=== PATIENT | male | born 1945 | race Caucasian/White ===

== ENCOUNTER 2021-10-01 08:13 | Outpatient (CLI) | payer MEDICARE, MEDICAID, SELFPAY | END 2021-10-01 08:14 | disposition home or self-care (01) | LOC: ANHBWCAUD 08:14 | PROVIDERS: PCP Family Medicine; Visit Provider Family Medicine | DX: H90.3 Sensorineural hearing loss, bilateral (principal) | CPT/HCPCS: 92557; 92567 ==

== ENCOUNTER 2024-09-18 08:14 | Outpatient (CLI) | payer MEDICARE, MEDICAID, SELFPAY ==
--- OUTSIDE RECORDS SUMMARY | 2024-09-18 08:30 | XMS_ITS | Encounter Summary ---
Author Organization [facility] Address [address] [place] [address] Phone Care Team Providers Care Auto Brake Mechanic Name Role Phone Kenyon Cardoso DO Unavailable [phone] Belem Nova MD Unavailable Provider, Unknown Primary Care Provider Unavaila Kahlil Bell MD Primary Care Provider Kacy Blackman MD Primary Care Provider Unavailable Encounter Details Date Type Department Care Team (Late st Contact Info) Description 08/25/2021 [facility] 1 [place] [address] Kahlil Casas MD [address] [place] [address] [address] [place] [address] Encounter for screening for COVID-19 Social History Tobacco Use Types Packs/Day Years Used Date Smoking Tobacco: Former Cigarettes 1 12 2 002 - 2014 Smokeless Tobacco: Never Comments:2014 Alcohol Use Standard Drinks/Week Comments No 0 (1 standard drink = 0.6 oz pur e alcohol) Sex and Gender Information Value Date Recorded Sex Assigned at Not on file Legal Sex Male 7:47 PM CDT Gender Identity Not on file Sexual Orientation Not on file Occupation Industry Job Start Date Job End Date disabilty Not on file Not on file Not on file challenge unlimited. Not on file Not on file Not on file documented as of this encounter Plan of Treatment Not on file documented as of this encounter Procedures Procedure Name Priority Date/Time Associated Diagnosis Comments SARS-COV-2 BY MOLECULAR Routine 08/25/2021 8:05 AM DIRECTOR OF MANAGED CARE Encounter for screening for COVID-19 documented in this encounter Results * SARS-COV-2 BY MOLECULAR (08/25/2021 8:05 AM DIRECTOR OF MANAGED CARE) SARSCOV2 NOT DETECTED (Referen ce Range for this test is Not Detected ) [facility] THERMOFISHER FAST DX 08/26/2021 7:09 AM DIRECTOR OF MANAGED CARE [facility] Comment:This test was perfor med by a RT-PCR method. Other Non-Phlebotomy Collection / Unknown 08/25/2021 8:05 AM DIRECTOR OF MANAGED CARE 08/25/2021 10:58 AM DIRECTOR OF MANAGED CARE Narrative [facility] - 08/26/2021 7:09 AM DIRECTOR OF MANAGED CARE Authorized Fact Sheets about this test for providers and patients are available at: https://www.fda.gov/medical-devices/miynmgjjw-xjadmrhfnh-dyuuvsc-devices/emergen -us e-authorizations Result [facility] Kahlil Casas MD MICROBIOLOGY - GENERAL ORDERAB LES Final Result [facility] [address] [place] [address], documented in this encounter Visit Diagnoses Diagnosis Encounter for screening for COVID-19 documented in this encounter Additional Health Concerns Infection Onset Date Last Indicated Resolved Time COVID - 19 03/31/2021 05/18/2022 05/28/2022 12:1 6 AM DIRECTOR OF MANAGED CARE COVID - 19 07/06/2022 08/31/2022 09/01/2022 11:3 5 AM DIRECTOR OF MANAGED CARE COVID - 19 Confirmed 08/31/2022 08/31/2022 023 12:18 AM CDT documented as of this encounter Care Teams Auto Brake Mechanic Relationship Specialty Start Date End Date Provider, Unknown UNKNOWN PCP - General 03/31/21 05/17/22 Kahlil Casas MD [address] [facility] [address] [place] [address] PCP - General Family Medicine 05/18/22 10/25/22 Kacy Blackman MD [address] [facility] [address] [place] [address] PCP - General Family Medicine 10/26/22 Kenyon Cardoso DO Gastroenterology 11/24/15 [place] [address] [place] [address] Endocrinology 11/30/20 documented as of this encounter
--- OUTSIDE RECORDS SUMMARY | 2024-09-18 08:30 | XMS_ITS | Encounter Summary ---
[facility] Address [address] [place] [address] Phone Care Team Providers Care Manager Life Name Role Phone Kacy Blackman MD Primary Care Provider + [phone] Abbi Monique NP Unavailable [phone] Quita Zapien NP Primary Care Provider + [phone] Desmond Grubbs MD Primary Care Provider + Encounter Details Date Type Department Care Team (Late st Contact Info) Description 05/18/2022 Orders Only [facility] [address] [place] [address] Scanning, Provider Social History Tobacco Use Types Packs/Day Years Used Date Smoking Tobacco: Never Smokeless Tobacco: Never Alcohol Use Standard Drinks/Week Comments No 0 (1 standard drink = 0.6 oz pur e alcohol) PHQ-2 Answer Date Recorded PHQ-2 Total Score (If total score is 3 or more points, staff should administer the PHQ-9) 0 04/19/2022 Sex and Gender Information Value Date Recorded Sex Assigned at Not on file Legal Sex Male 2:47 PM CRIMINOLOGY PROFESSOR Gender Identity Not on file Sexual Orientation Not on file documented as of this encounter Plan of Treatment Not on file documented as of this encounter Procedures Procedure Name Priority Date/Time Associated Diagnosis Comments CARDIOLOGY DOCUMENT SCAN 05/18/2022 documented in this encounter Results * CARDIOLOGY DOCUMENT SCAN (05/18/2022) Anatomical Region Laterality Modality Other us Provider Scanning CV CARDIAC SERVICES PROCEDURES Final Result documented in this encounter Visit Diagnoses Not on filedocumented in this encounter Care Teams Manager Life Relationship Specialty Start Date End Date Kacy Blackman MD PCP - General Family Practice 04/19/22 12/28/23 Quita Zapien NP [address] [facility] [address] [place] [address] PCP - General Fondant Puff Maker 12/29/23 08/18/24 Desmond Grubbs MD [address] [facility] [address] [place] [address] PCP - General Family Medicine 08/19/24 [place] [address] [place] [address] Nurse Practitioner Endocrinology Diabetes & Metabolism 12/15/23 documented as of this encounter
--- OUTSIDE RECORDS SUMMARY | 2024-09-18 08:30 | XMS_ITS | Encounter Summary ---
Author Organization [facility] Address [address] [place] [address] Phone Care Team Providers Care Horticultural Farmer Name Role Phone Kacy Blackman MD Primary Care Provider + [phone] Abbi Monique NP Unavailable [phone] Quita Zapien NP Primary Care Provider + [phone] Desmond Grubbs MD Primary Care Provider + Encounter Details Date Type Department Care Team (Late st Contact Info) Description 06/23/2022 Orders Only [facility] [address] [place] [address] Scanning, Provider Social History Tobacco [...] on file Legal Sex Male 2:47 PM RICE DRIER Gender Identity Not on file Sexual Orientation Not on file documented as of this encounter Plan of Treatment Not on file documented as of this encounter Procedures Procedure Name Priority Date/Time Associated Diagnosis Comments SCAN - LABS 06/23/2022 documented in this encounter Results * SCAN - LABS (06/23/2022) us Provider Scanning Final Result documented in this encounter Visit Diagnoses Not on filedocumented in this encounter Care Teams Horticultural Farmer Relationship Specialty Start Date End Date Kacy Blackman MD PCP - General Family Practice 04/19/22 12/28/23 Quita Zapien NP [address] [facility] [address] [place] [address] PCP - General Superintendent Building 12/29/23 08/18/24 Desmond Grubbs MD [address] [facility] [address] [place] [address] PCP - General Family Medicine 08/19/24 [place] [address] [place] [address] Nurse Practitioner Endocrinology Diabetes & Metabolism 12/15/23 documented as of this encounter
--- OUTSIDE RECORDS SUMMARY | 2024-09-18 08:30 | XMS_ITS | Encounter Summary ---
Author Organization [facility] Address [address] [place] [address] Phone Care Team Providers Care Program And Research Coordinator Name Role Phone Kenyon Cardoso DO Unavailable [phone] Belem Nova MD Unavailable Provider, Unknown Primary Care Provider Unavaila Kahlil Bell MD Primary Care Provider Kacy Blackman MD Primary Care Provider Unavailable Encounter Details Date Type Department Care Team (Late st Contact Info) Description 07/28/2021 [facility] 1 [place] [address] Kahlil Casas MD [address] [place] [address] [address] [place] [address] Encounter for screening for COVID-19 [...] Associated Diagnosis Comments SARS-COV-2 BY MOLECULAR Routine 07/28/2021 6:57 AM STAB SETTER AND DRILLER Encounter for screening for COVID-19 documented in this encounter Results * SARS-COV-2 BY MOLECULAR (07/28/2021 6:57 AM STAB SETTER AND DRILLER) SARSCOV2 NOT DETECTED (Referen ce Range for this test is Not Detected ) [facility] THERMOFISHER FAST DX 07/30/2021 9:45 AM STAB SETTER AND DRILLER [facility] Comment:This test was perfor med by a RT-PCR method. Other Non-Phlebotomy Collection / Unknown 07/28/2021 6:57 AM STAB SETTER AND DRILLER 07/28/2021 1:41 PM STAB SETTER AND DRILLER Narrative [facility] - 07/30/2021 9:45 AM STAB SETTER AND DRILLER Authorized Fact Sheets about this test for providers and patients are available at: https://www.fda.gov/medical-devices/icqlsetmg-ubkuosfkfo-ulkiran-devices/emergen -us e-authorizations Kahlil Casas MD MICROBIOLOGY - GENERAL ORDERAB LES Final Result [facility] [address] [place] [address], documented in this encounter Visit Diagnoses Diagnosis Encounter for screening for COVID-19 documented in this encounter Additional Health Concerns Infection Onset Date Last Indicated Resolved Time COVID - 19 03/31/2021 05/18/2022 05/28/2022 12:1 6 AM STAB SETTER AND DRILLER COVID - 19 07/06/2022 08/31/2022 09/01/2022 11:3 5 AM STAB SETTER AND DRILLER COVID - 19 Confirmed 08/31/2022 08/31/202209/20/ 023 12:18 AM CDT documented as of this encounter Care Teams Program And Research Coordinator Relationship Specialty Start Date End Date Provider, Unknown UNKNOWN PCP - General 03/31/21 05/17/22 Kahlil Casas MD [address] [facility] [address] [place] [address] PCP - General Family Medicine 05/18/22 10/25/22 Kacy Blackman MD [address] [facility] [address] [place] [address] PCP - General Family Medicine 10/26/22 Kenyon Cardoso DO Gastroenterology 11/24/15 [place] [address] [place] [address] Endocrinology 11/30/20 documented as of this encounter
--- OUTSIDE RECORDS SUMMARY | 2024-09-18 08:30 | XMS_ITS | Encounter Summary ---
Author Organization [facility] Address [address] [place] [address] Phone Care Team Providers Care It Network Architect Name Role Phone Kenyon Cardoso DO Unavailable [phone] Belem Nova MD Unavailable Provider, Unknown Primary Care Provider Unavaila Kahlil Bell MD Primary Care Provider Kacy Blackman MD Primary Care Provider Unavailable Encounter Details Date Type Department Care Team (Late st Contact Info) Description 08/04/2021 [facility] 1 [place] [address] Kahlil Casas MD [address] [place] [address] [address] [place] [address] Encounter for screening for COVID-19 [...] Associated Diagnosis Comments SARS-COV-2 BY MOLECULAR Routine 08/04/2021 8:06 AM HOSPICE CARE TRANSITIONS COORDINATOR Encounter for screening for COVID-19 documented in this encounter Results * SARS-COV-2 BY MOLECULAR (08/04/2021 8:06 AM HOSPICE CARE TRANSITIONS COORDINATOR) SARSCOV2 NOT DETECTED (Referen ce Range for this test is Not Detected ) [facility] THERMOFISHER FAST DX 08/05/2021 9:00 AM HOSPICE CARE TRANSITIONS COORDINATOR [facility] Comment:This test was perfor med by a RT-PCR method. Other Non-Phlebotomy Collection / Unknown 08/04/2021 8:06 AM HOSPICE CARE TRANSITIONS COORDINATOR 08/04/2021 11:52 AM HOSPICE CARE TRANSITIONS COORDINATOR Narrative [facility] - 08/05/2021 9:00 AM HOSPICE CARE TRANSITIONS COORDINATOR Authorized Fact Sheets about this test for providers and patients are available at: https://www.fda.gov/medical-devices/btwictmqg-tryotrtxgf-jukhtwy-devices/emergen -us e-authorizations Result [facility] Kahlil Casas MD MICROBIOLOGY - GENERAL ORDERAB LES Final Result [facility] [address] [place] [address], documented in this encounter Visit Diagnoses Diagnosis Encounter for screening for COVID-19 documented in this encounter Additional Health Concerns Infection Onset Date Last Indicated Resolved Time COVID - 19 03/31/2021 05/18/2022 05/28/2022 12:1 6 AM HOSPICE CARE TRANSITIONS COORDINATOR COVID - 19 07/06/2022 08/31/2022 09/01/2022 11:3 5 AM HOSPICE CARE TRANSITIONS COORDINATOR COVID - 19 Confirmed 08/31/2022 08/31/202209/20/ 023 12:18 AM CDT documented as of this encounter Care Teams It Network Architect Relationship Specialty Start Date End Date Provider, Unknown UNKNOWN PCP - General 03/31/21 05/17/22 Kahlil Casas MD [address] [facility] [address] [place] [address] PCP - General Family Medicine 05/18/22 10/25/22 Kacy Blackman MD [address] [facility] [address] [place] [address] PCP - General Family Medicine 10/26/22 Kenyon Cardoso DO Gastroenterology 11/24/15 [place] [address] [place] [address] Endocrinology 11/30/20 documented as of this encounter
--- OUTSIDE RECORDS SUMMARY | 2024-09-18 08:31 | XMS_ITS | Encounter Summary ---
Author [facility] Address [address] [place] [address] Phone Care Team Providers Care Cooperative Extension Agent Name Role Phone Kacy Blackman MD Primary Care Provider + [phone] Abbi Monique NP Unavailable [phone] Quita Zapien NP Primary Care Provider + [phone] Desmond Grubbs MD Primary Care Provider + Encounter Details Date Type Department Care Team (Late st Contact Info) Description 09/07/2022 Orders Only [facility] [address] [place] [address] Scanning, Provider Social History Tobacco [...] on file Legal Sex Male 2:47 PM DETONATOR ASSEMBLER Gender Identity Not on file Sexual Orientation Not on file documented as of this encounter Plan of Treatment Not on file documented as of this encounter Procedures Procedure Name Priority Date/Time Associated Diagnosis Comments SCAN - LABS 09/07/2022 documented in this encounter Results * SCAN - LABS (09/07/2022) us Provider Scanning Edited Result - Final documented in this encounter Visit Diagnoses Not on filedocumented in this encounter Care Teams Cooperative Extension Agent Relationship Specialty Start Date End Date Kacy Blackman MD PCP - General Family Practice 04/19/22 12/28/23 Quita Zapien NP [address] [facility] [address] [place] [address] PCP - General Night Manager 12/29/23 08/18/24 Desmond Grubbs MD [address] [facility] [address] [place] [address] PCP - General Family Medicine 08/19/24 [place] [address] [place] [address] Nurse Practitioner Endocrinology Diabetes & Metabolism 12/15/23 documented as of this encounter
--- OUTSIDE RECORDS SUMMARY | 2024-09-18 08:31 | XMS_ITS | Encounter Summary ---
Author Organization [facility] Address [address] [place] [address] Phone Care Team Providers Care Orthotist Or Prosthetist Name Role Phone Kenyon Cardoso DO Unavailable [phone] Belem Nova MD Unavailable Provider, Unknown Primary Care Provider Unavaila Kahlil Bell MD Primary Care Provider Kacy Blackman MD Primary Care Provider Unavailable Encounter Details Date Type Department Care Team (Late st Contact Info) Description 05/05/2021 [facility] 1 [place] [address] Kahlil Casas MD [address] [place] [address] [address] [place] [address] Encounter for screening for COVID-19 [...] Associated Diagnosis Comments SARS-COV-2 BY MOLECULAR Routine 05/05/2021 8:31 AM CDT Encounter for screening for COVID-19 documented in this encounter Results * SARS-COV-2 BY MOLECULAR (05/05/2021 8:31 AM CDT) SARSCOV2 NOT DETECTED (Referen ce Range for this test is Not Detected ) [facility] THERMOFISHER FAST DX 05/05/2021 11:06 PM CDT [facility] Comment:This test was perfor med by a RT-PCR method. Other Non-Phlebotomy Collection / Unknown 05/05/2021 8:31 AM CDT 05/05/2021 11:10 AM CDT Narrative [facility] - 05/05/2021 11:06 PM CDT Authorized Fact Sheets about this test for providers and patients are available at: https://www.fda.gov/medical-devices/qydfdmdus-dqvhhdtqnj-emdcdoj-devices/emergen cy-us e-authorizations us Kahlil Casas MD MICROBIOLOGY - GENERAL ORDERAB LES Final Result [facility] [address] [place] [address], documented in this encounter Visit Diagnoses Diagnosis Encounter for screening for COVID-19 documented in this encounter Additional Health Concerns Infection Onset Date Last Indicated Resolved Time COVID - 19 03/31/2021 05/18/2022 05/28/2022 12:1 6 AM AQUATICS MANAGER COVID - 19 07/06/2022 08/31/2022 09/01/2022 11:3 5 AM AQUATICS MANAGER COVID - 19 Confirmed 08/31/2022 08/31/202209/20/ 023 12:18 AM CDT documented as of this encounter Care Teams Orthotist Or Prosthetist Relationship Specialty Start Date End Date Provider, Unknown UNKNOWN PCP - General 03/31/21 05/17/22 Kahlil Casas MD [address] [place] [address] [address] [place] [address] PCP - General Family Medicine 05/18/22 10/25/22 Kacy Blackman MD [address] [facility] [address] [place] [address] PCP - General Family Medicine 10/26/22 Kenyon Cardoso DO Gastroenterology 11/24/15 [place] [address] [place] [address] Endocrinology 11/30/20 documented as of this encounter
--- OUTSIDE RECORDS SUMMARY | 2024-09-18 08:31 | XMS_ITS | Encounter Summary ---
Author Organization [facility] Address [address] [place] [address] Phone Care Team Providers Care Computer Help Desk Specialist Name Role Phone Kenyon Cardoso DO Unavailable [phone] Belem Nova MD Unavailable Provider, Unknown Primary Care Provider Unavaila Kahlil Bell MD Primary Care Provider Kacy Blackman MD Primary Care Provider Unavailable Encounter Details Date Type Department Care Team (Late st Contact Info) Description 09/01/2021 [facility] 1 [place] [address] Kahlil Casas MD [address] [place] [address] [address] [place] [address] Encounter for screening for COVID-19 [...] Associated Diagnosis Comments SARS-COV-2 BY MOLECULAR Routine 09/01/2021 8:19 AM MANUFACTURING PLANNER Encounter for screening for COVID-19 documented in this encounter Results * SARS-COV-2 BY MOLECULAR (09/01/2021 8:19 AM MANUFACTURING PLANNER) SARSCOV2 NOT DETECTED (Referen ce Range for this test is Not Detected ) [facility] THERMOFISHER FAST DX 09/01/2021 11:41 PM MANUFACTURING PLANNER [facility] Comment:This test was perfor med by a RT-PCR method. Other Non-Phlebotomy Collection / Unknown 09/01/2021 8:19 AM MANUFACTURING PLANNER 09/01/2021 11:51 AM MANUFACTURING PLANNER Narrative [facility] - 09/01/2021 11:41 PM MANUFACTURING PLANNER Authorized Fact Sheets about this test for providers and patients are available at: https://www.fda.gov/medical-devices/paywpmdcb-pgkbzhvpgj-kneoagt-devices/emergen -us e-authorizations Result [facility] Kahlil Casas MD MICROBIOLOGY - GENERAL ORDERAB LES Final Result [facility] [address] [place] [address], documented in this encounter Visit Diagnoses Diagnosis Encounter for screening for COVID-19 documented in this encounter Additional Health Concerns Infection Onset Date Last Indicated Resolved Time COVID - 19 03/31/2021 05/18/2022 05/28/2022 12:1 6 AM MANUFACTURING PLANNER COVID - 19 07/06/2022 08/31/2022 09/01/2022 11:3 5 AM MANUFACTURING PLANNER COVID - 19 Confirmed 08/31/2022 08/31/202209/20/ 023 12:18 AM CDT documented as of this encounter Care Teams Computer Help Desk Specialist Relationship Specialty Start Date End Date Provider, Unknown UNKNOWN PCP - General 03/31/21 05/17/22 Kahlil Casas MD [address] [facility] [address] [place] [address] PCP - General Family Medicine 05/18/22 10/25/22 Kacy Blackman MD [address] [facility] [place] [address] PCP - General Family Medicine 10/26/22 Kenyon Cardoso DO Gastroenterology 11/24/15 [place] [address] [place] [address] Endocrinology 11/30/20 documented as of this encounter
--- OUTSIDE RECORDS SUMMARY | 2024-09-18 08:31 | XMS_ITS | Encounter Summary ---
Author Organization [facility] Address [address] [place] [address] Phone Care Team Providers Care National Sales Associate Name Role Phone Keynon Cardoso DO Unavailable [phone] Belem Nova MD Unavailable Provider, Unknown Primary Care Provider Unavaila Kahlil Bell MD Primary Care Provider Kacy Blackman MD Primary Care Provider Unavailable Encounter Details Date Type Department Care Team (Late st Contact Info) Description 09/22/2021 [facility] 1 [place] [address] Kahlil Casas MD [address] [place] [address] [address] [place] [address] Encounter for screening for COVID-19 [...] Associated Diagnosis Comments SARS-COV-2 BY MOLECULAR Routine 09/22/2021 8:21 AM CDT Encounter for screening for COVID-19 documented in this encounter Results * SARS-COV-2 BY MOLECULAR (09/22/2021 8:21 AM CDT) SARSCOV2 NOT DETECTED (Referen ce Range for this test is Not Detected ) [facility] THERMOF[facility] FAST DX 09/23/2021 10:15 AM CDT [facility] Comment:This test was perfor med by a RT-PCR method. Other Non-Phlebotomy Collection / Unknown 09/22/2021 8:21 AM CDT 09/22/2021 1:02 PM CDT Narrative [facility] - 09/23/2021 10:15 AM CDT Authorized Fact Sheets about this test for providers and patients are available at: https://www.fda.gov/medical-devices/eedklxeaf-gaxiasjhmq-hzeezse-devices/emergen cy-us e-authorizations us Kahlil Casas MD MICROBIOLOGY - GENERAL ORDERAB LES Final Result [facility] [address] [place] [address], documented in this encounter Visit Diagnoses Diagnosis Encounter for screening for COVID-19 documented in this encounter Additional Health Concerns Infection Onset Date Last Indicated Resolved Time COVID - 19 03/31/2021 05/18/2022 05/28/2022 12:1 6 AM BROTHEL KEEPER COVID - 19 07/06/2022 08/31/2022 09/01/2022 11:3 5 AM BROTHEL KEEPER COVID - 19 Confirmed 08/31/2022 08/31/2022 023 12:18 AM CDT documented as of this encounter Care Teams National Sales Associate Relationship Specialty Start Date End Date Provider, Unknown UNKNOWN PCP - General 03/31/21 05/17/22 Kahlil Casas MD [address] [place] [address] [address] [place] [address] PCP - General Family Medicine 05/18/22 10/25/22 Kacy Blackman MD [address] [facility] [address] [place] [address] PCP - General Family Medicine 10/26/22 Kenyon Cardoso DO Gastroenterology 11/24/15 [place] [address] [place] [address] Endocrinology 11/30/20 documented as of this encounter
--- OUTSIDE RECORDS SUMMARY | 2024-09-18 08:31 | XMS_ITS | Encounter Summary ---
Author Organization [facility] Address [address] [place] [address] Phone Care Team Providers Care Planning Management It Specialist Name Role Phone Kenyon Cardoso DO Unavailable [phone] Belem Nova MD Unavailable Kahlil Casas MD Primary Care Provider [phone] Kacy Blackman MD Primary Care Provider Unavailable Encounter Details Date Type Department Care Team (Late st Contact Info) Description 08/10/2022 Lab Requisition [facility] Laboratory Services 1 [place] [address] Kahlil Casas MD [address] [place] [address] [address] [place] [address] Encounter for screening for COVID-19 [...] Associated Diagnosis Comments SARS-COV-2 BY MOLECULAR Routine 08/10/2022 8:21 AM AIRPORT SKILLED MAINTENANCE SUPERVISOR Encounter for screening for COVID-19 documented in this encounter Results * SARS-COV-2 BY MOLECULAR (08/10/2022 8:21 AM AIRPORT SKILLED MAINTENANCE SUPERVISOR) SARSCOV2 NOT DETECTED (Referen ce Range for this test is Not Detected ) [facility] THERMOFISHER FAST DX 08/10/2022 9:47 PM AIRPORT SKILLED MAINTENANCE SUPERVISOR [facility] Comment:This test was perfor med by a RT-PCR method. Other Non-Phlebotomy Collection / Unknown 08/10/2022 8:21 AM AIRPORT SKILLED MAINTENANCE SUPERVISOR 08/10/2022 9:50 AM AIRPORT SKILLED MAINTENANCE SUPERVISOR Narrative [facility] - 08/10/2022 9:47 PM AIRPORT SKILLED MAINTENANCE SUPERVISOR Authorized Fact Sheets about this test for providers and patients are available at: https://www.fda.gov/medical-devices/tdvzgvpie-khfnujdinx-ismfvrf-devices/emergen -us e-authorizations us Kahlil Casas MD MICROBIOLOGY - GENERAL ORDERAB LES Final Result [facility] [address] [place] [address], documented in this encounter Visit Diagnoses Diagnosis Encounter for screening for COVID-19 documented in this encounter Additional Health Concerns Infection Onset Date Last Indicated Resolved Time COVID - 19 07/06/2022 08/31/2022 09/01/2022 11:3 5 AM AIRPORT SKILLED MAINTENANCE SUPERVISOR COVID - 19 Confirmed 08/31/2022 08/31/202209/20/ 023 12:18 AM CDT documented as of this encounter Care Teams Planning Management It Specialist Relationship Specialty Start Date End Date Kahlil Casas MD [address] [place] [address] [place] [address] PCP - General Family Medicine 05/18/22 10/25/22 Kacy Blackman MD [address] [place] [address] [place] [address] PCP - General Family Medicine 10/26/22 Kenyon Cardoso DO Gastroenterology 11/24/15 [place] [address] [place] [address] Endocrinology 11/30/20 documented as of this encounter
--- OUTSIDE RECORDS SUMMARY | 2024-09-18 08:31 | XMS_ITS | Encounter Summary ---
Author Organization [facility] Address [address] [place] [address] Phone Care Team Providers Care Internet Sourcer Name Role Phone Kenyon Cardoso DO Unavailable [phone] Belem Nova MD Unavailable Provider, Unknown Primary Care Provider Unavaila Kahlil Bell MD Primary Care Provider [phone] Kacy Blackman MD Primary Care Provider Unavailable Encounter Details Date Type Department Care Team (Late st Contact Info) Description 10/13/2021 Lab Requisition [facility] Laboratory Services 1 [place] [address] Kahlil Casas MD [address] [place] [address] [address] [place] [address] Encounter for screening for other viral diseases Social History Tobacco Use Types Packs/Day Years [...] Associated Diagnosis Comments SARS-COV-2 BY MOLECULAR Routine 10/13/2021 9:03 AM CDT documented in this encounter Results * SARS-COV-2 BY MOLECULAR (10/13/2021 9:03 AM CDT) SARSCOV2 NOT DETECTED (Referen ce Range for this test is Not Detected ) [facility] THERMOFISHER FAST DX 10/13/2021 11:28 PM CDT [facility] Comment:This test was perfor med by a RT-PCR method. Other No Phlebotomy Charged / Unknown 10/13/2021 9:03 AM CDT 10/13/2021 12:21 PM CDT Narrative [facility] - 10/13/2021 11:28 PM CDT Authorized Fact Sheets about this test for providers and patients are available at: https://www.fda.gov/medical-devices/gzcykwnuq-mozveggymq-mnjykbc-devices/emergen -us e-authorizations us Kahlil Casas MD MICROBIOLOGY - GENERAL ORDERAB LES Final Result [facility] [address] [place] [address], documented in this encounter Visit Diagnoses Diagnosis Encounter for screening for other viral diseases documented in this encounter Additional Health Concerns Infection Onset Date Last Indicated Resolved Time COVID - 19 03/31/2021 05/18/2022 05/28/2022 12:1 6 AM DIRECTOR OF REGIONAL SALES COVID - 19 07/06/2022 08/31/2022 09/01/2022 11:3 5 AM DIRECTOR OF REGIONAL SALES COVID - 19 Confirmed 08/31/2022 08/31/2022 023 12:18 AM CDT documented as of this encounter Care Teams Internet Sourcer Relationship Specialty Start Date End Date Provider, Unknown UNKNOWN PCP - General 03/31/21 05/17/22 Kahlil Casas MD [address] [facility] [address] [place] [address] PCP - General Family Medicine 05/18/22 10/25/22 Kacy Blackman MD [address] [facility] [place] [address] PCP - General Family Medicine 10/26/22 Kenyon Cardoso DO Gastroenterology 11/24/15 [place] [address] [place] [address] Endocrinology 11/30/20 documented as of this encounter
--- OUTSIDE RECORDS SUMMARY | 2024-09-18 08:31 | XMS_ITS | Encounter Summary ---
Author Organization [facility] Address [address] [place] [address] Phone Care Team Providers Care Automation Qa Tester Name Role Phone Kenyon Cardoso DO Unavailable [phone] Belme Nova MD Unavailable Provider, Unknown Primary Care Provider Unavaila Kahlil Bell MD Primary Care Provider [phone] Kacy Blackman MD Primary Care Provider Unavailable Encounter Details Date Type Department Care Team (Late st Contact Info) Description 09/29/2021 [facility] 1 [place] [address] Kahlil Casas MD [address] [place] [address] [address] [place] [address] Encounter for screening for COVID-19 [...] Associated Diagnosis Comments SARS-COV-2 BY MOLECULAR Routine 09/29/2021 7:59 AM CDT Encounter for screening for COVID-19 documented in this encounter Results * SARS-COV-2 BY MOLECULAR (09/29/2021 7:59 AM CDT) SARSCOV2 NOT DETECTED (Referen ce Range for this test is Not Detected ) [facility] THERMOFISHER FAST DX 09/30/2021 12:07 AM CDT [facility] Comment:This test was perfor med by a RT-PCR method. Other Non-Phlebotomy Collection / Unknown 09/29/2021 7:59 AM CDT 09/29/2021 12:04 PM CDT Narrative [facility] - 09/30/2021 12:07 AM CDT Authorized Fact Sheets about this test for providers and patients are available at: https://www.fda.gov/medical-devices/dtjoevfyn-fsmrljbrto-gctnpge-devices/emergen cy-us e-authorizations us Kahlil Casas MD MICROBIOLOGY - GENERAL ORDERAB LES Final Result [facility] [address] [place] [address], documented in this encounter Visit Diagnoses Diagnosis Encounter for screening for COVID-19 documented in this encounter Additional Health Concerns Infection Onset Date Last Indicated Resolved Time COVID - 19 03/31/2021 05/18/2022 05/28/2022 12:1 6 AM CREDIT CLERK COVID - 19 07/06/2022 08/31/2022 09/01/2022 11:3 5 AM CREDIT CLERK COVID - 19 Confirmed 08/31/2022 08/31/202209/20/ 023 12:18 AM CDT documented as of this encounter Care Teams Automation Qa Tester Relationship Specialty Start Date End Date Provider, Unknown UNKNOWN PCP - General 03/31/21 05/17/22 Kahlil Casas MD [address] [place] [address] [address] [place] [address] PCP - General Family Medicine 05/18/22 10/25/22 Kacy Blackman MD [address] [facility] [address] [place] [address] PCP - General Family Medicine 10/26/22 Kenyon Cardoso DO Gastroenterology 11/24/15 [place] [address] [place] [address] Endocrinology 11/30/20 documented as of this encounter
--- OUTSIDE RECORDS SUMMARY | 2024-09-18 08:31 | XMS_ITS | Encounter Summary ---
Author Organization [facility] Address [address] [place] [address] Phone Care Team Providers Care Condominium Property Manager Name Role Phone Kenyon Cardoso DO Unavailable [phone] Belem Nova MD Unavailable Provider, Unknown Primary Care Provider Unavaila Kahlil Bell MD Primary Care Provider [phone] Kacy Blackman MD Primary Care Provider Unavailable Encounter Details Date Type Department Care Team (Late st Contact Info) Description 05/26/2021 Lab Requisition [facility] Laboratory Services 1 [place] [address] Kahlil Casas MD [address] [place] [address] [address] [place] [address] Social History Tobacco Use Types Packs/Day Years [...] Associated Diagnosis Comments SARS-COV-2 BY MOLECULAR Routine 05/26/2021 8:45 AM LAND ACQUISITION ANALYST documented in this encounter Results * SARS-COV-2 BY MOLECULAR (05/26/2021 8:45 AM LAND ACQUISITION ANALYST) SARSCOV2 NOT DETECTED (Referen ce Range for this test is Not Detected ) [facility] THERMOFISHER FAST DX 05/27/2021 9:14 AM LAND ACQUISITION ANALYST [facility] Comment:This test was perfor med by a RT-PCR method. Other Non-Phlebotomy Collection / Unknown 05/26/2021 8:45 AM LAND ACQUISITION ANALYST 05/26/2021 11:16 AM LAND ACQUISITION ANALYST Narrative [facility] - 05/27/2021 9:14 AM LAND ACQUISITION ANALYST Authorized Fact Sheets about this test for providers and patients are available at: https://www.fda.gov/medical-devices/pfjpmzbvz-fflvtopiqm-gyvbjeh-devices/emergen cy-us e-authorizations us Kahlil Casas MD MICROBIOLOGY - GENERAL ORDERAB LES Final Result [facility] [address] [place] [address], documented in this encounter Visit Diagnoses Not on filedocumented in this encounter Additional Health Concerns Infection Onset Date Last Indicated Resolved Time COVID - 19 03/31/2021 05/18/2022 05/28/2022 12:1 6 AM LAND ACQUISITION ANALYST COVID - 19 07/06/2022 08/31/2022 09/01/2022 11:3 5 AM LAND ACQUISITION ANALYST COVID - 19 Confirmed 08/31/2022 08/31/202209/20/ 023 12:18 AM CDT documented as of this encounter Care Teams Condominium Property Manager Relationship Specialty Start Date End Date Provider, Unknown UNKNOWN PCP - General 03/31/21 05/17/22 Kahlil Casas MD [address] [place] [address] [address] [place] [address] PCP - General Family Medicine 05/18/22 10/25/22 Kacy Blackman MD [address] [facility] [address] [place] [address] PCP - General Family Medicine 10/26/22 Kenyon Cardoso DO Gastroenterology 11/24/15 [place] [address] [place] [address] Endocrinology 11/30/20 documented as of this encounter
--- OUTSIDE RECORDS SUMMARY | 2024-09-18 08:31 | XMS_ITS | Encounter Summary ---
Author Organization [facility] Address [address] [place] [address] Phone Care Team Providers Care Machine Binding Folder Name Role Phone Kenyon Cardoso DO Unavailable [phone] Belem Nova MD Unavailable Provider, Unknown Primary Care Provider Unavaila Kahlil Bell MD Primary Care Provider Kacy Blackman MD Primary Care Provider Unavailable Encounter Details Date Type Department Care Team (Late st Contact Info) Description 09/15/2021 [facility] 1 [place] [address] Kahlil Casas MD [address] [place] [address] [address] [place] [address] Encounter for screening for COVID-19 [...] Associated Diagnosis Comments SARS-COV-2 BY MOLECULAR Routine 09/15/2021 8:02 AM CHECK WRITING MACHINE OPERATOR Encounter for screening for COVID-19 documented in this encounter Results * SARS-COV-2 BY MOLECULAR (09/15/2021 8:02 AM CHECK WRITING MACHINE OPERATOR) SARSCOV2 NOT DETECTED (Referen ce Range for this test is Not Detected ) [facility] THERMOFISHER FAST DX 09/16/2021 10:22 AM CHECK WRITING MACHINE OPERATOR [facility] Comment:This test was perfor med by a RT-PCR method. Other Non-Phlebotomy Collection / Unknown 09/15/2021 8:02 AM CHECK WRITING MACHINE OPERATOR 09/15/2021 10:40 AM CHECK WRITING MACHINE OPERATOR Narrative [facility] - 09/16/2021 10:22 AM CHECK WRITING MACHINE OPERATOR Authorized Fact Sheets about this test for providers and patients are available at: https://www.fda.gov/medical-devices/ycbzzajxc-gayemaalyw-kmriddd-devices/emergen -us e-authorizations Result [facility] Kahlil Casas MD MICROBIOLOGY - GENERAL ORDERAB LES Final Result [facility] [address] [place] [address], documented in this encounter Visit Diagnoses Diagnosis Encounter for screening for COVID-19 documented in this encounter Additional Health Concerns Infection Onset Date Last Indicated Resolved Time COVID - 19 03/31/2021 05/18/2022 05/28/2022 12:1 6 AM CHECK WRITING MACHINE OPERATOR COVID - 19 07/06/2022 08/31/2022 09/01/2022 11:3 5 AM CHECK WRITING MACHINE OPERATOR COVID - 19 Confirmed 08/31/2022 08/31/2022 023 12:18 AM CDT documented as of this encounter Care Teams Machine Binding Folder Relationship Specialty Start Date End Date Provider, Unknown UNKNOWN PCP - General 03/31/21 05/17/22 Kahlil Casas MD [address] [facility] [address] [place] [address] PCP - General Family Medicine 05/18/22 10/25/22 Kacy Blackman MD [address] [facility] [place] [address] PCP - General Family Medicine 10/26/22 Kenyon Cardoso DO Gastroenterology 11/24/15 [place] [address] [place] [address] Endocrinology 11/30/20 documented as of this encounter
--- OUTSIDE RECORDS SUMMARY | 2024-09-18 08:31 | XMS_ITS | Encounter Summary ---
Author Organization [facility] Address [address] [place] [address] Phone Care Team Providers Care Organ Assembler Name Role Phone Kenyon Cardoso DO Unavailable [phone] Belem Nova MD Unavailable Provider, Unknown Primary Care Provider Unavaila Kahlil Bell MD Primary Care Provider Kacy Blackman MD Primary Care Provider Unavailable Encounter Details Date Type Department Care Team (Late st Contact Info) Description 10/06/2021 [facility] 1 [place] [address] Kahlil Casas MD [address] [place] [address] [address] [place] [address] Encounter for screening for [...] Associated Diagnosis Comments SARS-COV-2 BY MOLECULAR Routine 10/06/2021 8:34 AM CDT Encounter for screening for COVID-19 documented in this encounter Results * SARS-COV-2 BY MOLECULAR (10/06/2021 8:34 AM CDT) SARSCOV2 NOT DETECTED (Referen ce Range for this test is Not Detected ) [facility] THERMOFISHER FAST DX 10/07/2021 12:26 AM CDT [facility] Comment:This test was perfor med by a RT-PCR method. Other No Phlebotomy Charged / Unknown 10/06/2021 8:34 AM CDT 10/06/2021 11:50 AM CDT Narrative [facility] - 10/07/2021 12:26 AM CDT Authorized Fact Sheets about this test for providers and patients are available at: https://www.fda.gov/medical-devices/euvplizgx-aegphokbke-kjdkewy-devices/emergen cy-us e-authorizations us Kahlil Casas MD MICROBIOLOGY - GENERAL ORDERAB LES Final Result [facility] [address] [place] [address], documented in this encounter Visit Diagnoses Diagnosis Encounter for screening for COVID-19 documented in this encounter Additional Health Concerns Infection Onset Date Last Indicated Resolved Time COVID - 19 03/31/2021 05/18/2022 05/28/2022 12:1 6 AM HIDE AND SKIN FLESHING MACHINE OPERATOR COVID - 19 07/06/2022 08/31/2022 09/01/2022 11:3 5 AM HIDE AND SKIN FLESHING MACHINE OPERATOR COVID - 19 Confirmed 08/31/2022 08/31/2022 023 12:18 AM CDT documented as of this encounter Care Teams Organ Assembler Relationship Specialty Start Date End Date Provider, Unknown UNKNOWN PCP - General 03/31/21 05/17/22 Kahlil Casas MD [address] [facility] [address] [place] [address] PCP - General Family Medicine 05/18/22 10/25/22 Kacy Balckman MD [address] [facility] [place] [address] PCP - General Family Medicine 10/26/22 Kenyon Cardoso DO Gastroenterology 11/24/15 [place] [address] [place] [address] Endocrinology 11/30/20 documented as of this encounter
--- OUTSIDE RECORDS SUMMARY | 2024-09-18 08:31 | XMS_ITS | Encounter Summary ---
Author Organization [facility] Address [address] [place] [address] Phone Care Team Providers Care Button And Buckle Maker Name Role Phone Kenyon Cardoso DO Unavailable [phone] Belem Nova MD Unavailable Provider, Unknown Primary Care Provider Unavaila Kahlil Bell MD Primary Care Provider Kacy Blackman MD Primary Care Provider Unavailable Encounter Details Date Type Department Care Team (Late st Contact Info) Description 06/23/2021 [facility] 1 [place] [address] Kahlil Casas MD [address] [place] [address] [address] [place] [address] Encounter for screening for COVID-19 [...] Associated Diagnosis Comments SARS-COV-2 BY MOLECULAR Routine 06/23/2021 8:55 AM BOTTLING EQUIPMENT SALES REPRESENTATIVE Encounter for screening for COVID-19 documented in this encounter Results * SARS-COV-2 BY MOLECULAR (06/23/2021 8:55 AM BOTTLING EQUIPMENT SALES REPRESENTATIVE) SARSCOV2 NOT DETECTED (Referen ce Range for this test is Not Detected ) [facility] THERMOFISHER FAST DX 06/24/2021 6:00 PM BOTTLING EQUIPMENT SALES REPRESENTATIVE [facility] Comment:This test was perfor med by a RT-PCR method. Other No Phlebotomy Charged / Unknown 06/23/2021 8:55 AM BOTTLING EQUIPMENT SALES REPRESENTATIVE 06/23/2021 11:11 AM BOTTLING EQUIPMENT SALES REPRESENTATIVE Narrative [facility] - 06/24/2021 6:00 PM BOTTLING EQUIPMENT SALES REPRESENTATIVE Authorized Fact Sheets about this test for providers and patients are available at: https://www.fda.gov/medical-devices/mmljgkimi-ocsgfytkpw-bdmwnik-devices/emergen -us e-authorizations us Kahlil Casas MD MICROBIOLOGY - GENERAL ORDERAB LES Final Result [facility] [address] [place] [address], documented in this encounter Visit Diagnoses Diagnosis Encounter for screening for COVID-19 documented in this encounter Additional Health Concerns Infection Onset Date Last Indicated Resolved Time COVID - 19 03/31/2021 05/18/2022 05/28/2022 12:1 6 AM BOTTLING EQUIPMENT SALES REPRESENTATIVE COVID - 19 07/06/2022 08/31/2022 09/01/2022 11:3 5 AM BOTTLING EQUIPMENT SALES REPRESENTATIVE COVID - 19 Confirmed 08/31/2022 08/31/202209/20/ 023 12:18 AM CDT documented as of this encounter Care Teams Button And Buckle Maker Relationship Specialty Start Date End Date Provider, Unknown UNKNOWN PCP - General 03/31/21 05/17/22 Kahlil Casas MD [address] [facility] [address] [place] [address] PCP - General Family Medicine 05/18/22 10/25/22 Kacy Blackman MD [address] [facility] [place] [address] PCP - General Family Medicine 10/26/22 Kenyon Cardoso DO Gastroenterology 11/24/15 [place] [address] [place] [address] Endocrinology 11/30/20 documented as of this encounter
--- OUTSIDE RECORDS SUMMARY | 2024-09-18 08:31 | XMS_ITS | Encounter Summary ---
Author Organization [facility] Address [address] [place] [address] Phone Care Team Providers Care [employer] Name Role Phone Kenyon Cardoso DO Unavailable [phone] Belem Nova MD Unavailable Provider, Unknown Primary Care Provider Unavaila Kahlil Bell MD Primary Care Provider Kacy Blackman MD Primary Care Provider Unavailable Encounter Details Date Type Department Care Team (Late st Contact Info) Description 04/28/2021 [facility] 1 [place] [address] Kahlil Casas MD [address] [place] [address] [address] [place] [address] Encounter for screening for COVID-19 [...] Associated Diagnosis Comments SARS-COV-2 BY MOLECULAR Routine 04/28/2021 8:54 AM CDT Encounter for screening for COVID-19 documented in this encounter Results * SARS-COV-2 BY MOLECULAR (04/28/2021 8:54 AM CDT) SARSCOV2 NOT DETECTED (Referen ce Range for this test is Not Detected ) [facility] THERMOFISHER FAST DX 04/28/2021 5:44 PM CDT [facility] Comment:This test was perfor med by a RT-PCR method. Other Non-Phlebotomy Collection / Unknown 04/28/2021 8:54 AM CDT 04/28/2021 11:02 AM CDT Narrative [facility] - 04/28/2021 5:44 PM CDT Authorized Fact Sheets about this test for providers and patients are available at: https://www.fda.gov/medical-devices/eytwxkmol-zufguaabrv-puewuhl-devices/emergen cy-us e-authorizations us Kahlil Casas MD MICROBIOLOGY - GENERAL ORDERAB LES Final Result [facility] [address] [place] [address], documented in this encounter Visit Diagnoses Diagnosis Encounter for screening for COVID-19 documented in this encounter Additional Health Concerns Infection Onset Date Last Indicated Resolved Time COVID - 19 03/31/2021 05/18/2022 05/28/2022 12:1 6 AM SECURITY NURSE COVID - 19 07/06/2022 08/31/2022 09/01/2022 11:3 5 AM SECURITY NURSE COVID - 19 Confirmed 08/31/2022 08/31/2022 023 12:18 AM CDT documented as of this encounter Care Teams [employer] Relationship Specialty Start Date End Date Provider, Unknown UNKNOWN PCP - General 03/31/21 05/17/22 Kahlil Casas MD [address] [place] [address] [address] [place] [address] PCP - General Family Medicine 05/18/22 10/25/22 Kacy Blackman MD [address] [facility] [address] [place] [address] PCP - General Family Medicine 10/26/22 Kenyon Cardoso DO Gastroenterology 11/24/15 [place] [address] [place] [address] Endocrinology 11/30/20 documented as of this encounter
--- OUTSIDE RECORDS SUMMARY | 2024-09-18 08:31 | XMS_ITS | Encounter Summary ---
Author Organization [facility] Address [address] [place] [address] Phone Care Team Providers Care B2B Managed Service Sales Exec Name Role Phone Kenyon Cardoso DO Unavailable [phone] Belem Nova MD Unavailable Kahlil Casas MD Primary Care Provider [phone] Kacy Blackman MD Primary Care Provider Unavailable Encounter Details Date Type Department Care Team (Late st Contact Info) Description 08/17/2022 Lab Requisition [facility] Laboratory Services [address] [place] [address] Kahlil Casas MD [address] [place] [address] [address] [place] [address] Encounter for screening for COVID-19 [...] Associated Diagnosis Comments SARS-COV-2 BY MOLECULAR Routine 08/17/2022 8:29 AM CELLULOID TRIMMER Encounter for screening for COVID-19 documented in this encounter Results * SARS-COV-2 BY MOLECULAR (08/17/2022 8:29 AM CELLULOID TRIMMER) SARSCOV2 NOT DETECTED (Referen ce Range for this test is Not Detected ) [facility] THERMOFISHER FAST DX 08/17/2022 11:05 PM CELLULOID TRIMMER [facility] Comment:This test was perfor med by a RT-PCR method. Other Non-Phlebotomy Collection / Unknown 08/17/2022 8:29 AM CELLULOID TRIMMER 08/17/2022 10:19 AM CELLULOID TRIMMER Narrative [facility] - 08/17/2022 11:05 PM CELLULOID TRIMMER Authorized Fact Sheets about this test for providers and patients are available at: https://www.fda.gov/medical-devices/hjdkjxrwm-npkynllyvq-judvogq-devices/emergen -us e-authorizations us Kahlil Casas MD MICROBIOLOGY - GENERAL ORDERAB LES Final Result [facility] [address] [place] [address], documented in this encounter Visit Diagnoses Diagnosis Encounter for screening for COVID-19 documented in this encounter Additional Health Concerns Infection Onset Date Last Indicated Resolved Time COVID - 19 07/06/2022 08/31/2022 09/01/2022 11:3 5 AM CELLULOID TRIMMER COVID - 19 Confirmed 08/31/2022 08/31/202209/20/ 023 12:18 AM CDT documented as of this encounter Care Teams B2B Managed Service Sales Exec Relationship Specialty Start Date End Date Kahlil Casas MD [address] [place] [address] [place] [address] PCP - General Family Medicine 05/18/22 10/25/22 Kacy Blackman MD [address] [place] [address] [place] [address] PCP - General Family Medicine 10/26/22 Kenyon Cardoso DO Gastroenterology 11/24/15 [place] [address] [place] [address] Endocrinology 11/30/20 documented as of this encounter
--- OUTSIDE RECORDS SUMMARY | 2024-09-18 08:31 | XMS_ITS | Encounter Summary ---
Author Organization [facility] Address [address] [place] [address] Phone Care Team Providers Care Ship Scaler Name Role Phone Kenyon Cardoso DO Unavailable [phone] Belem Nova MD Unavailable Provider, Unknown Primary Care Provider Unavaila Kahlil Bell MD Primary Care Provider Kacy Blackman MD Primary Care Provider Unavailable Encounter Details Date Type Department Care Team (Late st Contact Info) Description 07/14/2021 [facility] [address] [place] [address] Kahlil Casas MD [address] [place] [address] [address] [place] [address] Social History Tobacco Use Types [...] Associated Diagnosis Comments SARS-COV-2 BY MOLECULAR Routine 07/14/2021 8:50 AM BEAUTY CULTURIST documented in this encounter Results * SARS-COV-2 BY MOLECULAR (07/14/2021 8:50 AM BEAUTY CULTURIST) SARSCOV2 NOT DETECTED (Referen ce Range for this test is Not Detected ) [facility] THERMOFISHER FAST DX 07/17/2021 12:35 AM BEAUTY CULTURIST [facility] Comment:This test was perfor med by a RT-PCR method. Other Non-Phlebotomy Collection / Unknown 07/14/2021 8:50 AM BEAUTY CULTURIST 07/14/2021 12:06 PM BEAUTY CULTURIST Narrative [facility] - 07/17/2021 12:35 AM BEAUTY CULTURIST Authorized Fact Sheets about this test for providers and patients are available at: https://www.fda.gov/medical-devices/dlypjzgkm-xbrshrghoj-bfoxyly-devices/emergen -us e-authorizations us Kahlil Casas MD MICROBIOLOGY - GENERAL ORDERAB LES Final Result [facility] [address] [place] [address], documented in this encounter Visit Diagnoses Not on filedocumented in this encounter Additional Health Concerns Infection Onset Date Last Indicated Resolved Time COVID - 19 03/31/2021 05/18/2022 05/28/2022 12:1 6 AM BEAUTY CULTURIST COVID - 19 07/06/2022 08/31/2022 09/01/2022 11:3 5 AM BEAUTY CULTURIST COVID - 19 Confirmed 08/31/2022 08/31/202209/20/ 023 12:18 AM CDT documented as of this encounter Care Teams Ship Scaler Relationship Specialty Start Date End Date Provider, Unknown UNKNOWN PCP - General 03/31/21 05/17/22 Kahlil Casas MD [address] [place] [address] [address] [place] [address] PCP - General Family Medicine 05/18/22 10/25/22 Kacy Blackman MD [address] [facility] [address] [place] [address] PCP - General Family Medicine 10/26/22 Kenyon Cardoso DO Gastroenterology 11/24/15 [place] [address] [place] [address] Endocrinology 11/30/20 documented as of this encounter
--- OUTSIDE RECORDS SUMMARY | 2024-09-18 08:31 | XMS_ITS | Encounter Summary ---
Author Organization [facility] Address [address] [place] [address] Phone Care Team Providers Care Care Giver Name Role Phone Kenyon Cardoso DO Unavailable [phone] Belem Nova MD Unavailable Kahlil Casas MD Primary Care Provider [phone] Kacy Blackman MD Primary Care Provider Unavailable Encounter Details Date Type Department Care Team (Late st Contact Info) Description 08/24/2022 Lab Requisition [facility] Laboratory Services [address] [place] [address] Kahlil Casas MD [address] [place] [address] [address] [place] [address] Encounter for screening for COVID-19 [...] Associated Diagnosis Comments SARS-COV-2 BY MOLECULAR Routine 08/24/2022 12:46 PM REGULATORY AFFAIRS ANALYST Encounter for screening for COVID-19 documented in this encounter Results * SARS-COV-2 BY MOLECULAR (08/24/2022 12:46 PM REGULATORY AFFAIRS ANALYST) SARSCOV2 NOT DETECTED (Referen ce Range for this test is Not Detected ) [facility] THERMOFISHER FAST DX 08/25/2022 12:58 PM REGULATORY AFFAIRS ANALYST [facility] Comment:This test was perfor med by a RT-PCR method. Other Non-Phlebotomy Collection / Unknown 08/24/2022 12:46 PM REGULATORY AFFAIRS ANALYST 08/24/2022 1:47 PM REGULATORY AFFAIRS ANALYST Narrative [facility] - 08/25/2022 12:58 PM REGULATORY AFFAIRS ANALYST Authorized Fact Sheets about this test for providers and patients are available at: https://www.fda.gov/medical-devices/wepexuigz-eppumhodoc-taiomvr-devices/emergen -us e-authorizations us Kahlil Casas MD MICROBIOLOGY - GENERAL ORDERAB LES Final Result [facility] [address] [place] [address], documented in this encounter Visit Diagnoses Diagnosis Encounter for screening for COVID-19 documented in this encounter Additional Health Concerns Infection Onset Date Last Indicated Resolved Time COVID - 19 07/06/2022 08/31/2022 09/01/2022 11:3 5 AM REGULATORY AFFAIRS ANALYST COVID - 19 Confirmed 08/31/2022 08/31/202209/20/ 023 12:18 AM CDT documented as of this encounter Care Teams Care Giver Relationship Specialty Start Date End Date Kahlil Casas MD [address] [place] [address] [place] [address] PCP - General Family Medicine 05/18/22 10/25/22 Kacy Blackman MD [address] [place] [address] [place] [address] PCP - General Family Medicine 10/26/22 Kenyon Cardoso DO Gastroenterology 11/24/15 [place] [address] [place] [address] Endocrinology 11/30/20 documented as of this encounter
--- OUTSIDE RECORDS SUMMARY | 2024-09-18 08:31 | XMS_ITS | Clinical Summary ---
Author Organization [facility] Address [address] [place] [address] Care Team Providers Care Freight Trucker Name Role Phone Kenyon Cardoso DO Unavailable [phone] Belem Nova MD Unavailable Kacy Blackman MD Primary Care Provider Unavailable Medications amLODIPine (NORVASC) 10 MG Tablet Take 10 mg by mouth every morning. Active aspirin 81 MG Chewable Tablet Take 81 mg by mouth every morning. Active Lovastatin 10 MG Tablet Take 10 mg by mouth every evening. Active metoprolol Succinate (TOPROL-XL) 100 MG TABLET SR 24 HR Take 100 mg by mouth nightly. Check pulse before giving and if less than 50, do not give. Active sAXagliptin HCl (ONGLYZA) 5 MG Tablet Take 5 mg by mouth every morning. Active losartan potassium-hydro chlorothiazide (HYZAAR) 100-25 MG Tablet Take 1 Tab by mouth every morning. Active Probiotic Product (PROBIOTIC-10 PO) Take 1 Cap by mouth every morning. Active polycarbophil calcium (FIBERCON) 625 MG Tablet Take 1,250 mg by mouth every morning. Active glimepiride (AMARYL) 1 MG Tablet Take 2 mg by mouth every morning. 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 90 Cap 3 0 Active Additional Information Patient taking differently:20 mg OralEVERY MORNING, Reported on 03/25/2020 Dextromethorpha n-guaiFENesin (ROBAFEN DM COUGH PO) Take 10 mL by mouth every 4 hours as needed. Active diphenhydrAMINE (BENADRYL) 25 MG Capsule Take 25 mg by mouth every 6 hours as needed. Active acetaminophen (TYLENOL) 325 MG Tablet Take 650 mg by mouth every 4 hours as needed. Active Magnesium Hydroxide (MILK OF MAGNESIA PO) Take 30 mL by mouth as needed. Active clotrimazole (LOTRIMIN) 1 % Cream Apply nightly. Apply to both feet Active Bacitracin-Poly myxin B (NEOSPORIN EX) by Apply externally route every 8 hours as needed. Active guaiFENesin (ROBITUSSIN) 100 MG/5ML Liquid Indications: 2 TSP PRN Active Active Problems Problem Noted Date Diagnosed Date Vitamin deficiency, unspecified 05/15/2019 Other specified diseases of the digestive system 05/15/2019 Mild mental handicap 11/14/2018 Essential (primary) hypertension 11/14/2018 Unspecified disorder of circulatory system 11/14 Type 2 diabetes mellitus 11/14/2018 Hyperlipidemia, unspecified 11/14/2018 Wilder's esophagus GERD (gastroesophageal reflux disease) Neoplasm of cecum Encounters Date Type Department Care Team Description 09/[facility] [address] [place] [address] Desmond Grubbs MD Type 1 diabetes mellitus with ketoacidosis without coma (HCC); Calculus of lower urinary tract, unspecified; Mild intellectual disabilities; Hyperlipidemia, unspecified; Encounter for screening for malignant neoplasm of prostate; Essential (primary) hypertension 08/28/2024 [facility] [address] [place] [address] Desmond Grubbs MD Type 1 diabetes mellitus without complications (HCC); Hyperlipidemia, unspecified; Mild intellectual disabilities; Gastro-esophageal reflux disease without esophagitis from Last 3 Months Immunizations Immunization Administration Dates Next Due Covid-19, Mrna, Lnp-s, Pf, 3 0 Mcg/0.3 Ml Dose ([employer]) 05/14/2021 Influenza Vaccine greater than 3 yrs 04/22/2017, 04/20/2016,05/26/2011 Influenza Vaccine, Quadrivalent, PF 05/11/2020 Influenza, Seasonal, Injectable, Undefined 05/26 Pneumococcal Vaccine Adult - 23 Valent 1 TB Skin Test 10/17/2011 TDAP Vaccine 05/26/2011 Family History Medical History Relation Name Comments Diabetes Father Heart Disease Father Diabetes Mother Heart Disease Mother Relation Name Status Comments Father Mother Social History Tobacco Use Types Packs/Day Years Used Date Smoking Tobacco: Former Cigarettes 1 12 2 - 2013 Smokeless Tobacco: Never Tobacco Cessation:Counseling Given: No Comments:2013 Alcohol Use Standard Drinks/Week Comments No 0 [...] file Not on file Not on file Last Filed Vital Signs Vital Sign Reading Time Taken Comments Blood Pressure 126/81 05/18/2022 12:05 PM REGISTERED NURSE FIRST ASSISTANT Pulse 62 05/18/2022 12:05 PM REGISTERED NURSE FIRST ASSISTANT Temperature 36 C (96.8 F) 05/18/2022 11:35 AM REGISTERED NURSE FIRST ASSISTANT Respiratory Rate 23 05/18/2022 12:05 PM REGISTERED NURSE FIRST ASSISTANT Oxygen Saturation 98% 05/18/2022 12:05 PM REGISTERED NURSE FIRST ASSISTANT Inhaled Oxygen Concentration - - Weight 83 kg (183 lb) 03/25/2020 1:00 PM CDT Height 170.2 cm (5' 7 ) 03/25/2020 1:00 PM CDT Body Mass Index 28.66 03/25/2020 1:00 PM CDT Plan of Treatment Health Maintenance Due Date Last Done Comments Diabetes: Foot Exam 1944 Hepatitis C Virus (HCV) Screening 1944 Cologuard 1994 Immunochemical Fecal Occult Blood 1994 Zoster Immunization (1 of 2) 1994 Pneumococcal Immunization (50+ years) (2 of 2 - PCV) 03/03/2012 03/03/2011 Respiratory Syncytial Virus (RSV) Immunization (Adult) (1 - 1-dose 75+ series) 11/28/2019 Diabetes: Eye Exam 10/19/2022 10/19/2021, 0 02/07/2019, 02/15/2018 Influenza Immunization (#1) 2024 11/0 08/2019, 04/22/2017, 04/20/2016, Additional history exists SARS-COV-2 Immunization ( season) 2024 04/07/2022, 05/14/2021, 09/10/2020, Additional history exists Diabetes: Hemoglobin A1c 03/14/2025 025, 06/19/2024, 04/12/2022, Additional history exists Colonoscopy 05/18/2025 05/18/2022, 12/09, 11/08/2013 Colorectal Cancer Screening 05/18/2025 Diabetes: Nephropathy Screening 09/11/2025 09/11/2024, 06/19/2024, 12/15/2021 Colonoscopy High Risk 05/18/2032 05/18/2022 , 01/02/2019, 11/08/2013 Pneumococcal Immunization Combined Discontinued 03/03/2011 DTaP/Tdap/Td Immunization Discontinued 05/26/2011 Hepatitis B Immunization Aged Out No longer eligible based on patient's age to complete this topic Meningococcal Immunization (ACWY) Aged Out No longer eligible based on patient's age to complete this topic Rotavirus Immunization Aged Out No lo nger eligible based on patient's age to complete this topic Medical Devices Implanted Type Area Machine Farmworker Device Identifier Shelf Expiration Date Model / Serial / Lot Clip 360 Resolution 235cm - [id number] Implanted:Qty: 1 on 05/18/2022 by Shona Smallwood MD at [facility] IMPLANT [employer] 11/11/2023 [id number] / [id number] / [id number] Clip Hemostatic Resolution 360 Ultra 17mm Opening 235cm Rotatable Control Knob Cath - [id number] Implanted:Qty: 1 on 05/18/2022 by Shona Smallwood MD at [facility] IMPLANT [employer] 11/26/2023 [id number] / [id number] / [id number] Procedures Procedure Name Priority Date/Time Associated Diagnosis Comments CBC WITH AUTO DIFFERENTIAL Routine 09/11/2024 6:48 AM REGISTERED NURSE FIRST ASSISTANT Type 1 diabetes mellitus with ketoacidosis without coma (HCC) Calculus of lower urinary tract, unspecified Mild intellectual disabilities Hyperlipidemia, unspecified Encounter for screening for malignant neoplasm of prostate Essential (primary) hypertension COMPLETE BLOOD COUNT (CBC) WITH DIFF Routine 09/11/2024 6:48 AM REGISTERED NURSE FIRST ASSISTANT Type 1 diabetes mellitus with ketoacidosis without coma (HCC) Calculus of lower urinary tract, unspecified Mild intellectual disabilities Hyperlipidemia, unspecified Encounter for screening for malignant neoplasm of prostate Essential (primary) hypertension THYROID STIMULATING HORMONE (TSH) Routine 09/11/2024 6:48 AM REGISTERED NURSE FIRST ASSISTANT Type 1 diabetes mellitus with ketoacidosis without coma (HCC) Calculus of lower urinary tract, unspecified Mild intellectual disabilities Hyperlipidemia, unspecified Encounter for screening for malignant neoplasm of prostate Essential (primary) hypertension PSA SCREEN Routine 09/11/2024 6:48 AM REGISTERED NURSE FIRST ASSISTANT Type 1 diabetes mellitus with ketoacidosis without coma (HCC) Calculus of lower urinary tract, unspecified Mild intellectual disabilities Hyperlipidemia, unspecified Encounter for screening for malignant neoplasm of prostate Essential (primary) hypertension HEMOGLOBIN A1C W/ ESTIMATED GLUCOSE Routine 09/11/2024 6:48 AM REGISTERED NURSE FIRST ASSISTANT Type 1 diabetes mellitus with ketoacidosis without coma (HCC) Calculus of lower urinary tract, unspecified Mild intellectual disabilities Hyperlipidemia, unspecified Encounter for screening for malignant neoplasm of prostate Essential (primary) hypertension CMP (COMPREHENSIVE METABOLIC PANEL) Routine 09/11/2024 6:48 AM REGISTERED NURSE FIRST ASSISTANT Type 1 diabetes mellitus with ketoacidosis without coma (HCC) Calculus of lower urinary tract, unspecified Mild intellectual disabilities Hyperlipidemia, unspecified Encounter for screening for malignant neoplasm of prostate Essential (primary) hypertension HEPATIC FUNCTION PANEL Routine 08/28/2024 7:31 AM REGISTERED NURSE FIRST ASSISTANT Type 1 diabetes mellitus without complications (HCC) Hyperlipidemia, unspecified Mild intellectual disabilities Gastro-esophageal reflux disease without esophagitis HM DILATED EYE EXAM 10/19/2021 1 2:00 AM CDT COLONOSCOPY Routine 11/08/2013 from Last 3 Months or Most Recently Relevant to Health Maintenance Results * (ABNORMAL) HEMOGLOBIN A1C W/ ESTIMATED GLUCOSE (09/11/2024 6:48 AM REGISTERED NURSE FIRST ASSISTANT) [facility] HGB-A1C 6.3(H) 4.0 - 6.0 % 09/11/2024 8:19 AM REGISTERED NURSE FIRST ASSISTANT [facility] Est Average Glucose 134.1 mg/dL 09/11/2024 8:19 AM REGISTERED NURSE FIRST ASSISTANT [facility] Blood Venipuncture / Unknown 09/11/2024 6:48 AM REGISTERED NURSE FIRST ASSISTANT 09/11/2024 7:39 AM REGISTERED NURSE FIRST ASSISTANT Narrative [facility] - 09/11/2024 8:19 AM REGISTERED NURSE FIRST ASSISTANT HEMOGLOBIN A1C: DIABETIC PATIENTS: WELL-CONTROLLED: 6.2 - 7.0 INTERMEDIATE WELL-CONTROLLED: 7.0 - 9.0 POORLY-CONTROLLED: >9.0 Specimens containing greater than 5% of Hemoglobin F may result in lower than expected % HbA1C results. us Desmond Grubbs MD CHEMISTRY ORDERABLES Final Res ult [facility] [address] [place] [address] * CBC WITH AUTO DIFFERENTIAL (09/11/2024 6:48 AM REGISTERED NURSE FIRST ASSISTANT) [facility] WBC 5.99 4.00 - 12.00 10(3)/mcL 09/11/2024 8:02 AM REGISTERED NURSE FIRST ASSISTANT [facility] RBC 4.48 4.40 - 5.80 10(6)/mcL 09/11/2024 8:02 AM [facility] HEMOGLOBIN (HGB) 13.9 13.0 - 16.5 g/dL 09/11/2024 8:02 AM REGISTERED NURSE FIRST ASSISTANT [facility] HEMATOCRIT (HCT) 41.3 38.0 - 50.0 % 09/11/2024 8:02 AM [facility] MCV 92.2 82.0 - 96.0 fL 09/11/2024 8:02 AM [facility] MCH 31.0 26.0 - 32.0 pg 09/11/2024 8:02 AM [facility] MCHC 33.7 31.0 - 36.0 g/dL 09/11/2024 8:02 AM [facility] PLATELET COUNT 279 140 - 440 10(3)/mcL 09/11/2024 8:02 AM [facility] RDW 14.1 11.8 - 15.5 % 09/11/2024 8:02 AM [facility] MPV 10.4 8.0 - 12.6 fL 09/11/2024 8:02 AM [facility] NEUTROPHILS 62.5 40.0 - 68.0 % 09/11/2024 8:02 AM [facility] LYMPHOCYTES 23.0 19.0 - 49.0 % 09/11/2024 8:02 AM [facility] MONOCYTES 10.0 3.0 - 13.0 % 09/11/2024 8:02 AM [facility] EOSINOPHILS 3.8 0.0 - 8.0 % 09/11/2024 8:02 AM [facility] BASOPHILS 0.7 0.0 - 1.0 % 09/11/2024 8:02 AM [facility] ABSOLUTE NEUTROPHILS 3.74 1.40 - 5.30 10(3)/mcL 09/11/2024 8:02 AM [facility] ABSOLUTE LYMPHOCYTES 1.38 0.90 - 3.30 10(3)/mcL 09/11/2024 8:02 AM [facility] ABSOLUTE MONOCYTES 0.60 0.10 - 0.90 10(3)/mcL 09/11/2024 8:02 AM [facility] ABSOLUTE EOSINOPHIL 0.23 0.00 - 0.50 10(3)/mcL 09/11/2024 8:02 AM [facility] ABSOLUTE BASOPHILS 0.04 0.00 - 0.10 10(3)/mcL 09/11/2024 8:02 AM REGISTERED NURSE FIRST ASSISTANT [facility] NRBC PER 100 WBC 0 09/12/19 8:02 AM REGISTERED NURSE FIRST ASSISTANT [facility] Blood Venipuncture / Unknown 09/11/2024 6:48 AM REGISTERED NURSE FIRST ASSISTANT 09/11/2024 7:39 AM REGISTERED NURSE FIRST ASSISTANT us Desmond Grubbs MD HEMATOLOGY ORDERABLES Final Re sult Performing Organization Address City/[facility] Co de Phone Number [facility] [address] [place] [address] * THYROID STIMULATING HORMONE (TSH) (09/11/2024 6:48 AM REGISTERED NURSE FIRST ASSISTANT) TSH 3.669 0.300 - 5.000 mIU/L 09/11/2024 8:43 AM REGISTERED NURSE FIRST ASSISTANT [facility] Blood Venipuncture / Unknown 09/11/2024 6:48 AM REGISTERED NURSE FIRST ASSISTANT 09/11/2024 7:39 AM REGISTERED NURSE FIRST ASSISTANT us Desmond Grubbs MD CHEMISTRY ORDERABLES Final Res ult Performing Organization Address [facility] de Phone Number [facility] [address] [place] [address] * PSA SCREEN (09/11/2024 6:48 AM REGISTERED NURSE FIRST ASSISTANT) PSA SCREEN, TOTAL 1.77 <4.00 ng/mL 09/11/2024 8:33 AM REGISTERED NURSE FIRST ASSISTANT [facility] Blood Venipuncture / Unknown 09/11/2024 6:48 AM REGISTERED NURSE FIRST ASSISTANT 09/11/2024 7:39 AM REGISTERED NURSE FIRST ASSISTANT Narrative [facility] - 09/11/2024 8:33 AM REGISTERED NURSE FIRST ASSISTANT The ALINITY Total PSA assay is a Chemiluminescent Microparticle Immunoassay (CMIA) for the quantitative determination of total PSA (both free PSA and PSA complexed to [id number]) in human serum. Total PSA values obtained with different assay methods, including Lau PSA assays, cannot be used interchangeably. us Desmond Grubbs MD CHEMISTRY ORDERABLES Final Res ult [facility] [address] [place] [address] * (ABNORMAL) CMP (COMPREHENSIVE METABOLIC PANEL) (09/11/2024 6:48 AM REGISTERED NURSE FIRST ASSISTANT) SODIUM 138 136 - 145 mmol/L 09/11/2024 8:18 AM [facility] POTASSIUM 4.0 3.5 - 5.1 mmol/L 09/11/2024 8:18 AM [facility] CHLORIDE 105 98 - 107 mmol/L 09/11/2024 8:18 AM [facility] CO2, VENOUS 25 22 - 30 mmol/L 09/11/2024 8:18 AM [facility] ANION GAP 12.0 <18.0 mmol/L 09/11/2024 8:18 AM [facility] GLUCOSE 150(H) 70 - 99 mg/dL 09/11/2024 8:18 AM [facility] BUN 23 8 - 26 mg/dL 09/11/2024 8:18 AM [facility] CREATININE, BLOOD 1.30 0.70 - 1.30 mg/dL 09/11/2024 8:18 AM [facility] BUN/CREATININE RATIO 18 12 - 20 ratio 09/11/2024 8:18 AM [facility] TOTAL PROTEIN 7.7 6.0 - 8.0 g/dL 09/11/2024 8:18 AM [facility] ALBUMIN 4.0 3.5 - 5.0 g/dL 09/11/2024 8:18 AM [facility] A/G RATIO 1.1 1.0 - 2.2 09/11/2024 8:18 AM [facility] CALCIUM 9.4 8.7 - 10.5 mg/dL 09/11/2024 8:18 AM REGISTERED NURSE FIRST ASSISTANT [facility] T BILI 0.7 0.2 - 1.2 mg/dL 09/11/2024 8:18 AM REGISTERED NURSE FIRST ASSISTANT [facility] SGOT (AST) 23 <43 U/L 09/11/2024 8:18 AM REGISTERED NURSE FIRST ASSISTANT [facility] SGPT (ALT) 15 <56 U/L 09/11/2024 8:18 AM REGISTERED NURSE FIRST ASSISTANT [facility] ALKALINE PHOSPHATASE 51 40 - 150 U/L 09/11/2024 8:18 AM REGISTERED NURSE FIRST ASSISTANT [facility] GFR, ESTIMATED 56(L) >=60 09/11/2024 8:18 AM REGISTERED NURSE FIRST ASSISTANT [facility] Comment: Creatinine Clearance is the preferred criteria for selecting drug dose adjustments in renally impaired patients. The GFR is provided as additional pertinent clinical information. GFR is reported in mL/min/1.73 sq m. Calculation based on the Chronic Kidney Disease Epidemiology Collaboration (CKD- EPI) equation refit without adjustment for race. GFR, EST. >60 >=60 025 8:18 AM REGISTERED NURSE FIRST ASSISTANT [facility] GFR, EST. NONAFRICAN 53(L) >=60 09/11/2024 8:18 AM [facility] Blood Venipuncture / Unknown 09/11/2024 6:48 AM REGISTERED NURSE FIRST ASSISTANT 09/11/2024 7:39 AM REGISTERED NURSE FIRST ASSISTANT us Desmond Grubbs MD CHEMISTRY ORDERABLES Final Res ult [facility] [address] [place] [address] * HEPATIC FUNCTION PANEL (08/28/2024 7:31 AM REGISTERED NURSE FIRST ASSISTANT) T BILI 0.7 0.2 - 1.2 mg/dL 08/28/2024 8:45 AM REGISTERED NURSE FIRST ASSISTANT [facility] BILIRUBIN,DIRECT 0.2 0.0 - 0.5 mg/dL 08/28/2024 8:45 AM REGISTERED NURSE FIRST ASSISTANT [facility] ALKALINE PHOSPHATASE 62 40 - 150 U/L 08/28/2024 8:45 AM REGISTERED NURSE FIRST ASSISTANT [facility] SGOT (AST) 24 6 - 42 U/L 08/28/2024 8:45 AM REGISTERED NURSE FIRST ASSISTANT [facility] SGPT (ALT) 18 6 - 55 U/L 08/28/2024 8:45 AM REGISTERED NURSE FIRST ASSISTANT [facility] TOTAL PROTEIN 7.8 6.0 - 8.0 g/dL 08/28/2024 8:45 AM REGISTERED NURSE FIRST ASSISTANT [facility] ALBUMIN 4.0 3.5 - 5.0 g/dL 08/28/2024 8:45 AM REGISTERED NURSE FIRST ASSISTANT [facility] Blood Venipuncture / Unknown 08/28/2024 7:31 AM REGISTERED NURSE FIRST ASSISTANT 08/28/2024 8:07 AM REGISTERED NURSE FIRST ASSISTANT us Desmond Grubbs MD CHEMISTRY ORDERABLES Final Res ult Performing Organization Address [facility] de Phone Number [facility] [address] [place] [address] * DILATED EYE EXAM (10/19/2021 12:00 AM CDT) 10/19/2021 us Not On File Provider PROCEDURE/MINOR SURGICAL OR DERABLES Final Result Performing Organization Address City/[facility]/ZIP Co de Phone Number SCAN * COLONOSCOPY (11/08/2013) us Faith Lai MD PROCEDURE/MINOR SURGICAL ORD ERABLES Final Result from Last 3 Months or Most Recently Relevant to Health Maintenance Insurance MEDICAID [place] MEDICARE C [facility] [id number] Care Teams Freight Trucker Relationship Specialty [place] [address] [place] [address] PCP - General Family Medicine 10/26/22 Kenyon Cardoso DO Gastroenterology 11/24/15 [place] [address] [place] [address] Endocrinology 11/30/20
--- OUTSIDE RECORDS SUMMARY | 2024-09-18 08:31 | XMS_ITS | Encounter Summary ---
Author Organization [facility] Address [address] [place] [address] Phone Care Team Providers Care Process Development Chemist Name Role Phone Kenyon Cardoso DO Unavailable [phone] Belem Nova MD Unavailable Provider, Unknown Primary Care Provider Unavaila Kahlil Bell MD Primary Care Provider [phone] Kacy Blackman MD Primary Care Provider Unavailable Encounter Details Date Type Department Care Team (Late st Contact Info) Description 06/30/2021 [facility] [address] [place] [address] Kahlil Casas MD [address] [place] [address] [address] [place] [address] Encounter for screening for COVID-19 [...] Associated Diagnosis Comments SARS-COV-2 BY MOLECULAR Routine 06/30/2021 8:29 AM OCCUPATIONAL THERAPIST AIDE Encounter for screening for COVID-19 documented in this encounter Results * SARS-COV-2 BY MOLECULAR (06/30/2021 8:29 AM OCCUPATIONAL THERAPIST AIDE) SARSCOV2 NOT DETECTED (Referen ce Range for this test is Not Detected ) [facility] THERMOFISHER FAST DX 07/03/2021 8:57 AM OCCUPATIONAL THERAPIST AIDE [facility] Comment:This test was perfor med by a RT-PCR method. Other Non-Phlebotomy Collection / Unknown 06/30/2021 8:29 AM OCCUPATIONAL THERAPIST AIDE 06/30/2021 10:42 AM OCCUPATIONAL THERAPIST AIDE Narrative [facility] - 07/03/2021 8:57 AM OCCUPATIONAL THERAPIST AIDE Authorized Fact Sheets about this test for providers and patients are available at: https://www.fda.gov/medical-devices/zvgsacbsv-ksqzfzmamo-aryytqv-devices/emergen -us e-authorizations Result [facility] Kahlil Casas MD MICROBIOLOGY - GENERAL ORDERAB LES Final Result [facility] [address] [place] [address], documented in this encounter Visit Diagnoses Diagnosis Encounter for screening for COVID-19 documented in this encounter Additional Health Concerns Infection Onset Date Last Indicated Resolved Time COVID - 19 03/31/2021 05/18/2022 05/28/2022 12:1 6 AM OCCUPATIONAL THERAPIST AIDE COVID - 19 07/06/2022 08/31/2022 09/01/2022 11:3 5 AM OCCUPATIONAL THERAPIST AIDE COVID - 19 Confirmed 08/31/2022 08/31/202209/20/ 023 12:18 AM CDT documented as of this encounter Care Teams Process Development Chemist Relationship Specialty Start Date End Date Provider, Unknown UNKNOWN PCP - General 03/31/21 05/17/22 Kahlil Casas MD [address] [place] [address] PCP - General Family Medicine 05/18/22 10/25/22 Kacy Blackman MD [address] [place] [address] PCP - General Family Medicine 10/26/22 Kenyon Cardoso DO Gastroenterology 11/24/15 [place] [address] [place] [address] Endocrinology 11/30/20 documented as of this encounter
--- OUTSIDE RECORDS SUMMARY | 2024-09-18 08:31 | XMS_ITS | Encounter Summary ---
Author Organization [facility] Address [address] [place] [address] Phone Care Team Providers Care Network Systems Operator Name Role Phone Kenyon Cardoso DO Unavailable [phone] Belem Nova MD Unavailable Provider, Unknown Primary Care Provider Unavaila Kahlil Bell MD Primary Care Provider [phone] Kacy Blackman MD Primary Care Provider Unavailable Encounter Details Date Type Department Care Team (Late st Contact Info) Description 10/20/2021 [facility] [address] [place] [address] Kahlil Casas MD [address] [place] [address] [address] [place] [address] Encounter for screening for COVID-19 [...] Associated Diagnosis Comments SARS-COV-2 BY MOLECULAR Routine 10/20/2021 9:08 AM CDT Encounter for screening for COVID-19 documented in this encounter Results * SARS-COV-2 BY MOLECULAR (10/20/2021 9:08 AM CDT) SARSCOV2 NOT DETECTED (Referen ce Range for this test is Not Detected ) [facility] THERMOFISHER FAST DX 10/21/2021 6:24 AM CDT [facility] Comment:This test was perfor med by a RT-PCR method. Other No Phlebotomy Charged / Unknown 10/20/2021 9:08 AM CDT 10/20/2021 12:52 PM CDT Narrative [facility] - 10/21/2021 6:24 AM CDT Authorized Fact Sheets about this test for providers and patients are available at: https://www.fda.gov/medical-devices/zdvandjdk-phmsfetsxo-bzwhwyv-devices/emergen cy-us e-authorizations us Kahlil Casas MD MICROBIOLOGY - GENERAL ORDERAB LES Final Result [facility] [address] [place] [address], documented in this encounter Visit Diagnoses Diagnosis Encounter for screening for COVID-19 documented in this encounter Additional Health Concerns Infection Onset Date Last Indicated Resolved Time COVID - 19 03/31/2021 05/18/2022 05/28/2022 12:1 6 AM BIRD RAISER COVID - 19 07/06/2022 08/31/2022 09/01/2022 11:3 5 AM BIRD RAISER COVID - 19 Confirmed 08/31/2022 08/31/2022 023 12:18 AM CDT documented as of this encounter Care Teams Network Systems Operator Relationship Specialty Start Date End Date Provider, Unknown UNKNOWN PCP - General 03/31/21 05/17/22 Kahlil Casas MD [address] [place] [address] [address] [place] [address] PCP - General Family Medicine 05/18/22 10/25/22 Kacy Blackman MD [address] [place] [address] PCP - General Family Medicine 10/26/22 Kenyon Cardoso DO Gastroenterology 11/24/15 [place] [address] [place] [address] Endocrinology 11/30/20 documented as of this encounter
--- OUTSIDE RECORDS SUMMARY | 2024-09-18 08:31 | XMS_ITS | Encounter Summary ---
Author Organization [facility] Address [address] [place] [address] Phone Care Team Providers Care Cutter Operator Tile Name Role Phone Kenyon Cardoso DO Unavailable [phone] Belem Nova MD Unavailable Provider, Unknown Primary Care Provider Unavaila Kahlil Bell MD Primary Care Provider Kacy Blackman MD Primary Care Provider Unavailable Encounter Details Date Type Department Care Team (Late st Contact Info) Description 05/19/2021 [facility] 1 [place] [address] Kahlil Casas MD [address] [place] [address] [address] [place] [address] Encounter for screening for COVID-19 [...] Associated Diagnosis Comments SARS-COV-2 BY MOLECULAR Routine 05/19/2021 8:37 AM FLOUR TESTER Encounter for screening for COVID-19 documented in this encounter Results * SARS-COV-2 BY MOLECULAR (05/19/2021 8:37 AM FLOUR TESTER) SARSCOV2 NOT DETECTED (Referen ce Range for this test is Not Detected ) [facility] THERMOFISHER FAST DX 05/20/2021 1:33 PM FLOUR TESTER [facility] Comment:This test was perfor med by a RT-PCR method. Other No Phlebotomy Charged / Unknown 05/19/2021 8:37 AM FLOUR TESTER 05/19/2021 10:36 AM FLOUR TESTER Narrative [facility] - 05/20/2021 1:33 PM FLOUR TESTER Authorized Fact Sheets about this test for providers and patients are available at: https://www.fda.gov/medical-devices/rxvthqskh-sxfhthfyww-wliwtte-devices/emergen -us e-authorizations Kahlil Casas MD MICROBIOLOGY - GENERAL ORDERAB LES Final Result [facility] [address] [place] [address], documented in this encounter Visit Diagnoses Diagnosis Encounter for screening for COVID-19 documented in this encounter Additional Health Concerns Infection Onset Date Last Indicated Resolved Time COVID - 19 03/31/2021 05/18/2022 05/28/2022 12:1 6 AM FLOUR TESTER COVID - 19 07/06/2022 08/31/2022 09/01/2022 11:3 5 AM FLOUR TESTER COVID - 19 Confirmed 08/31/2022 08/31/202209/20/ 023 12:18 AM CDT documented as of this encounter Care Teams Cutter Operator Tile Relationship Specialty Start Date End Date Provider, Unknown UNKNOWN PCP - General 03/31/21 05/17/22 Kahlil Casas MD [address] [facility] [address] [place] [address] PCP - General Family Medicine 05/18/22 10/25/22 Kacy Blackman MD [address] [facility] [address] [place] [address] PCP - General Family Medicine 10/26/22 Kenyon Cardoso DO Gastroenterology 11/24/15 [place] [address] [place] [address] Endocrinology 11/30/20 documented as of this encounter
--- OUTSIDE RECORDS SUMMARY | 2024-09-18 08:31 | XMS_ITS | Encounter Summary ---
[facility] Address [address] [place] [address] Phone Care Team Providers Care Hollow Handle Knife Assembler Name Role Phone Kacy Blackman MD Primary Care Provider + [phone] Abbi Monique NP Unavailable [phone] Quita Zapien NP Primary Care Provider + [phone] Desmond Grubbs MD Primary Care Provider + Encounter Details Date Type Department Care Team (Late st Contact Info) Description 09/28/2022 Orders Only [facility] [address] [place] [address] Scanning, Provider Social History Tobacco [...] on file Legal Sex Male 2:47 PM WOOD BOX MAKER Gender Identity Not on file Sexual Orientation Not on file documented as of this encounter Plan of Treatment Not on file documented as of this encounter Procedures Procedure Name Priority Date/Time Associated Diagnosis Comments SCAN - LABS 09/28/2022 documented in this encounter Results * SCAN - LABS (09/28/2022) us Provider Scanning Edited Result - Final documented in this encounter Visit Diagnoses Not on filedocumented in this encounter Care Teams Hollow Handle Knife Assembler Relationship Specialty Start Date End Date Kacy Blackman MD PCP - General Family Practice 04/19/22 12/28/23 Quita Zapien NP [address] [facility] [address] [place] [address] PCP - General Egg Factory Worker 12/29/23 08/18/24 Desmond Grubbs MD [address] [facility] [address] [place] [address] PCP - General Family Medicine 08/19/24 [place] [address] [place] [address] Nurse Practitioner Endocrinology Diabetes & Metabolism 12/15/23 documented as of this encounter
--- OUTSIDE RECORDS SUMMARY | 2024-09-18 08:31 | XMS_ITS | Encounter Summary ---
Author Organization [facility] Address [address] [place] [address] Phone Care Team Providers Care Defence Force Member Other Ranks Name Role Phone Kenyon Cardoso DO Unavailable [phone] Belem Nova MD Unavailable Provider, Unknown Primary Care Provider Unavaila Kahlil Bell MD Primary Care Provider [phone] Kacy Blackman MD Primary Care Provider Unavailable Encounter Details Date Type Department Care Team (Late st Contact Info) Description 03/31/[address] [facility] 1 [place] [address] Kahlil Casas MD [address] [place] [address] [address] [place] [address] Social History Tobacco Use Types [...] Associated Diagnosis Comments SARS-COV-2 BY MOLECULAR Routine 03/31/2021 7:06 AM CDT documented in this encounter Results * SARS-COV-2 BY MOLECULAR (03/31/2021 7:06 AM CDT) SARSCOV2 NOT DETECTED (Referen ce Range for this test is Not Detected ) [facility] THERMOFISHER FAST DX 04/01/2021 8:26 AM CDT [facility] Comment:This test was perfor med by a RT-PCR method. Other No Phlebotomy Charged / Unknown 03/31/2021 7:06 AM CDT 03/31/2021 11:27 AM CDT Narrative [facility] - 04/01/2021 8:26 AM CDT Authorized Fact Sheets about this test for providers and patients are available at: https://www.fda.gov/medical-devices/yqzvnakai-zbtdqvkpmh-ridjyvh-devices/emergen cy-us e-authorizations us Kahlil Casas MD MICROBIOLOGY - GENERAL ORDERAB LES Final Result [facility] [address] [facility] [place] [address], documented in this encounter Visit Diagnoses Not on filedocumented in this encounter Additional Health Concerns Infection Onset Date Last Indicated Resolved Time COVID - 19 03/31/2021 05/18/2022 05/28/2022 12:1 6 AM REPAIRER WELDING SYSTEMS AND EQUIPMENT COVID - 19 07/06/2022 08/31/2022 09/01/2022 11:3 5 AM REPAIRER WELDING SYSTEMS AND EQUIPMENT COVID - 19 Confirmed 08/31/2022 08/31/2022// 023 12:18 AM CDT documented as of this encounter Care Teams Defence Force Member Other Ranks Relationship Specialty Start Date End Date Provider, Unknown UNKNOWN PCP - General 03/31/21 05/17/22 Kahlil Casas MD [address] [facility] [address] [place] [address] PCP - General Family Medicine 05/18/22 10/25/22 Kacy Blackman MD [address] [facility] [address] [place] [address] PCP - General Family Medicine 10/26/22 Kenyon Cardoso DO Gastroenterology 11/24/15 [place] [address] [place] [address] Endocrinology 11/30/20 documented as of this encounter
--- OUTSIDE RECORDS SUMMARY | 2024-09-18 08:31 | XMS_ITS | Encounter Summary ---
Author Organization [facility] Address [address] [place] [address] Phone Care Team Providers Care Auto Glass Technician Name Role Phone Kenyon Cardoso DO Unavailable [phone] Belem Nova MD Unavailable Provider, Unknown Primary Care Provider Unavaila Kahlil Bell MD Primary Care Provider Kacy Blackman MD Primary Care Provider Unavailable Encounter Details Date Type Department Care Team (Late st Contact Info) Description 07/07/2021 [facility] 1 [place] [address] Kahlil Casas MD [address] [place] [address] [address] [place] [address] Encounter for screening for COVID-19 [...] Associated Diagnosis Comments SARS-COV-2 BY MOLECULAR Routine 07/07/2021 8:35 AM TILE AND MOTTLE SUPERVISOR Encounter for screening for COVID-19 documented in this encounter Results * SARS-COV-2 BY MOLECULAR (07/07/2021 8:35 AM TILE AND MOTTLE SUPERVISOR) SARSCOV2 NOT DETECTED (Referen ce Range for this test is Not Detected ) [facility] THERMOFISHER FAST DX 07/10/2021 9:50 AM TILE AND MOTTLE SUPERVISOR [facility] Comment:This test was perfor med by a RT-PCR method. Other No Phlebotomy Charged / Unknown 07/07/2021 8:35 AM TILE AND MOTTLE SUPERVISOR 07/07/2021 12:32 PM TILE AND MOTTLE SUPERVISOR Narrative [facility] - 07/10/2021 9:50 AM TILE AND MOTTLE SUPERVISOR Authorized Fact Sheets about this test for providers and patients are available at: https://www.fda.gov/medical-devices/xmfljwwfs-gwjyjkciut-wzpkrah-devices/emergen -us e-authorizations Kahlil Casas MD MICROBIOLOGY - GENERAL ORDERAB LES Final Result [facility] [address] [place] [address], documented in this encounter Visit Diagnoses Diagnosis Encounter for screening for COVID-19 documented in this encounter Additional Health Concerns Infection Onset Date Last Indicated Resolved Time COVID - 19 03/31/2021 05/18/2022 05/28/2022 12:1 6 AM TILE AND MOTTLE SUPERVISOR COVID - 19 07/06/2022 08/31/2022 09/01/2022 11:3 5 AM TILE AND MOTTLE SUPERVISOR COVID - 19 Confirmed 08/31/2022 08/31/202209/20/ 023 12:18 AM CDT documented as of this encounter Care Teams Auto Glass Technician Relationship Specialty Start Date End Date Provider, Unknown UNKNOWN PCP - General 03/31/21 05/17/22 Kahlil Casas MD [address] [facility] [address] [place] [address] PCP - General Family Medicine 05/18/22 10/25/22 Kacy Blackman MD [address] [facility] [place] [address] PCP - General Family Medicine 10/26/22 Kenyon Cardoso DO Gastroenterology 11/24/15 [place] [address] [place] [address] Endocrinology 11/30/20 documented as of this encounter
--- OUTSIDE RECORDS SUMMARY | 2024-09-18 08:31 | XMS_ITS | Encounter Summary ---
Author Organization [facility] Address [address] [place] [address] Phone Care Team Providers Care Platform Material Handling Supervisor Name Role Phone Kenyon Cardoso DO Unavailable [phone] Belem Nova MD Unavailable Kahlil Casas MD Primary Care Provider Kacy Blackman MD Primary Care Provider Unavailable Encounter Details Date Type Department Care Team (Late st Contact Info) Description 08/31/2022 Lab Requisition [facility] Laboratory Services 1 [place] [address] Kahlil Casas MD [address] [place] [address] [address] [place] [address] Encounter for screening for COVID-19 [...] Associated Diagnosis Comments SARS-COV-2 BY MOLECULAR Routine 08/31/2022 8:29 AM BELT MACHINE OPERATOR Encounter for screening for COVID-19 documented in this encounter Results * (ABNORMAL) SARS-COV-2 BY MOLECULAR (08/31/2022 8:29 AM BELT MACHINE OPERATOR) SARSCOV2 DETECTED( A) (Referenc e Range for this test is Not Detected) [facility] THERMOFISHER FAST DX 09/01/2022 11:35 AM BELT MACHINE OPERATOR [facility] Comment:This test was perfor med by a RT-PCR method. Other Non-Phlebotomy Collection / Unknown 08/31/2022 8:29 AM BELT MACHINE OPERATOR 08/31/2022 10:33 AM BELT MACHINE OPERATOR Narrative [facility] - 09/01/2022 11:35 AM BELT MACHINE OPERATOR Authorized Fact Sheets about this test for providers and patients are available at: https://www.fda.gov/medical-devices/znzfiygvi-olhqxqikfr-pagsxzx-devices/emergen -us e-authorizations us Kahlil Casas MD MICROBIOLOGY - GENERAL ORDERAB LES Final Result [facility] [address] [place] [address], documented in this encounter Visit Diagnoses Diagnosis Encounter for screening for COVID-19 documented in this encounter Additional Health Concerns Infection Onset Date Last Indicated Resolved Time COVID - 19 07/06/2022 08/31/2022 09/01/2022 11:3 5 AM BELT MACHINE OPERATOR COVID - 19 Confirmed 08/31/2022 08/31/202209/20/ 023 12:18 AM CDT documented as of this encounter Care Teams Platform Material Handling Supervisor Relationship Specialty Start Date End Date Kahlil Casas MD [address] [facility] [place] [address] PCP - General Family Medicine 05/18/22 10/25/22 Kacy Blackman MD [address] [facility] [place] [address] PCP - General Family Medicine 10/26/22 Kenyon Cardoso DO Gastroenterology 11/24/15 [place] [address] [place] [address] Endocrinology 11/30/20 documented as of this encounter
--- OUTSIDE RECORDS SUMMARY | 2024-09-18 08:31 | XMS_ITS | Encounter Summary ---
Author Organization [facility] Address [address] [place] [address] Phone Care Team Providers Care Program Aide Group Work Name Role Phone Kenyon Cardoso DO Unavailable [phone] Belem Nova MD Unavailable Provider, Unknown Primary Care Provider Unavaila Kahlil Bell MD Primary Care Provider [phone] Kacy Blackman MD Primary Care Provider Unavailable Encounter Details Date Type Department Care Team (Late st Contact Info) Description 08/18/2021 [facility] 1 [place] [address] Kahlil Casas MD [address] [place] [address] [address] [place] [address] Encounter for screening for COVID-19 [...] Associated Diagnosis Comments SARS-COV-2 BY MOLECULAR Routine 08/18/2021 7:55 AM TAXONOMIST Encounter for screening for COVID-19 documented in this encounter Results * SARS-COV-2 BY MOLECULAR (08/18/2021 7:55 AM TAXONOMIST) SARSCOV2 NOT DETECTED (Referen ce Range for this test is Not Detected ) [facility] THERMOFISHER FAST DX 08/18/2021 11:49 PM TAXONOMIST [facility] Comment:This test was perfor med by a RT-PCR method. Other Non-Phlebotomy Collection / Unknown 08/18/2021 7:55 AM TAXONOMIST 08/18/2021 12:19 PM TAXONOMIST Narrative [facility] - 08/18/2021 11:49 PM TAXONOMIST Authorized Fact Sheets about this test for providers and patients are available at: https://www.fda.gov/medical-devices/gadjuxyut-uquqblfjcc-vehicdf-devices/emergen -us e-authorizations Kahlil Casas MD MICROBIOLOGY - GENERAL ORDERAB LES Final Result [facility] [address] [place] [address], documented in this encounter Visit Diagnoses Diagnosis Encounter for screening for COVID-19 documented in this encounter Additional Health Concerns Infection Onset Date Last Indicated Resolved Time COVID - 19 03/31/2021 05/18/2022 05/28/2022 12:1 6 AM TAXONOMIST COVID - 19 07/06/2022 08/31/2022 09/01/2022 11:3 5 AM TAXONOMIST COVID - 19 Confirmed 08/31/2022 08/31/202209/20/ 023 12:18 AM CDT documented as of this encounter Care Teams Program Aide Group Work Relationship Specialty Start Date End Date Provider, Unknown UNKNOWN PCP - General 03/31/21 05/17/22 Kahlil Casas MD [address] [facility] [address] [place] [address] PCP - General Family Medicine 05/18/22 10/25/22 Kacy Blackman MD [address] [facility] [place] [address] PCP - General Family Medicine 10/26/22 Kenyon Cardoso DO Gastroenterology 11/24/15 [place] [address] [place] [address] Endocrinology 11/30/20 documented as of this encounter
--- OUTSIDE RECORDS SUMMARY | 2024-09-18 08:31 | XMS_ITS | Encounter Summary ---
Author Organization [facility] Address [address] [place] [address] Phone Care Team Providers Care News Specialist Name Role Phone Kenyon Cardoso DO Unavailable [phone] Belem Nova MD Unavailable Provider, Unknown Primary Care Provider Unavaila Kahlil Bell MD Primary Care Provider [phone] Kacy Blackman MD Primary Care Provider Unavailable Encounter Details Date Type Department Care Team (Late st Contact Info) Description 09/08/2021 [facility] 1 [place] [address] Kahlil Casas MD [address] [place] [address] [address] [place] [address] Encounter for screening for COVID-19 [...] Associated Diagnosis Comments SARS-COV-2 BY MOLECULAR Routine 09/08/2021 8:10 AM DIRECTOR CONSUMER Encounter for screening for COVID-19 documented in this encounter Results * SARS-COV-2 BY MOLECULAR (09/08/2021 8:10 AM DIRECTOR CONSUMER) SARSCOV2 NOT DETECTED (Referen ce Range for this test is Not Detected ) [facility] THERMOFISHER FAST DX 09/09/2021 12:19 AM DIRECTOR CONSUMER [facility] Comment:This test was perfor med by a RT-PCR method. Other Non-Phlebotomy Collection / Unknown 09/08/2021 8:10 AM DIRECTOR CONSUMER 09/08/2021 11:24 AM DIRECTOR CONSUMER Narrative [facility] - 09/09/2021 12:19 AM DIRECTOR CONSUMER Authorized Fact Sheets about this test for providers and patients are available at: https://www.fda.gov/medical-devices/etnvdltfz-ogzsqqsftf-pzlbjia-devices/emergen -us e-authorizations Result [facility] Kahlil Casas MD MICROBIOLOGY - GENERAL ORDERAB LES Final Result [facility] [address] [place] [address], documented in this encounter Visit Diagnoses Diagnosis Encounter for screening for COVID-19 documented in this encounter Additional Health Concerns Infection Onset Date Last Indicated Resolved Time COVID - 19 03/31/2021 05/18/2022 05/28/2022 12:1 6 AM DIRECTOR CONSUMER COVID - 19 07/06/2022 08/31/2022 09/01/2022 11:3 5 AM DIRECTOR CONSUMER COVID - 19 Confirmed 08/31/2022 08/31/202209/20/ 023 12:18 AM CDT documented as of this encounter Care Teams News Specialist Relationship Specialty Start Date End Date Provider, Unknown UNKNOWN PCP - General 03/31/21 05/17/22 Kahlil Casas MD [address] [facility] [address] [place] [address] PCP - General Family Medicine 05/18/22 10/25/22 Kacy Blackman MD [address] [facility] [place] [address] PCP - General Family Medicine 10/26/22 Kenyon Cardoso DO Gastroenterology 11/24/15 [place] [address] [place] [address] Endocrinology 11/30/20 documented as of this encounter
--- OUTSIDE RECORDS SUMMARY | 2024-09-18 08:31 | XMS_ITS | Encounter Summary ---
Author Organization [facility] Address [address] [place] [address] Phone Care Team Providers Care Automotive Parts Coordinator Name Role Phone Kenyon Cardoso DO Unavailable [phone] Belem Nova MD Unavailable Provider, Unknown Primary Care Provider Unavaila Kahlil Bell MD Primary Care Provider [phone] Kacy Blackman MD Primary Care Provider Unavailable Encounter Details Date Type Department Care Team (Late st Contact Info) Description 05/12/2021 [facility] 1 [place] [address] Kahlil Casas MD [address] [place] [address] [address] [place] [address] Encounter for screening for COVID-19 [...] Associated Diagnosis Comments SARS-COV-2 BY MOLECULAR Routine 05/12/2021 8:23 AM CDT Encounter for screening for COVID-19 documented in this encounter Results * SARS-COV-2 BY MOLECULAR (05/12/2021 8:23 AM CDT) SARSCOV2 NOT DETECTED (Referen ce Range for this test is Not Detected ) [facility] THERMOFISHER FAST DX 05/12/2021 11:51 PM CDT [facility] Comment:This test was perfor med by a RT-PCR method. Other No Phlebotomy Charged / Unknown 05/12/2021 8:23 AM CDT 05/12/2021 10:56 AM CDT Narrative [facility] - 05/12/2021 11:51 PM CDT Authorized Fact Sheets about this test for providers and patients are available at: https://www.fda.gov/medical-devices/fmysktpqo-ymfcjbalkn-anacinj-devices/emergen cy-us e-authorizations us Kahlil Casas MD MICROBIOLOGY - GENERAL ORDERAB LES Final Result [facility] [address] [place] [address], documented in this encounter Visit Diagnoses Diagnosis Encounter for screening for COVID-19 documented in this encounter Additional Health Concerns Infection Onset Date Last Indicated Resolved Time COVID - 19 03/31/2021 05/18/2022 05/28/2022 12:1 6 AM YEAST CAKE CUTTER COVID - 19 07/06/2022 08/31/2022 09/01/2022 11:3 5 AM YEAST CAKE CUTTER COVID - 19 Confirmed 08/31/2022 08/31/2022 023 12:18 AM CDT documented as of this encounter Care Teams Automotive Parts Coordinator Relationship Specialty Start Date End Date Provider, Unknown UNKNOWN PCP - General 03/31/21 05/17/22 Kahlil Csaas MD [address] [facility] [address] [place] [address] PCP - General Family Medicine 05/18/22 10/25/22 Kacy Blackman MD [address] [facility] [place] [address] PCP - General Family Medicine 10/26/22 Kenyon Cardoso DO Gastroenterology 11/24/15 [place] [address] [place] [address] Endocrinology 11/30/20 documented as of this encounter
--- OUTSIDE RECORDS SUMMARY | 2024-09-18 08:31 | XMS_ITS | Encounter Summary ---
Author Organization [facility] Address [address] [place] [address] Phone Care Team Providers Care Iron Handler Name Role Phone Kacy Blackman MD Primary Care Provider [phone] Abbi Monique NP Unavailable [phone] Quita Zapien NP Primary Care Provider [phone] Desmond Grubbs MD Primary Care Provider + Encounter Details Date Type Department Care Team (Late st Contact Info) Description 09/14/2022 Orders Only [facility] [address] [place] [address] Scanning, Provider Social History Tobacco [...] on file Legal Sex Male 2:47 PM TRIM MACHINE OPERATOR Gender Identity Not on file Sexual Orientation Not on file documented as of this encounter Plan of Treatment Not on file documented as of this encounter Procedures Procedure Name Priority Date/Time Associated Diagnosis Comments SCAN - LABS 09/14/2022 documented in this encounter Results * SCAN - LABS (09/14/2022) us Provider Scanning Edited Result - Final documented in this encounter Visit Diagnoses Not on filedocumented in this encounter Care Teams Iron Handler Relationship Specialty Start Date End Date Kacy Blackman MD PCP - General Family Practice 04/19/22 12/28/23 Quita Zapien NP [address] [facility] [address] [place] [address] PCP - General Distance Learning Coordinator 12/29/23 08/18/24 Desmond Grubbs MD [address] [facility] [address] [place] [address] PCP - General Family Medicine 08/19/24 [place] [address] [place] [address] Nurse Practitioner Endocrinology Diabetes & Metabolism 12/15/23 documented as of this encounter
--- OUTSIDE RECORDS SUMMARY | 2024-09-18 08:31 | XMS_ITS | Encounter Summary ---
Author Organization [facility] Address [address] [place] [address] Phone Care Team Providers Care Door Repairman Name Role Phone Kenyon Cardoso DO Unavailable [phone] Belem Nova MD Unavailable Provider, Unknown Primary Care Provider Unavaila Kahlil Bell MD Primary Care Provider [phone] Kacy Blackman MD Primary Care Provider Unavailable Encounter Details Date Type Department Care Team (Late st Contact Info) Description 07/21/2021 [facility] 1 [place] [address] Kahlil Casas MD [address] [place] [address] [address] [place] [address] Encounter for screening for COVID-19 [...] Associated Diagnosis Comments SARS-COV-2 BY MOLECULAR Routine 07/21/2021 8:45 AM DELIVERY DRIVER Encounter for screening for COVID-19 documented in this encounter Results * SARS-COV-2 BY MOLECULAR (07/21/2021 8:45 AM DELIVERY DRIVER) SARSCOV2 NOT DETECTED (Referen ce Range for this test is Not Detected ) [facility] THERMOF[facility] FAST DX 07/23/2021 6:12 AM DELIVERY DRIVER [facility] Comment:This test was perfor med by a RT-PCR method. Other Non-Phlebotomy Collection / Unknown 07/21/2021 8:45 AM DELIVERY DRIVER 07/21/2021 11:37 AM DELIVERY DRIVER Narrative [facility] - 07/23/2021 6:12 AM DELIVERY DRIVER Authorized Fact Sheets about this test for providers and patients are available at: https://www.fda.gov/medical-devices/fphbsviae-vjgizpdymc-khhwznk-devices/emergen -us e-authorizations Result [facility] Kahlil Casas MD MICROBIOLOGY - GENERAL ORDERAB LES Final Result [facility] [address] [place] [address], documented in this encounter Visit Diagnoses Diagnosis Encounter for screening for COVID-19 documented in this encounter Additional Health Concerns Infection Onset Date Last Indicated Resolved Time COVID - 19 03/31/2021 05/18/2022 05/28/2022 12:1 6 AM DELIVERY DRIVER COVID - 19 07/06/2022 08/31/2022 09/01/2022 11:3 5 AM DELIVERY DRIVER COVID - 19 Confirmed 08/31/2022 08/31/2022 023 12:18 AM CDT documented as of this encounter Care Teams Door Repairman Relationship Specialty Start Date End Date Provider, Unknown UNKNOWN PCP - General 03/31/21 05/17/22 Kahlil Casas MD [address] [facility] [address] [place] [address] PCP - General Family Medicine 05/18/22 10/25/22 Kacy Blackman MD [address] [facility] [place] [address] PCP - General Family Medicine 10/26/22 Kenyon Cardoso DO Gastroenterology 11/24/15 [place] [address] [place] [address] Endocrinology 11/30/20 documented as of this encounter
--- OUTSIDE RECORDS SUMMARY | 2024-09-18 08:31 | XMS_ITS | Encounter Summary ---
Author Organization [facility] Address [address] [place] [address] Phone Care Team Providers Care Enterprise Application Developer Name Role Phone Kenyon Cardoso DO Unavailable [phone] Belem Nova MD Unavailable Kahlil Casas MD Primary Care Provider Kacy Blackman MD Primary Care Provider Unavailable Encounter Details Date Type Department Care Team (Late st Contact Info) Description 08/04/2022 Lab Requisition [facility] Laboratory Services 1 [place] [address] Kahlil Casas MD [address] [place] [address] [address] [place] [address] Encounter for screening for COVID-19 [...] Associated Diagnosis Comments SARS-COV-2 BY MOLECULAR Routine 08/04/2022 8:37 AM REFINERY OPERATOR ALKYLATION Encounter for screening for COVID-19 documented in this encounter Results * SARS-COV-2 BY MOLECULAR (08/04/2022 8:37 AM REFINERY OPERATOR ALKYLATION) SARSCOV2 NOT DETECTED (Referen ce Range for this test is Not Detected ) [facility] FAST DX 08/04/2022 5:12 PM REFINERY OPERATOR ALKYLATION [facility] Comment:This test was perfor med by a RT-PCR method. Other Non-Phlebotomy Collection / Unknown 08/04/2022 8:37 AM REFINERY OPERATOR ALKYLATION 08/04/2022 10:07 AM REFINERY OPERATOR ALKYLATION Narrative [facility] - 08/04/2022 5:12 PM REFINERY OPERATOR ALKYLATION Authorized Fact Sheets about this test for providers and patients are available at: https://www.fda.gov/medical-devices/zvvpgsiqb-pdemiomqfu-yjzslzx-devices/emergen -us e-authorizations us Kahlil Casas MD MICROBIOLOGY - GENERAL ORDERAB LES Final Result [facility] [address] [place] [address], documented in this encounter Visit Diagnoses Diagnosis Encounter for screening for COVID-19 documented in this encounter Additional Health Concerns Infection Onset Date Last Indicated Resolved Time COVID - 19 07/06/2022 08/31/2022 09/01/2022 11:3 5 AM REFINERY OPERATOR ALKYLATION COVID - 19 Confirmed 08/31/2022 08/31/202209/20/ 023 12:18 AM CDT documented as of this encounter Care Teams Enterprise Application Developer Relationship Specialty Start Date End Date Kahlil Casas MD [address] [place] [address] [place] [address] PCP - General Family Medicine 05/18/22 10/25/22 Kacy Blackman MD [address] [place] [address] [place] [address] PCP - General Family Medicine 10/26/22 Kenyon Cardoso DO Gastroenterology 11/24/15 [place] [address] [place] [address] Endocrinology 11/30/20 documented as of this encounter
--- OUTSIDE RECORDS SUMMARY | 2024-09-18 08:31 | XMS_ITS | Encounter Summary ---
Author Organization [facility] Address [address] [place] [address] Phone Care Team Providers Care Nursery Laborer Name Role Phone Kenyon Cardoso DO Unavailable [phone] Belem Nova MD Unavailable Provider, Unknown Primary Care Provider Unavaila Kahlil Bell MD Primary Care Provider [phone] Kacy Blackman MD Primary Care Provider Unavailable Encounter Details Date Type Department Care Team (Late st Contact Info) Description 06/09/2021 [facility] 1 [place] [address] Kahlil Casas MD [address] [place] [address] [address] [place] [address] Encounter for screening for COVID-19 [...] Associated Diagnosis Comments SARS-COV-2 BY MOLECULAR Routine 06/09/2021 8:20 AM REGULATORY AFFAIRS INTERN documented in this encounter Results * SARS-COV-2 BY MOLECULAR (06/09/2021 8:20 AM REGULATORY AFFAIRS INTERN) SARSCOV2 NOT DETECTED (Referen ce Range for this test is Not Detected ) [facility] THERMOFISHER FAST DX 06/09/2021 11:54 PM REGULATORY AFFAIRS INTERN [facility] Comment:This test was perfor med by a RT-PCR method. Other No Phlebotomy Charged / Unknown 06/09/2021 8:20 AM REGULATORY AFFAIRS INTERN 06/09/2021 10:45 AM REGULATORY AFFAIRS INTERN Narrative [facility] - 06/09/2021 11:54 PM REGULATORY AFFAIRS INTERN Authorized Fact Sheets about this test for providers and patients are available at: https://www.fda.gov/medical-devices/ukbaqrfqy-irfdemelky-gownhsr-devices/emergen -us e-authorizations us Kahlil Casas MD MICROBIOLOGY - GENERAL ORDERAB LES Final Result [facility] [address] [facility] [place] [address], documented in this encounter Visit Diagnoses Diagnosis Encounter for screening for COVID-19 documented in this encounter Additional Health Concerns Infection Onset Date Last Indicated Resolved Time COVID - 19 03/31/2021 05/18/2022 05/28/2022 12:1 6 AM REGULATORY AFFAIRS INTERN COVID - 19 07/06/2022 08/31/2022 09/01/2022 11:3 5 AM REGULATORY AFFAIRS INTERN COVID - 19 Confirmed 08/31/2022 08/31/202209/20/ 023 12:18 AM CDT documented as of this encounter Care Teams Nursery Laborer Relationship Specialty Start Date End Date Provider, Unknown UNKNOWN PCP - General 03/31/21 05/17/22 Kahlil Casas MD [address] [place] [address] [address] [place] [address] PCP - General Family Medicine 05/18/22 10/25/22 Kacy Blackman MD [address] [facility] [place] [address] PCP - General Family Medicine 10/26/22 Kenyon Cardoso DO Gastroenterology 11/24/15 [place] [address] [place] [address] Endocrinology 11/30/20 documented as of this encounter
--- OUTSIDE RECORDS SUMMARY | 2024-09-18 08:31 | XMS_ITS | Encounter Summary ---
Author Organization [facility] Address [address] [place] [address] Phone Care Team Providers Care Almond Grinder Name Role Phone Kenyon Cardoso DO Unavailable [phone] Belem Nova MD Unavailable Provider, Unknown Primary Care Provider Unavaila Kahlil Bell MD Primary Care Provider Kacy Blackman MD Primary Care Provider Unavailable Encounter Details Date Type Department Care Team (Late st Contact Info) Description 10/27/2021 [facility] 1 [place] [address] Kahlil Casas MD [address] [place] [address] [address] [place] [address] Encounter for screening for COVID-19 [...] Associated Diagnosis Comments SARS-COV-2 BY MOLECULAR Routine 10/27/2021 9:34 AM CDT Encounter for screening for COVID-19 documented in this encounter Results * SARS-COV-2 BY MOLECULAR (10/27/2021 9:34 AM CDT) SARSCOV2 NOT DETECTED (Referen ce Range for this test is Not Detected ) [facility] THERMOFISHER FAST DX 10/27/2021 11:12 PM CDT [facility] Comment:This test was perfor med by a RT-PCR method. Other Non-Phlebotomy Collection / Unknown 10/27/2021 9:34 AM CDT 10/27/2021 1:41 PM CDT Narrative [facility] - 10/27/2021 11:12 PM CDT Authorized Fact Sheets about this test for providers and patients are available at: https://www.fda.gov/medical-devices/sqspclxrd-fgguwygxam-yhpxaep-devices/emergen cy-us e-authorizations us Kahlil Casas MD MICROBIOLOGY - GENERAL ORDERAB LES Final Result [facility] [address] [place] [address], documented in this encounter Visit Diagnoses Diagnosis Encounter for screening for COVID-19 documented in this encounter Additional Health Concerns Infection Onset Date Last Indicated Resolved Time COVID - 19 03/31/2021 05/18/2022 05/28/2022 12:1 6 AM DEFECT REPAIRER GLASSWARE COVID - 19 07/06/2022 08/31/2022 09/01/2022 11:3 5 AM DEFECT REPAIRER GLASSWARE COVID - 19 Confirmed 08/31/2022 08/31/2022 023 12:18 AM CDT documented as of this encounter Care Teams Almond Grinder Relationship Specialty Start Date End Date Provider, Unknown UNKNOWN PCP - General 03/31/21 05/17/22 Kahlil Casas MD [address] [place] [address] [address] [place] [address] PCP - General Family Medicine 05/18/22 10/25/22 Kacy Blackman MD [address] [facility] [address] [place] [address] PCP - General Family Medicine 10/26/22 Kenyon Cardoso DO Gastroenterology 11/24/15 [place] [address] [place] [address] Endocrinology 11/30/20 documented as of this encounter
--- OUTSIDE RECORDS SUMMARY | 2024-09-18 08:31 | XMS_ITS | Encounter Summary ---
Author Organization [facility] Address [address] [place] [address] Phone Care Team Providers Care Technology Education Teacher Name Role Phone Kenyon Cardoso DO Unavailable [phone] Belem Nova MD Unavailable Provider, Unknown Primary Care Provider Unavaila Kahlil Bell MD Primary Care Provider Kacy Blackman MD Primary Care Provider Unavailable Encounter Details Date Type Department Care Team (Late st Contact Info) Description 06/16/2021 [facility] 1 [place] [address] Kahlil Casas MD [address] [place] [address] [address] [place] [address] Encounter for screening for COVID-19 [...] Associated Diagnosis Comments SARS-COV-2 BY MOLECULAR Routine 06/16/2021 8:46 AM MATERIALS INTERN Encounter for screening for COVID-19 documented in this encounter Results * SARS-COV-2 BY MOLECULAR (06/16/2021 8:46 AM MATERIALS INTERN) SARSCOV2 NOT DETECTED (Referen ce Range for this test is Not Detected ) [facility] THERMOFISHER FAST DX 06/17/2021 5:59 PM MATERIALS INTERN [facility] Comment:This test was perfor med by a RT-PCR method. Other No Phlebotomy Charged / Unknown 06/16/2021 8:46 AM MATERIALS INTERN 06/16/2021 11:28 AM MATERIALS INTERN Narrative [facility] - 06/17/2021 5:59 PM MATERIALS INTERN Authorized Fact Sheets about this test for providers and patients are available at: https://www.fda.gov/medical-devices/nynutpebc-dulrtgwmgq-jpgwooa-devices/emergen -us e-authorizations us Kahlil Casas MD MICROBIOLOGY - GENERAL ORDERAB LES Final Result [facility] [address] [place] [address], documented in this encounter Visit Diagnoses Diagnosis Encounter for screening for COVID-19 documented in this encounter Additional Health Concerns Infection Onset Date Last Indicated Resolved Time COVID - 19 03/31/2021 05/18/2022 05/28/2022 12:1 6 AM MATERIALS INTERN COVID - 19 07/06/2022 08/31/2022 09/01/2022 11:3 5 AM MATERIALS INTERN COVID - 19 Confirmed 08/31/2022 08/31/202209/20/ 023 12:18 AM CDT documented as of this encounter Care Teams Technology Education Teacher Relationship Specialty Start Date End Date Provider, Unknown UNKNOWN PCP - General 03/31/21 05/17/22 Kahlil Casas MD [address] [facility] [address] [place] [address] PCP - General Family Medicine 05/18/22 10/25/22 Kacy Blackman MD [address] [facility] [place] [address] PCP - General Family Medicine 10/26/22 Kenyon Cardoso DO Gastroenterology 11/24/15 [place] [address] [place] [address] Endocrinology 11/30/20 documented as of this encounter
--- OUTSIDE RECORDS SUMMARY | 2024-09-18 08:31 | XMS_ITS | Encounter Summary ---
Author Organization [facility] Address [address] [place] [address] Phone Care Team Providers Care Learning Facilitator Name Role Phone Kenyon Cardoso DO Unavailable [phone] Belem Nova MD Unavailable Provider, Unknown Primary Care Provider Unavaila Kahlil Bell MD Primary Care Provider Kacy Blackman MD Primary Care Provider Unavailable Encounter Details Date Type Department Care Team (Late st Contact Info) Description 09/29/2021 [facility] 1 [place] [address] Kahlil Casas MD [address] [place] [address] [address] [place] [address] Encounter for screening for COVID-19 [...] on file documented as of this encounter Visit Diagnoses Diagnosis Encounter for screening for COVID-19 documented in this encounter Additional Health Concerns Infection Onset Date Last Indicated Resolved Time COVID - 19 03/31/2021 05/18/2022 05/28/2022 12:1 6 AM RETAIL ASSOCIATE MANAGER BILINGUAL COVID - 19 07/06/2022 08/31/2022 09/01/2022 11:3 5 AM RETAIL ASSOCIATE MANAGER BILINGUAL COVID - 19 Confirmed 08/31/2022 08/31/2022 023 12:18 AM CDT documented as of this encounter Care Teams Learning Facilitator Relationship Specialty Start Date End Date Provider, Unknown UNKNOWN PCP - General 03/31/21 05/17/22 Kahlil Casas MD [address] [place] [address] [place] [address] PCP - General Family Medicine 05/18/22 10/25/22 Kacy Blackman MD [address] [place] [address] [place] [address] PCP - General Family Medicine 10/26/22 Kenyon Cardoso DO Gastroenterology 11/24/15 [place] [address] [place] [address] Endocrinology 11/30/20 documented as of this encounter
--- OUTSIDE RECORDS SUMMARY | 2024-09-18 08:31 | XMS_ITS | Encounter Summary ---
Author Organization [facility] Address [address] [place] [address] Phone Care Team Providers Care Auto Clocks Repairer Name Role Phone Kenyon Cardoso DO Unavailable [phone] Belem Nova MD Unavailable Kacy Blackman MD Primary Care Provider Unavailable Encounter Details Date Type Department Care Team (Late st Contact Info) Description 06/19/2024 Lab Requisition [facility] Laboratory Services [address] [place] [address] Hussein Avitia MD [address] [place] [address] Essential (primary) hypertension; Mild intellectual disabilities; Calculus of lower urinary tract, unspecified; Hyperlipidemia, unspecified; Type 1 diabetes mellitus with ketoacidosis without coma (HCC); Hormone replacement therapy; Encounter for general adult medical examination without abnormal findings Social History Tobacco Use Types Packs/Day Years Used Date Smoking Tobacco: Former Cigarettes 1 12 2 002 - 2013 Smokeless Tobacco: Never Comments:2013 Alcohol Use Standard Drinks/Week Comments No [...] Procedure Name Priority Date/Time Associated Diagnosis Comments HEMOGLOBIN A1C W/ ESTIMATED GLUCOSE Routine 06/19/2024 6:07 AM PHARMACEUTICAL OPERATOR Essential (primary) hypertension Mild intellectual disabilities Calculus of lower urinary tract, unspecified Hyperlipidemia, unspecified Type 1 diabetes mellitus with ketoacidosis without coma (HCC) Hormone replacement therapy Encounter for general adult medical examination without abnormal findings CBC WITH AUTO DIFFERENTIAL Routine 06/19/2024 6:07 AM PHARMACEUTICAL OPERATOR Essential (primary) hypertension Mild intellectual disabilities Calculus of lower urinary tract, unspecified Hyperlipidemia, unspecified Type 1 diabetes mellitus with ketoacidosis without coma (HCC) Hormone replacement therapy Encounter for general adult medical examination without abnormal findings THYROID STIMULATING HORMONE (TSH) Routine 06/19/2024 6:07 AM PHARMACEUTICAL OPERATOR Essential (primary) hypertension Mild intellectual disabilities Calculus of lower urinary tract, unspecified Hyperlipidemia, unspecified Type 1 diabetes mellitus with ketoacidosis without coma (HCC) Hormone replacement therapy Encounter for general adult medical examination without abnormal findings CMP (COMPREHENSIVE METABOLIC PANEL) Routine 06/19/2024 6:07 AM PHARMACEUTICAL OPERATOR Essential (primary) hypertension Mild intellectual disabilities Calculus of lower urinary tract, unspecified Hyperlipidemia, unspecified Type 1 diabetes mellitus with ketoacidosis without coma (HCC) COMPLETE BLOOD COUNT (CBC) WITH DIFF Routine 06/19/2024 6:07 AM PHARMACEUTICAL OPERATOR Essential (primary) hypertension Mild intellectual disabilities Calculus of lower urinary tract, unspecified Hyperlipidemia, unspecified Type 1 diabetes mellitus with ketoacidosis without coma (HCC) Hormone replacement therapy Encounter for general adult medical examination without abnormal findings documented in this encounter Results * CBC WITH AUTO DIFFERENTIAL (06/19/2024 6:07 AM PHARMACEUTICAL OPERATOR) WBC 6.53 4.00 - 12.00 10(3)/[facility] 06/19/2024 8:10 AM PHARMACEUTICAL OPERATOR [facility] RBC 4.55 4.40 - 5.80 10(6)/mcL 06/19/2024 8:10 AM PHARMACEUTICAL OPERATOR [facility] HEMOGLOBIN (HGB) 14.1 13.0 - 16.5 g/dL 06/19/2024 8:10 AM [facility] HEMATOCRIT (HCT) 42.0 38.0 - 50.0 % 06/19/2024 8:10 AM [facility] MCV 92.3 82.0 - 96.0 fL 06/19/2024 8:10 AM [facility] MCH 31.0 26.0 - 32.0 pg 06/19/2024 8:10 AM [facility] MCHC 33.6 31.0 - 36.0 g/dL 06/19/2024 8:10 AM [facility] PLATELET COUNT 255 140 - 440 10(3)/mcL 06/19/2024 8:10 AM [facility] RDW 13.6 11.8 - 15.5 % 06/19/2024 8:10 AM [facility] MPV 11.4 8.0 - 12.6 fL 06/19/2024 8:10 AM [facility] NEUTROPHILS 63.1 40.0 - 68.0 % 06/19/2024 8:10 AM [facility] LYMPHOCYTES 22.8 19.0 - 49.0 % 06/19/2024 8:10 AM [facility] MONOCYTES 9.3 3.0 - 13.0 % 06/19/2024 8:10 AM [facility] EOSINOPHILS 4.0 0.0 - 8.0 % 06/19/2024 8:10 AM [facility] BASOPHILS 0.8 0.0 - 1.0 % 06/19/2024 8:10 AM [facility] ABSOLUTE NEUTROPHILS 4.12 1.40 - 5.30 10(3)/mcL 06/19/2024 8:10 AM [facility] ABSOLUTE LYMPHOCYTES 1.49 0.90 - 3.30 10(3)/mcL 06/19/2024 8:10 AM [facility] ABSOLUTE MONOCYTES 0.61 0.10 - 0.90 10(3)/mcL 06/19/2024 8:10 AM PHARMACEUTICAL OPERATOR [facility] ABSOLUTE EOSINOPHIL 0.26 0.00 - 0.50 10(3)/mcL 06/19/2024 8:10 AM PHARMACEUTICAL OPERATOR [facility] ABSOLUTE BASOPHILS 0.05 0.00 - 0.10 10(3)/mcL 06/19/2024 8:10 AM PHARMACEUTICAL OPERATOR [facility] NRBC PER 100 WBC 0 06/19/20 8:10 AM PHARMACEUTICAL OPERATOR [facility] Blood Venipuncture / Unknown 06/19/2024 6:07 AM PHARMACEUTICAL OPERATOR 06/19/2024 8:00 AM PHARMACEUTICAL OPERATOR Hussein Avitia MD HEMATOLOGY ORDERABLES Final Res ult Performing Organization Address City/[facility]/ZIP Co de Phone Number [facility] [place] [address] * THYROID STIMULATING HORMONE (TSH) (06/19/2024 6:07 AM PHARMACEUTICAL OPERATOR) Pathologist [facility] TSH 4.094 0.300 - 5.000 mIU/L 06/19/2024 8:59 AM PHARMACEUTICAL OPERATOR [facility] Blood Venipuncture / Unknown 06/19/2024 6:07 AM PHARMACEUTICAL OPERATOR 06/19/2024 8:00 AM PHARMACEUTICAL OPERATOR Hussein Avitia MD CHEMISTRY ORDERABLES Final Resu lt Performing Organization Address City/[facility]/ZIP Co de Phone Number [facility] [place] [address] * (ABNORMAL) HEMOGLOBIN A1C W/ ESTIMATED GLUCOSE (06/19/2024 6:07 AM PHARMACEUTICAL OPERATOR) HGB-A1C 6.9(H) 4.0 - 6.0 % 06/19/2024 9:42 AM PHARMACEUTICAL OPERATOR [facility] Est Average Glucose 151.3 mg/dL 06/19/2024 9:42 AM [facility] Blood Venipuncture / Unknown 06/19/2024 6:07 AM PHARMACEUTICAL OPERATOR 06/19/2024 8:00 AM PHARMACEUTICAL OPERATOR Narrative [facility] - 06/19/2024 9:42 AM PHARMACEUTICAL OPERATOR HEMOGLOBIN A1C: DIABETIC PATIENTS: WELL-CONTROLLED: 6.2 - 7.0 INTERMEDIATE WELL-CONTROLLED: 7.0 - 9.0 POORLY-CONTROLLED: >9.0 us Hussein Avitia MD CHEMISTRY ORDERABLES Final Resu lt [facility] [place] [address] * (ABNORMAL) CMP (COMPREHENSIVE METABOLIC PANEL) (06/19/2024 6:07 AM [facility]) SODIUM 140 136 - 145 mmol/L 06/19/2024 8:41 AM [facility] POTASSIUM 3.6 3.5 - 5.1 mmol/L 06/19/2024 8:41 AM [facility] CHLORIDE 104 98 - 107 mmol/L 06/19/2024 8:41 AM [facility] CO2, VENOUS 24 22 - 30 mmol/L 06/19/2024 8:41 AM [facility] ANION GAP 15.6 <18.0 mmol/L 06/19/2024 8:41 AM [facility] GLUCOSE 86 70 - 99 mg/dL 06/19/2024 8:41 AM [facility] BUN 26 8 - 26 mg/dL 06/19/2024 8:41 AM [facility] CREATININE, BLOOD 1.45(H) 0.70 - 1.30 mg/dL 06/19/2024 8:41 AM [facility] BUN/CREATININE RATIO 18 12 - 20 ratio 06/19/2024 8:41 AM [facility] TOTAL PROTEIN 7.5 6.3 - 8.2 g/dL 06/19/2024 8:41 AM [facility] ALBUMIN 4.1 3.5 - 5.0 g/dL 06/19/2024 8:41 AM [facility] A/G RATIO 1.2 1.0 - 2.2 06/19/2024 8:41 AM [facility] CALCIUM 9.6 8.7 - 10.5 mg/dL 06/19/2024 8:41 AM PHARMACEUTICAL OPERATOR [facility] T BILI 0.6 0.2 - 1.2 mg/dL 06/19/2024 8:41 AM PHARMACEUTICAL OPERATOR [facility] SGOT (AST) 18 5 - 34 U/L 06/19/2024 8:41 AM PHARMACEUTICAL OPERATOR [facility] SGPT (ALT) 20 0 - 55 U/L 06/19/2024 8:41 AM [facility] ALKALINE PHOSPHATASE 59 40 - 150 U/L 06/19/2024 8:41 AM PHARMACEUTICAL OPERATOR [facility] GFR, ESTIMATED 49(L) >=60 06/19/2024 8:41 AM [facility] Comment: Creatinine Clearance is the preferred criteria for selecting drug dose adjustments in renally impaired patients. The GFR is provided as additional pertinent clinical information. GFR is reported in mL/min/1.73 sq m. Calculation based on the Chronic Kidney Disease Epidemiology Collaboration (CKD- EPI) equation refit without adjustment for race. GFR, EST. 57(L) >=60 024 8:41 AM PHARMACEUTICAL OPERATOR [facility] GFR, EST. NONAFRICAN 47(L) >=60 06/19/2024 8:41 AM [facility] Blood Venipuncture / Unknown 06/19/2024 6:07 AM PHARMACEUTICAL OPERATOR 06/19/2024 8:00 AM PHARMACEUTICAL OPERATOR us Hussein Avitia MD CHEMISTRY ORDERABLES Final Resu lt [facility] [place] [address] documented in this encounter Visit Diagnoses Diagnosis Essential (primary) hypertension Unspecified essential hypertension Mild intellectual disabilities Calculus of lower urinary tract, unspecified Hyperlipidemia, unspecified Type 1 diabetes mellitus with ketoacidosis without coma (HCC) Hormone replacement therapy Encounter for general adult medical examination without abnormal findings Routine general medical examination at a health care facility documented in this encounter Care Teams Auto Clocks Repairer Relationship Specialty [place] [address], [place] [address] PCP - General Family Medicine 10/26/22 Kenyon Cardoso DO Gastroenterology 11/24/15 [place] [address] [place] [address] Endocrinology 11/30/20 documented as of this encounter
--- OUTSIDE RECORDS SUMMARY | 2024-09-18 08:32 | XMS_ITS | Encounter Summary ---
Author Organization [facility] Address [address] [place] [address] Phone Care Team Providers Care Piece Presser Name Role Phone Kenyon Cardoso DO Unavailable [phone] Belem Nova MD Unavailable Provider, Unknown Primary Care Provider Unavaila Kahlil Bell MD Primary Care Provider [phone] Kacy Blackman MD Primary Care Provider Unavailable Encounter Details Date Type Department Care Team (Late st Contact Info) Description 04/13/2022 Lab Requisition [facility] Laboratory Services 1 [place] [address] Kahlil Casas MD [address] [place] [address] [address] [place] [address] Encounter for screening for COVID-19 [...] Associated Diagnosis Comments SARS-COV-2 BY MOLECULAR Routine 04/13/2022 8:22 AM CDT Encounter for screening for COVID-19 documented in this encounter Results * SARS-COV-2 BY MOLECULAR (04/13/2022 8:22 AM CDT) SARSCOV2 NOT DETECTED (Referen ce Range for this test is Not Detected ) [facility] THERMOFISHER FAST DX 04/14/2022 5:43 AM CDT [facility] Comment:This test was perfor med by a RT-PCR method. Other No Phlebotomy Charged / Unknown 04/13/2022 8:22 AM CDT 04/13/2022 10:58 AM CDT Narrative [facility] - 04/14/2022 5:43 AM CDT Authorized Fact Sheets about this test for providers and patients are available at: https://www.fda.gov/medical-devices/tzrvqmpdp-flvkxlkwrn-yshwuhy-devices/emergen cy-us e-authorizations us Kahlil Casas MD MICROBIOLOGY - GENERAL ORDERAB LES Final Result [facility] [address] [place] [address], documented in this encounter Visit Diagnoses Diagnosis Encounter for screening for COVID-19 documented in this encounter Additional Health Concerns Infection Onset Date Last Indicated Resolved Time COVID - 19 03/31/2021 05/18/2022 05/28/2022 12:1 6 AM EXHAUST TENDER COVID - 19 07/06/2022 08/31/2022 09/01/2022 11:3 5 AM EXHAUST TENDER COVID - 19 Confirmed 08/31/2022 08/31/2022 023 12:18 AM CDT documented as of this encounter Care Teams Piece Presser Relationship Specialty Start Date End Date Provider, Unknown UNKNOWN PCP - General 03/31/21 05/17/22 Kahlil Casas MD [address] [place] [address] [address] [place] [address] PCP - General Family Medicine 05/18/22 10/25/22 Kacy Blackman MD [address] [place] [address] PCP - General Family Medicine 10/26/22 Kenyon Cardoso DO Gastroenterology 11/24/15 [place] [address] [place] [address] Endocrinology 11/30/20 documented as of this encounter
--- OUTSIDE RECORDS SUMMARY | 2024-09-18 08:32 | XMS_ITS | Encounter Summary ---
Author Organization [facility] Address [address] [place] [address] Phone Care Team Providers Care Event Specialist Name Role Phone Kenyon Cardoso DO Unavailable [phone] Belem Nova MD Unavailable Provider, Unknown Primary Care Provider Unavaila Kahlil Bell MD Primary Care Provider Kacy Blackman MD Primary Care Provider Unavailable Encounter Details Date Type Department Care Team (Late st Contact Info) Description 02/16/2022 [facility] 1 [place] [address] Kahlil Casas MD [address] [place] [address] [address] [place] [address] Encounter for screening for COVID-19 [...] Associated Diagnosis Comments SARS-COV-2 BY MOLECULAR Routine 02/16/2022 8:02 AM CDT Encounter for screening for COVID-19 documented in this encounter Results * SARS-COV-2 BY MOLECULAR (02/16/2022 8:02 AM CDT) SARSCOV2 NOT DETECTED (Referen ce Range for this test is Not Detected ) [facility] THERMOFISHER FAST DX 02/17/2022 6:46 AM CDT [facility] Comment:This test was perfor med by a RT-PCR method. Other No Phlebotomy Charged / Unknown 02/16/2022 8:02 AM CDT 02/16/2022 10:50 AM CDT Narrative [facility] - 02/17/2022 6:46 AM CDT Authorized Fact Sheets about this test for providers and patients are available at: https://www.fda.gov/medical-devices/jirvbpzcn-netbamiobo-obvwlyr-devices/emergen cy-us e-authorizations us Kahlil Casas MD MICROBIOLOGY - GENERAL ORDERAB LES Final Result [facility] [address] [place] [address], documented in this encounter Visit Diagnoses Diagnosis Encounter for screening for COVID-19 documented in this encounter Additional Health Concerns Infection Onset Date Last Indicated Resolved Time COVID - 19 03/31/2021 05/18/2022 05/28/2022 12:1 6 AM FABRICS AND MATERIAL CUTTER COVID - 19 07/06/2022 08/31/2022 09/01/2022 11:3 5 AM FABRICS AND MATERIAL CUTTER COVID - 19 Confirmed 08/31/2022 08/31/2022 023 12:18 AM CDT documented as of this encounter Care Teams Event Specialist Relationship Specialty Start Date End Date Provider, Unknown UNKNOWN PCP - General 03/31/21 05/17/22 Kahlil Casas MD [address] [place] [address] [address] [place] [address] PCP - General Family Medicine 05/18/22 10/25/22 Kacy Blackman MD [address] [place] [address] PCP - General Family Medicine 10/26/22 Kenyon Cardoso DO Gastroenterology 11/24/15 [place] [address] [place] [address] Endocrinology 11/30/20 documented as of this encounter
--- OUTSIDE RECORDS SUMMARY | 2024-09-18 08:32 | XMS_ITS | Encounter Summary ---
Author Organization [facility] Address [address] [place] [address] Phone Care Team Providers Care Boatbuilder Wood Name Role Phone Kenyon Cardoos DO Unavailable [phone] Belem Nova MD Unavailable Provider, Unknown Primary Care Provider Unavaila Kahlil Bell MD Primary Care Provider Kacy Blackman MD Primary Care Provider Unavailable Encounter Details Date Type Department Care Team (Late st Contact Info) Description 11/10/2021 [facility] 1 [place] [address] Kahlil Casas MD [address] [place] [address] [address] [place] [address] Encounter for screening for COVID-19 [...] Associated Diagnosis Comments SARS-COV-2 BY MOLECULAR Routine 11/10/2021 8:44 AM CDT Encounter for screening for COVID-19 documented in this encounter Results * SARS-COV-2 BY MOLECULAR (11/10/2021 8:44 AM CDT) SARSCOV2 NOT DETECTED (Referen ce Range for this test is Not Detected ) [facility] THERMOFISHER FAST DX 11/10/2021 11:33 PM CDT [facility] Comment:This test was perfor med by a RT-PCR method. Other Non-Phlebotomy Collection / Unknown 11/10/2021 8:44 AM CDT 11/10/2021 11:53 AM CDT [facility]ative [facility] - 11/10/2021 11:33 PM CDT Authorized Fact Sheets about this test for providers and patients are available at: https://www.fda.gov/medical-devices/iianndmlu-owawdwzama-fcttjdw-devices/emergen cy-us e-authorizations us Kahlil Casas MD MICROBIOLOGY - GENERAL ORDERAB LES Final Result [facility] [address] [place] [address], documented in this encounter Visit Diagnoses Diagnosis Encounter for screening for COVID-19 documented in this encounter Additional Health Concerns Infection Onset Date Last Indicated Resolved Time COVID - 19 03/31/2021 05/18/2022 05/28/2022 12:1 6 AM INDUSTRIAL ARTS TEACHER COVID - 19 07/06/2022 08/31/2022 09/01/2022 11:3 5 AM INDUSTRIAL ARTS TEACHER COVID - 19 Confirmed 08/31/2022 08/31/202209/20/ 023 12:18 AM CDT documented as of this encounter Care Teams Boatbuilder Wood Relationship Specialty Start Date End Date Provider, Unknown UNKNOWN PCP - General 03/31/21 05/17/22 Kahlil Casas MD [address] [place] [address] [address] [place] [address] PCP - General Family Medicine 05/18/22 10/25/22 Kacy Blackman MD [address] [facility] [address] [place] [address] PCP - General Family Medicine 10/26/22 Kenyon Cardoso DO Gastroenterology 11/24/15 [place] [address] [place] [address] Endocrinology 11/30/20 documented as of this encounter
--- OUTSIDE RECORDS SUMMARY | 2024-09-18 08:32 | XMS_ITS | Patient Health Summary ---
Author Organization [facility] Address [facility] [place] [address] Care Team Providers Care Managing Supervisor Name Role Phone Unavailable Primary Care Provider Unavailabl e Note from [facility],non-owned Affiliates and Associated Physician Practices is amultiple site organization consisting of ambulatory clinics and hospital sitesin [place], [place], [place] and [place]. This disclosure is being madepursuant to the Care Everywhere program and may not contain all information available regarding this patient. Last updated 18.[facility] Social History Tobacco Use Types Packs/Day Years Used Date Smoking Tobacco: Never Assessed Sex and Gender Information Value Date Recorded Sex Assigned at Not on file Gender Identity Not on file Sexual Orientation Not on file Procedures * SARS-COV-2 (COVID-19) IN HOUSE(Performed 01/17/2020) Results * (ABNORMAL) SARS-COV-2 (COVID-19) IN HOUSE (01/17/2020 12:13 PM CDT) COVID-19 PCR Detected( AA) Not detected, Invalid 01/19/2020 4:16 PM CDT [facility] MICROBIOLOGY Microbiology SPECIMEN FROM NASOPHARYNGEAL STRUCTURE / Unknown Collection / Unknown 01/17/2020 12:13 PM CDT 01/18/2020 2:00 PM CDT Narrative [facility] MICROBIOLOGY - 01/19/2020 4:16 PM CDT This Real Time RT-PCR assay was developed and its performance characteristics determined by [facility]. This test has been authorized by the Food and Drug administration (FDA)under an Emergency Use Authorization (EUA). This test has been validated in accordance with the FDA's guidance document Policy for Diagnostic Testing in Laboratories Certified to perform High Complexity Testing under CLIA prior to Emergency Use Authorization for Coronavirus Disease-2019 during the Public Health Emergency issued on September 07, 2019. FDA independent review of this validation is pending. This test is only authorized for the duration of time the declaration that circumstances exist justifying the authorization of emergency use of in vitro diagnostic tests for detection of SARS-CoV-2 virus and/or diagnosis of COVID-19 infection under section 564(b)(1) of the Act, 21 U.S.C 360bbb-3 (b)(1), unless the authorization is terminated or revoked sooner. Faith Lai MD LAB - MICROBIOLOGY O RDERABLES [facility] MICROBIOLOGY [address] [place] [address], [facility] [phone]
--- OUTSIDE RECORDS SUMMARY | 2024-09-18 08:32 | XMS_ITS | Encounter Summary ---
Author Organization [facility] Address [address] [place] [address] Phone Care Team Providers Care Machinist Wood Name Role Phone Kenyon Cardoso DO Unavailable [phone] Belem Nova MD Unavailable Kahlil Casas MD Primary Care Provider Kacy Blackman MD Primary Care Provider Unavailable Encounter Details Date Type Department Care Team (Late st Contact Info) Description 07/06/2022 Lab Requisition [facility] Laboratory Services [address] [place] [address] Kahlil Casas MD [address] [place] [address] [address] [place] [address] Encounter for screening for COVID-19 [...] Associated Diagnosis Comments SARS-COV-2 BY MOLECULAR Routine 07/06/2022 8:21 AM DIRECTOR TALENT MANAGEMENT Encounter for screening for COVID-19 documented in this encounter Results * SARS-COV-2 BY MOLECULAR (07/06/2022 8:21 AM DIRECTOR TALENT MANAGEMENT) SARSCOV2 NOT DETECTED (Referen ce Range for this test is Not Detected ) [facility] THERMOFISHER FAST DX 07/07/2022 12:33 AM DIRECTOR TALENT MANAGEMENT [facility] Comment:This test was perfor med by a RT-PCR method. Other Non-Phlebotomy Collection / Unknown 07/06/2022 8:21 AM DIRECTOR TALENT MANAGEMENT 07/06/2022 2:27 PM DIRECTOR TALENT MANAGEMENT Narrative [facility] - 07/07/2022 12:33 AM DIRECTOR TALENT MANAGEMENT Authorized Fact Sheets about this test for providers and patients are available at: https://www.fda.gov/medical-devices/wirezuegq-azmjeppxfs-hqdgghf-devices/emergen -us e-authorizations us Kahlil Casas MD MICROBIOLOGY - GENERAL ORDERAB LES Final Result [facility] [address] [place] [address], documented in this encounter Visit Diagnoses Diagnosis Encounter for screening for COVID-19 documented in this encounter Additional Health Concerns Infection Onset Date Last Indicated Resolved Time COVID - 19 07/06/2022 08/31/2022 09/01/2022 11:3 5 AM DIRECTOR TALENT MANAGEMENT COVID - 19 Confirmed 08/31/2022 08/31/202209/20/ 023 12:18 AM CDT documented as of this encounter Care Teams Machinist Wood Relationship Specialty Start Date End Date Kahlil Casas MD [address] [place] [address] [place] [address] PCP - General Family Medicine 05/18/22 10/25/22 Kacy Blackman MD [address] [place] [address] [place] [address] PCP - General Family Medicine 10/26/22 Kenyon Cardoso DO Gastroenterology 11/24/15 [place] [address] [place] [address] Endocrinology 11/30/20 documented as of this encounter
--- OUTSIDE RECORDS SUMMARY | 2024-09-18 08:32 | XMS_ITS | Encounter Summary ---
Author Organization [facility] Address [address] [place] [address] Phone Care Team Providers Care Online Advertising Director Name Role Phone Kenyon Cardoso DO Unavailable [phone] Belem Nova MD Unavailable Provider, Unknown Primary Care Provider Unavaila Kahlil Bell MD Primary Care Provider [phone] Kacy Blackman MD Primary Care Provider Unavailable Encounter Details Date Type Department Care Team (Late st Contact Info) Description 02/02/2022 Lab Requisition [facility] Laboratory Services 1 [place] [address] Kahlil Casas MD [address] [place] [address] [address] [place] [address] Encounter for screening for COVID-19 [...] as of this encounter Plan of Treatment Scheduled Orders Name Type Priority Associated Diagnoses Orde r Schedule SARS-COV-2 BY MOLECULAR Microbiology Routine Encounter for screening for COVID-19 Ordered: 02/02/2022 documented as of this encounter Visit Diagnoses Diagnosis Encounter for screening for COVID-19 documented in this encounter Additional Health Concerns Infection Onset Date Last Indicated Resolved Time COVID - 19 03/31/2021 05/18/2022 05/28/2022 12:1 6 AM SPOOL CARRIER COVID - 19 07/06/2022 08/31/2022 09/01/2022 11:3 5 AM SPOOL CARRIER COVID - 19 Confirmed 08/31/2022 08/31/2022 023 12:18 AM CDT documented as of this encounter Care Teams Online Advertising Director Relationship Specialty Start Date End Date Provider, Unknown UNKNOWN PCP - General 03/31/21 05/17/22 Kahlil Casas MD [address] [facility] [place] [address] PCP - General Family Medicine 05/18/22 10/25/22 Kacy Blackman MD [address] [place] [address] [place] [address] PCP - General Family Medicine 10/26/22 Kenyon Cardoso DO Gastroenterology 11/24/15 [place] [address] [place] [address] Endocrinology 11/30/20 documented as of this encounter
--- OUTSIDE RECORDS SUMMARY | 2024-09-18 08:32 | XMS_ITS | Referral Summary ---
Author Organization [facility] Address [address] [facility] [place] [address] Care Team Providers Care Rice Cleaning Machine Tender Name Role Phone Unavailable Primary Care Provider Unavailabl e Source Comments [facility],non-owned Affiliates and Associated Physician Practices is amultiple site organization consisting of ambulatory clinics and hospital sitesin [place], [place], [place] and [place]. This disclosure is being madepursuant to the Care Everywhere program and may not contain all information available regarding this patient. Last updated 18.[facility] [employer] Social History Tobacco Use Types Packs/Day Years Used Date Smoking Tobacco: Never Assessed Sex and Gender Information Value Date Recorded Sex Assigned at Not on file Gender Identity Not on file Sexual Orientation Not on file Plan of Treatment Not on file
--- OUTSIDE RECORDS SUMMARY | 2024-09-18 08:32 | XMS_ITS | Encounter Summary ---
Author Organization [facility] Address [address] [place] [address] Phone Care Team Providers Care Boat Dock Operator Name Role Phone Kenyon Cardoso DO Unavailable [phone] Belem Nova MD Unavailable Provider, Unknown Primary Care Provider Unavaila Kahlil Bell MD Primary Care Provider Kacy Blackman MD Primary Care Provider Unavailable Encounter Details Date Type Department Care Team (Late st Contact Info) Description 04/14/2021 [facility] 1 [place] [address] Kahlil Casas MD [address] [place] [address] [address] [place] [address] Encounter for screening for COVID-19 [...] Associated Diagnosis Comments SARS-COV-2 BY MOLECULAR Routine 04/14/2021 7:29 AM CDT Encounter for screening for COVID-19 documented in this encounter Results * SARS-COV-2 BY MOLECULAR (04/14/2021 7:29 AM CDT) SARSCOV2 NOT DETECTED (Referen ce Range for this test is Not Detected ) [facility] THERMOFISHER FAST DX 04/15/2021 6:22 AM CDT [facility] Comment:This test was perfor med by a RT-PCR method. Other No Phlebotomy Charged / Unknown 04/14/2021 7:29 AM CDT 04/14/2021 10:39 AM CDT Narrative [facility] - 04/15/2021 6:22 AM CDT Authorized Fact Sheets about this test for providers and patients are available at: https://www.fda.gov/medical-devices/vslpqjqug-qzzzwgifis-tzhihdk-devices/emergen cy-us e-authorizations us Kahlil Casas MD MICROBIOLOGY - GENERAL ORDERAB LES Final Result [facility] [address] [place] [address], documented in this encounter Visit Diagnoses Diagnosis Encounter for screening for COVID-19 documented in this encounter Additional Health Concerns Infection Onset Date Last Indicated Resolved Time COVID - 19 03/31/2021 05/18/2022 05/28/2022 12:1 6 AM TRAVEL RN COVID - 19 07/06/2022 08/31/2022 09/01/2022 11:3 5 AM TRAVEL RN COVID - 19 Confirmed 08/31/2022 08/31/2022 023 12:18 AM CDT documented as of this encounter Care Teams Boat Dock Operator Relationship Specialty Start Date End Date Provider, Unknown UNKNOWN PCP - General 03/31/21 05/17/22 Kahlil Casas MD [address] [place] [address] [address] [place] [address] PCP - General Family Medicine 05/18/22 10/25/22 Kacy Blackman MD [address] [facility] [place] [address] PCP - General Family Medicine 10/26/22 Kenyon Cardoso DO Gastroenterology 11/24/15 [place] [address] [place] [address] Endocrinology 11/30/20 documented as of this encounter
--- OUTSIDE RECORDS SUMMARY | 2024-09-18 08:32 | XMS_ITS | Encounter Summary ---
Author Organization [facility] Address [address] [place] [address] Phone Care Team Providers Care Pastry Decorator Name Role Phone Kenyon Cardoso DO Unavailable [phone] Belem Nova MD Unavailable Provider, Unknown Primary Care Provider Unavaila Kahlil Bell MD Primary Care Provider [phone] Kacy Blackman MD Primary Care Provider Unavailable Encounter Details Date Type Department Care Team (Late st Contact Info) Description 03/23/2022 [facility] 1 [place] [address] Kahlil Casas MD [address] [place] [address] [address] [place] [address] Encounter for screening for COVID-19 [...] Associated Diagnosis Comments SARS-COV-2 BY MOLECULAR Routine 03/23/2022 8:14 AM CDT documented in this encounter Results * SARS-COV-2 BY MOLECULAR (03/23/2022 8:14 AM CDT) SARSCOV2 NOT DETECTED (Referen ce Range for this test is Not Detected ) [facility] THERMOFISHER FAST DX 03/24/2022 3:05 PM CDT [facility] Comment:This test was perfor med by a RT-PCR method. Other Non-Phlebotomy Collection / Unknown 03/23/2022 8:14 AM CDT 03/23/2022 9:42 AM CDT Narrative [facility] - 03/24/2022 3:05 PM CDT Authorized Fact Sheets about this test for providers and patients are available at: https://www.fda.gov/medical-devices/zixudhtgs-pyziacomnw-ragacpq-devices/emergen -us e-authorizations us Kahlil Casas MD MICROBIOLOGY - GENERAL ORDERAB LES Final Result [facility] [address] [place] [address], documented in this encounter Visit Diagnoses Diagnosis Encounter for screening for COVID-19 documented in this encounter Additional Health Concerns Infection Onset Date Last Indicated Resolved Time COVID - 19 03/31/2021 05/18/2022 05/28/2022 12:1 6 AM BATTER OUT COVID - 19 07/06/2022 08/31/2022 09/01/2022 11:3 5 AM BATTER OUT COVID - 19 Confirmed 08/31/2022 08/31/2022 023 12:18 AM CDT documented as of this encounter Care Teams Pastry Decorator Relationship Specialty Start Date End Date Provider, Unknown UNKNOWN PCP - General 03/31/21 05/17/22 Kahlil Casas MD [address] [facility] [address] [place] [address] PCP - General Family Medicine 05/18/22 10/25/22 Kacy Blackman MD [address] [facility] [place] [address] PCP - General Family Medicine 10/26/22 Kenyon Cardoso DO Gastroenterology 11/24/15 [place] [address] [place] [address] Endocrinology 11/30/20 documented as of this encounter
--- OUTSIDE RECORDS SUMMARY | 2024-09-18 08:32 | XMS_ITS | Clinical Summary ---
Author Organization [facility] Address [address] [facility] [place] [address] Care Team Providers Care Watch Dial Stoner Name Role Phone Unavailable Primary Care Provider Unavailabl e Source Comments [facility],non-owned Affiliates and Associated Physician Practices is amultiple site organization consisting of ambulatory clinics and hospital sitesin [place], [place], [place] and [place]. This disclosure is being madepursuant to the Care Everywhere program and may not contain all information available regarding this patient. Last updated 18.[facility] [employer] Social History Tobacco Use Types Packs/Day Years Used Date Smoking Tobacco: Never Assessed Sex and Gender Information Value Date Recorded Sex Assigned at Not on file Gender Identity Not on file Sexual Orientation Not on file Plan of Treatment Health Maintenance Due Date Last Done Comments MEDICARE AWV 12 MONTHS 1944 DTAP/TDAP/TD VACCINES (1 - Tdap) 11/28/1963 PNEUMOCOCCAL VACCINE 50+ (1 of 1 - PCV) 1994 ZOSTER VACCINE (1 of 2) 1994 Respiratory Syncytial Virus (RSV) Vaccine Pt: or over 60 yrs (1 - 1-dose 75+ series) 11/28/2019 COVID-19 VACCINE ( - 2023-2 5 season) 2024 INFLUENZA VACCINE (#1) 2024 DEPRESSION SCREENING 07/10/2024 HEPATITIS B VACCINE Aged Out No longe r eligible based on patient's age to complete this topic HIB VACCINE Aged Out No longer eligi ble based on patient's age to complete this topic HPV VACCINE Aged Out No longer eligi ble based on patient's age to complete this topic MENINGOCOCCAL (Group B) VACC INE SHARED DECISION-MAKING Aged Out No longer eligibl e based on patient's age to complete this topic MENINGOCOCCAL GROUPS A/C/Y/W VACCINE Aged Out No longer eligible b ased on patient's age to complete this topic
--- OUTSIDE RECORDS SUMMARY | 2024-09-18 08:32 | XMS_ITS | Encounter Summary ---
Author Organization [facility] Address [address] [place] [address] Phone Care Team Providers Care Cookie Padder Name Role Phone Kenyon Cardoso DO Unavailable [phone] Belem Nova MD Unavailable Provider, Unknown Primary Care Provider Unavaila Kahlil Bell MD Primary Care Provider [phone] Kacy Blackman MD Primary Care Provider Unavailable Encounter Details Date Type Department Care Team (Late st Contact Info) Description 03/09/2022 [facility] 1 [place] [address] Kahlil Casas MD [address] [place] [address] [address] [place] [address] Encounter for screening for COVID-19 [...] Associated Diagnosis Comments SARS-COV-2 BY MOLECULAR Routine 03/09/2022 8:30 AM CDT Encounter for screening for COVID-19 documented in this encounter Results * SARS-COV-2 BY MOLECULAR (03/09/2022 8:30 AM CDT) SARSCOV2 NOT DETECTED (Referen ce Range for this test is Not Detected ) [facility] THERMOFISHER FAST DX 03/10/2022 6:[address] [facility] Comment:This test was perfor med by a RT-PCR method. Other Non-Phlebotomy Collection / Unknown 03/09/2022 8:30 AM CDT 03/09/2022 11:[address] [facility] - 03/10/2022 6:15 AM CDT Authorized Fact Sheets about this test for providers and patients are available at: https://www.fda.gov/medical-devices/iigribyjy-klsfyuugbj-iwovivj-devices/emergen cy-us e-authorizations us Kahlil Casas MD MICROBIOLOGY - GENERAL ORDERAB LES Final Result [facility] [address] [place] [address], documented in this encounter Visit Diagnoses Diagnosis Encounter for screening for COVID-19 documented in this encounter Additional Health Concerns Infection Onset Date Last Indicated Resolved Time COVID - 19 03/31/2021 05/18/2022 05/28/2022 12:1 6 AM BOTTLE SELECTOR COVID - 19 07/06/2022 08/31/2022 09/01/2022 11:3 5 AM BOTTLE SELECTOR COVID - 19 Confirmed 08/31/2022 08/31/2022 023 12:18 AM CDT documented as of this encounter Care Teams Cookie Padder Relationship Specialty Start Date End Date Provider, Unknown UNKNOWN PCP - General 03/31/21 05/17/22 Kahlil Casas MD [address] [place] [address] [address] [place] [address] PCP - General Family Medicine 05/18/22 10/25/22 Kacy Blackman MD [address] [facility] [address] [place] [address] PCP - General Family Medicine 10/26/22 Kenyon Cardoso DO Gastroenterology 11/24/15 [place] [address] [place] [address] Endocrinology 11/30/20 documented as of this encounter
--- OUTSIDE RECORDS SUMMARY | 2024-09-18 08:32 | XMS_ITS | Encounter Summary ---
Author Organization [facility] Address [address] [place] [address] Phone Care Team Providers Care Corrective And Manual Arts Therapist Name Role Phone Kenyon Cardoso DO Unavailable [phone] Belem Nova MD Unavailable Provider, Unknown Primary Care Provider Unavaila Kahlil Bell MD Primary Care Provider Kacy Blackman MD Primary Care Provider Unavailable Encounter Details Date Type Department Care Team (Late st Contact Info) Description 04/20/2022 Lab Requisition [facility] Laboratory Services 1 [place] [address] Kahlil Casas MD [address] [place] [address] [address] [place] [address] Encounter for screening for COVID-19 [...] Associated Diagnosis Comments SARS-COV-2 BY MOLECULAR Routine 04/20/2022 9:40 AM CDT Encounter for screening for COVID-19 documented in this encounter Results * SARS-COV-2 BY MOLECULAR (04/20/2022 9:40 AM CDT) SARSCOV2 NOT DETECTED (Referen ce Range for this test is Not Detected ) [facility] THERMOFISHER FAST DX 04/21/2022 12:18 AM CDT [facility] Comment:This test was perfor med by a RT-PCR method. Other Non-Phlebotomy Collection / Unknown 04/20/2022 9:40 AM CDT 04/20/2022 8:24 PM CDT Narrative [facility] - 04/21/2022 12:18 AM CDT Authorized Fact Sheets about this test for providers and patients are available at: https://www.fda.gov/medical-devices/zjsjtanrv-oetkegbymu-tszhive-devices/emergen cy-us e-authorizations us Kahlil Casas MD MICROBIOLOGY - GENERAL ORDERAB LES Final Result [facility] [address] [place] [address], documented in this encounter Visit Diagnoses Diagnosis Encounter for screening for COVID-19 documented in this encounter Additional Health Concerns Infection Onset Date Last Indicated Resolved Time COVID - 19 03/31/2021 05/18/2022 05/28/2022 12:1 6 AM 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 MAKER 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 COVID - 19 07/06/2022 08/31/2022 09/01/2022 11:3 5 AM CENTER MAKER HAND COVID - 19 Confirmed 08/31/2022 08/31/202209/20/ 023 12:18 AM CDT documented as of this encounter Care Teams Corrective And Manual Arts Therapist Relationship Specialty Start Date End Date Provider, Unknown UNKNOWN PCP - General 03/31/21 05/17/22 Kahlil Casas MD [address] [place] [address] [address] [place] [address] PCP - General Family Medicine 05/18/22 10/25/22 Kacy Blackman MD [address] [facility] [address] [place] [address] PCP - General Family Medicine 10/26/22 Kenyon Cardoso DO Gastroenterology 11/24/15 [place] [address] [place] [address] Endocrinology 11/30/20 documented as of this encounter
--- OUTSIDE RECORDS SUMMARY | 2024-09-18 08:32 | XMS_ITS | Referral Summary ---
Author Organization [facility] Physician Office Building 1 Address [address] [place] [address] Care Team Providers Care Copy Chaser Name Role Phone Abbi Monique NP Unavailable Desmond Grubbs MD Primary Care Provider + Encounters Date Type Department Care Team Description 08/19/2024 9:00 AM CRYPTOLOGIC SUPPORT SPECIALIST Office Visit [facility] Medical [facility] Primary Care at [address] [place] [address] Desmond Grubbs MD Need for hepatitis B screening test (Primary Dx); Annual physical exam; Type 2 diabetes mellitus with hyperglycemia, without long-term current use of insulin (HCC); Hyperlipidemia associated with type 2 diabetes mellitus (HCC); Hypertension associated with type 2 diabetes mellitus (HCC); Hypertension associated with stage 3a chronic kidney disease due to type 2 diabetes mellitus (HCC); Longstanding persistent atrial fibrillation (HCC); On continuous oral anticoagulation; Gastroesophageal reflux disease with esophagitis without hemorrhage 07/30/2024 ACO Quality [facility] Accountable Care Organization [address] [place] [id number] Ju Soto 07/25/2024 Telephone [facility] Medical [facility] Primary Care at [address] [place] [address] Quita Zapien NP Medical Records Request 06/27/2024 11:38 AM CRYPTOLOGIC SUPPORT SPECIALIST - 06/27/2024 11:59 PM CRYPTOLOGIC SUPPORT SPECIALIST Hospital Encounter [facility] [address] [place] [address] Type 2 diabetes mellitus with hyperglycemia, without long-term current use of insulin (HCC) Discharge Disposition: Discharge to home or self care 06/27/2024 10:45 AM CRYPTOLOGIC SUPPORT SPECIALIST Office Visit [facility] [address], [place] [address] Belem Nova MD Type 2 diabetes mellitus with hyperglycemia, without long-term current use of insulin (HCC) (Primary Dx); Hyperlipidemia associated with type 2 diabetes mellitus (HCC); Hypertension associated with type 2 diabetes mellitus (HCC) from Last 3 Months Allergies No known active allergies Medications diphenhydrAMINE (diphenhydrAMINE) 25 mg capsule take 2 capsule by oral route every 4 - 6 hours as needed 0 0 6 Active Lactobacillus acidophilus (PROBIOTIC ORAL) Take 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 Active clotrimazole 1 % cream 3 Active apixaban (ELIQUIS) 5 mg tablet Take 1 tablet (5 mg total) by mouth 2 (two) times a day 60 tablet 11 4 Active amLODIPine (NORVASC) 10 mg tabletIndications :hypertension Take 1 tablet (10 mg total) by mouth daily 90 tablet 3 4 Active glimepiride (AMARYL) 2 mg tabletIndications :Hyperlipidemia associated with type 2 diabetes mellitus (HCC) Take 1 tablet (2 mg total) by mouth daily before breakfast 90 tablet 3 4 Active losartan-hydrochl orothiazide (HYZAAR) 100-25 mg per tabletIndications :Essential hypertension Take 1 tablet by mouth daily 90 tablet 3 4 Active lovastatin (MEVACOR) 10 mg tabletIndications :Essential hypertension Take 1 tablet (10 mg total) by mouth nightly 90 tablet 3 4 Active metoprolol XL (TOPROL-XL) 100 mg 24 hr tabletIndications :Essential hypertension Take 1 tablet (100 mg total) by mouth daily 90 tablet 3 4 Active omeprazole (PriLOSEC) 20 mg capsuleIndication s:Treatment of Non-Bleeding Gastric Disorder Take 1 capsule (20 mg total) by mouth daily 90 capsule 3 4 Active Tradjenta 5 mg tabletIndications :Type 2 diabetes mellitus with hyperglycemia, without long-term current use of insulin (HCC) Take 1 tablet (5 mg total) by mouth daily 90 tablet 3 4 Active blood glucose diagnostic stripIndications: Type 2 diabetes mellitus with hyperglycemia, without long-term current use of insulin (HCC) 100 each by other route every morning Accu-chek test strips 100 strip 11 4 Active aspirin 81 mg chewable tabletIndications :prevention of thrombosis Take 1 tablet (81 mg total) by mouth daily 90 tablet 3 4 Active metFORMIN (GLUCOPHAGE) 1,000 mg tablet Take 1 tablet (1,000 mg total) by mouth 2 (two) times a day At 7am and 4pm Active polycarbophil (FIBERCON) 625 mg tabletIndications :constipation Take 2 tablets (1,250 mg total) by mouth daily 60 tablet 11 4 01/03/20 25 Active acetaminophen (TYLENOL) 325 mg tabletIndications :Arthritic Pain,Fever,Headac he Disorder Take 2 tablets (650 mg total) by mouth every 4 (four) hours as needed for pain 90 tablet 3 4 Active Probiotic Blend 2 billion cell-50 mg capsule 5 Active Active Problems Problem Noted Date Diagnosed Date Hypertension associated with stage 3a chronic kidney disease due to type 2 diabetes mellitus 08/19/2024 Other thrombophilia 12/29/2023 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 Continue current regimen including losartan. Update microalbumin Assessment & Plan (12/15/2023 9:37 AM CDT): Chronic problem. Controlled on current Losartan-HCTZ 100-25mg daily, metoprolol XL 100mg daily, amlodipine 10mg daily Assessment & Plan (06/14/2023 9:38 AM CRYPTOLOGIC SUPPORT SPECIALIST): Chronic problem. Controlled on current Losartan-HCTZ 100-25mg daily, metoprolol XL 100mg daily, amlodipine 10mg daily Medicare annual wellness visit, subsequent 06/09 Assessment & Plan (06/09/2023 1:21 PM CRYPTOLOGIC SUPPORT SPECIALIST): Annual Medicare wellness exam completed today. All questionnaires completed and reviewed with patient. No Concerns. BMI:28.03 Dietary and exercise recommendations given Routine screening labs reviewed Preventative screening ordered:N/A Routine vaccines given: Medications refilled Referrals placed prn On continuous oral anticoagulation 09/12/2022 Longstanding persistent atrial fibrillation 12/2022 Atrial fibrillation 08/30/2022 Assessment & Plan (12/31/2023 6:01 PM CDT): - paroxysmal, asymptomatic at this - continues on Eliquis 5 mg b.i.d. plus ASA 81 mg daily - followed by Cardiology Assessment & Plan (06/09/2023 1:21 PM CRYPTOLOGIC SUPPORT SPECIALIST): Chronic and stable. Will continue all current medications. Will continue to follow-up with cardiology as instructed Assessment & Plan (12/07/2022 11:52 AM CDT): Chronic and stable. Will continue all current medications. Will continue to follow-up with cardiology as instructed Assessment & Plan (08/30/2022 1:06 PM CRYPTOLOGIC SUPPORT SPECIALIST): Incidental finding on EKG. ?longstanding vs new onset. Patient currently on metoprolol, will continue. CHADs2 score 4. Will recommend starting Eliquis 2.5mg BID given renal function. Risks/benefits and alternatives discussed. Can discuss with medical [id number] if agrees to start medication. Patient has cardiology eval scheduled in 2 weeks. Will reviewed notes for recommendation Essential hypertension 04/19/2022 Assessment & Plan (12/31/2023 5:57 PM CDT): - chronic, stable at goal of < 140/90 - continue amlodipine 10 mg daily, losartan- HCTZ 100/25 mg daily, plus metoprolol XL 100 mg daily Assessment & Plan (06/09/2023 1:22 PM CRYPTOLOGIC SUPPORT SPECIALIST): Chronic and stable. At Goal <130/80. Continue current medication. Will Continue to monitor Assessment & Plan (12/07/2022 11:53 AM CDT): Chronic and stable. At Goal <130/80. Continue current medication. Will Continue to monitor Assessment & Plan (08/30/2022 1:04 PM CRYPTOLOGIC SUPPORT SPECIALIST): Chronic and stable. At Goal <130/80. Continue current medication. Will Continue to monitor Assessment & Plan (04/19/2022 2:08 PM CDT): Chronic and stable. Continue current medication. Will Continue to monitor Stage 3a chronic kidney disease 04/19/2022 Assessment & Plan (12/31/2023 6:00 PM CDT): - chronic, associated with nephropathy and hypertension - most recent EGFR of 53 - check metabolic panel and uACR prior to annual visit in June - on ACEI - stay hydrated, avoid NSAIDs Assessment & Plan (06/14/2023 9:38 AM CRYPTOLOGIC SUPPORT SPECIALIST): Chronic, stable problem. Remains CKD 3a. Last creat/GFR: 03/22/23 GFR=49, CR=1.4. Aware to avoid NSAIDs & stay well hydrated. Assessment & Plan (06/09/2023 1:22 PM CRYPTOLOGIC SUPPORT SPECIALIST): Chronic and stable. Reviewed lab results for the past year. Stage IIIA. Medication list reviewed. Avoid NSAIDS. Will continue to monitor with routine labs and refer to Nephrology if GFR decreases to < 40. Assessment & Plan (04/19/2022 2:10 PM CDT): Chronic and stable. Reviewed lab results for the past year. Stage IIIA. Medication list reviewed. Avoid NSAIDS. Will continue to monitor with routine labs and referred to Nephrology if GFR decreases to < 40. Vitamin deficiency, unspecified 05/15/2019 Mild intellectual disability 11/14/2018 Hyperlipidemia associated with type 2 diabetes pepito francis 11/08/2017 Assessment & Plan (06/27/2024 10:57 AM CRYPTOLOGIC SUPPORT SPECIALIST): Chronic, stable. Continue statin therapy with lovastatin Assessment & Plan (12/15/2023 9:37 AM CDT): Chronic problem. Controlled on current Lovastatin 10mg. Last lipid panel: 06/22/23 LDL=77, TG=61. Assessment & Plan (06/14/2023 9:37 AM CRYPTOLOGIC SUPPORT SPECIALIST): Chronic problem. Controlled on current Lovastatin 10mg. Last lipid panel: 03/22/23 LDL=76, TG=60. Assessment & Plan (06/09/2023 1:22 PM CRYPTOLOGIC SUPPORT SPECIALIST): Chronic and stable. Continue current medication. Will continue to monitor Assessment & Plan (12/07/2022 11:53 AM CDT): Chronic and stable. Continue current medication. Will continue to monitor Assessment & Plan (04/12/2022 11:08 AM CDT): Chronic problem. On statin therapy, no changes. Assessment & Plan (09/01/2021 10:48 AM CRYPTOLOGIC SUPPORT SPECIALIST): Chronic problem. On statin therapy, no changes. Assessment & Plan (11/25/2020 10:15 AM CDT): Goal of treatment , LDL cholesterol less than 100 ( less than 70 in patients with history of heart attacks and / or strokes ) NonHDL cholesterol ( total cholesterol minus HDL cholesterol ) goal less than 130 ( less than 100 in patients with history of heart attacks and / or strokes ) Low cholesterol, low fat diet was discussed and advised. Daily exercise On statin therapy with Mevacor Assessment & Plan (05/25/2020 11:50 AM CRYPTOLOGIC SUPPORT SPECIALIST): Goal of treatment , LDL cholesterol less than 100 ( less than 70 in patients with history of heart attacks and / or strokes ) NonHDL cholesterol ( total cholesterol minus HDL cholesterol ) goal less than 130 ( less than 100 in patients with history of heart attacks and / or strokes ) Low cholesterol, low fat diet was discussed and advised. Daily exercise On statin therapy Lipids checked today Assessment & Plan (03/25/2019 10:38 AM CDT): Goal of treatment , LDL cholesterol less than 100 ( less than 70 in patients with history of heart attacks and / or strokes ) NonHDL cholesterol ( total cholesterol minus HDL cholesterol ) goal less than 130 ( less than 100 in patients with history of heart attacks and / or strokes ) Low cholesterol, low fat diet was discussed and advised. Daily exercise On statin therapy Assessment & Plan (12/24/2018 2:07 PM CDT): LDL at goal. Continue statin Assessment & Plan (09/19/2018 2:55 PM CDT): At goal on current medications. Assessment & Plan (06/20/2018 11:37 AM CRYPTOLOGIC SUPPORT SPECIALIST): Goal of treatment , LDL cholesterol less than 100 ( less than 70 in patients with history of heart attacks and / or strokes ) NonHDL cholesterol ( total cholesterol minus HDL cholesterol ) goal less than 130 ( less than 100 in patients with history of heart attacks and / or strokes ) Low cholesterol, low fat diet was discussed and advised. Daily exercise On statin therapy Assessment & Plan (03/13/2018 11:26 AM CDT): At goal on current medications. Assessment & Plan (11/08/2017 10:24 AM CDT): Goal of treatment , LDL cholesterol less than 100 ( less than 70 in patients with history of heart attacks and / or strokes ) NonHDL cholesterol ( total cholesterol minus HDL cholesterol ) goal less than 130 ( less than 100 in patients with history of heart attacks and / or strokes ) Low cholesterol, low fat diet was discussed and advised. Daily exercise On statin therapy Type 2 diabetes mellitus wit h hyperglycemia, without long-term current use of insulin 01/23/2017 Assessment & Plan (06/27/2024 10:57 AM CRYPTOLOGIC SUPPORT SPECIALIST): Chronic, stable. Continue current regimen including metformin, glimepiride and Tradjenta Advise on cutting down on calorie intake Assessment & Plan (12/31/2023 5:55 PM CDT): - chronic, stable with most recent hemoglobin A1c is 6.5% - continues on glimepiride 2 mg b.i.d., metformin 1000 mg b.i.d., and Tradjenta 5 mg daily - managed by endocrinology - continue yearly dilated funduscopic exams - monitor feet closely for skin breakdown calluses Assessment & Plan (12/15/2023 9:53 AM CDT): Chronic problem. A1c stable at 6.5%. reviewed BG log & recent labs (see scanned media). Current medications: Metformin 1000mg twice daily with meals Glimepiride 2mg before breakfast Tradjenta 5mg daily UTD on labs UTD on DM eye exam (01/2023). Strive for regular exercise (30min most days) and diet (get at least 4-5 servings of fruit and veggies daily, avoid processed foods, increase lean protein intake and decrease carb portions as well as fruit juices, regular soda & desserts). Watch carbs and simple sugars. Check the blood sugar daily. Check the feet daily for skin breakdown and infection. Assessment & Plan (06/14/2023 10:03 AM CRYPTOLOGIC SUPPORT SPECIALIST): Chronic problem. A1c stable at 6.6%. Current medications: Metformin 1000mg twice daily with meals Glimepiride 2mg before breakfast Tradjenta 5mg daily UTD on labs UTD on DM eye exam (01/2023). Strive for regular exercise (30min most days) and diet (get at least 4-5 servings of fruit and veggies daily, avoid processed foods, increase lean protein intake and decrease carb portions as well as fruit juices, regular soda & desserts). Watch carbs and simple sugars. Check the blood sugar daily. Check the feet daily for skin breakdown and infection. Assessment & Plan (06/09/2023 1:24 PM CRYPTOLOGIC SUPPORT SPECIALIST): Dm type 2 with (chronic nephropathy) Recent A1C 6.6 05/2023. Saw podiatry 04/2023 Continue low carb diet. Next A1C -12/2022 Most recent Microalbumin - reviewed 05/2023 Dilated retinal eye exam - 01/2023 BP at goal <130/80 on ACEI - Continue Vaccines - Flu, COVID, RSV recommended Assessment & Plan (12/07/2022 11:54 AM CDT): Dm type 2 with (nephropathy) Recent A1C 6.7 09/2021. No Neuropathy on foot exam 06/2022 Continue low carb diet. Discussed with patient and note sent to [employer]. Next A1C -12/2022 Most recent Microalbumin - Due ordered. Dilated retinal eye exam - ?Up to date. Referral placed BP at goal <130/80 on ACEI - Continue Vaccines - PCV, Flu, COVID current on all Assessment & Plan (08/30/2022 1:03 PM CRYPTOLOGIC SUPPORT SPECIALIST): Dm type 2 with (nephropathy) Recent A1C 6.7 06/2022. No Neuropathy on foot exam Continue low carb diet. Discussed with patient and note sent to [employer]. Next A1C -09/2022 Most recent Microalbumin - Due ordered. Dilated retinal eye exam - ?Up to date. Records requested BP at goal <130/80 on ACEI - Continue Vaccines - PCV, Flu, COVID current on all Assessment & Plan (04/19/2022 2:18 PM CDT): Dm type 2 with (nephropathy) Recent A1C 8.1. No Neuropathy on foot exam Continue low carb diet. Discussed with patient and note sent to [employer]. Next A1C - 3 months Most recent Microalbumin - Due will obtain at 3 month f/u Continue current medications. Increase Glimepiride 2mg daily. Advised to take with breakfast. Risks/benefits and alternatives discussed Dilated retinal eye exam - ?Up to date. Records requested BP at goal <130/80 on ACEI - Continue Vaccines - PCV, Flu, COVID current on all Assessment & Plan (04/12/2022 11:24 AM CDT): Chronic problem, deteriorating although A1c is reasonable given his age. They will continue to monitor readings and let us know if any issues. On labs they brought with them today, GFR was 45 (historically has been in high 50s). They do labs q 3 months at his facility. Wrote orders for them to copy us on next set of labs, if GFR continues to decline over time will need to adjust metformin/ Onglyza Update MA/Cr today. Assessment & Plan (09/01/2021 11:08 AM CRYPTOLOGIC SUPPORT SPECIALIST): Chronic problem, trending low normal in the morning. Stop glimepiride. Will check on labs at the facility and send orders if he hasn't done any in the past year (states he usually gets them monthly). Assessment & Plan (11/25/2020 10:14 AM CDT): Hba1c was Lab Results Component Value Date HGBA1C 6.2 11/25/2020 today, indicating adequate DM control Goals blood sugars of 120-160 and Hba1c under 7 % was explained. 1800 calorie, consistent carb diet recommended, no more than 3-45 grams of carbs per meal, avoiding concentrated sweet drinks and rapid absorption carbs. 25-45 min daily aerobic and resistance exercise recommended Prevention and treatment of hyypoglcyemia discussed. Blood glucose monitoring with fingers sticks. Assessment & Plan (05/25/2020 11:49 AM CRYPTOLOGIC SUPPORT SPECIALIST): Hba1c was Lab Results Component Value Date HGBA1C 6.5 05/25/2020 today, indicating adequate DM control Goals blood sugars of 120-160 and Hba1c under 7 % was explained. 1800 calorie, consistent carb diet recommended, no more than 3-45 grams of carbs per meal, avoiding concentrated sweet drinks and rapid absorption carbs. 25-45 min daily aerobic and resistance exercise recommended Prevention and treatment of hyypoglcyemia discussed. Blood glucose monitoring with fingers sticks. Continue current meds Needs eye exam Assessment & Plan (03/25/2019 10:37 AM CDT): Hba1c was Lab Results Component Value Date HGBA1C 6.1 12/24/2018 today, indicating adequate DM control 1800 calorie, consistent carb diet recommended, no more than 3-45 grams of carbs per meal, avoiding concentrated sweet drinks and rapid absorption carbs. 25-45 min daily aerobic and resistance exercise recommended Prevention and treatment of hyypoglcyemia discussed. Blood glucose monitoring with fingers sticks 1 x day, different times of the day Medications: Lower Glimepiride to 1 mg daily Stay on Metformin and Onglyza Assessment & Plan (12/24/2018 2:10 PM CDT): A1c 6.1. Continue metformin and Onglyza. Assessment & Plan (09/19/2018 2:54 PM CDT): A1c is good at 6.5 without any hypoglycemia. He is asking about CGM however without insulin, medicare will not cover, Continue to check BG at least once daily rotating ac times. Assessment & Plan (06/20/2018 11:37 AM CRYPTOLOGIC SUPPORT SPECIALIST): Hba1c was Lab Results Component Value Date HGBA1C 8.6 06/20/2018 today, indicating inadequate DM control 1800 calorie, consistent carb diet recommended 25-45 min daily aerobic and resistance exercise recommended Prevention and treatment of hyypoglcyemia discussed. Blood glucose monitoring with fingers sticks 1-2 x day . Oral medications: continue Onglyza, Metformin Start Glimepiride, 2 mg daily Prescription was sent to the pharmacy. Assessment & Plan (03/13/2018 11:26 AM CDT): Recent A1c slightly more elevated than previously but acceptable. No change to current medication. If A1c continues to increase, will consider adding NICKERSON at reduced dose. Appetite fine, does not skip meals. Assessment & Plan (11/08/2017 10:20 AM CDT): Your Hba1c today was: Lab Results Component Value Date HGBA1C 6.1 11/08/2017 meaning a 3 month average sugar of : 117 Your goal hba1c is under 7.0 to prevent half-way diabetes complications ( eye , kidney and nerve damage ) . Your goal sugars are in the 90-130 range Daily aerobic ( walking, riding a bike, swimming ) and resistance exercises ( light weight lifting, resistance band stretching ) for at least 30 minutes is recommended If you can not walk, chair exercises is very acceptable. As little as 15-20 minutes exercise , in one or two sessions a day, is still very helpful and will help to improve your diabetes control . Eat small portion meals, no more than 1800 calories Diet Try to eat not more than than 2-3 servings of carbs ( starches ) wiith your meals. Avoid soft drinks, including regular sodas , fruit juices and sweetened tea. Drink water instead. Eat plenty of green and leafy vegetables, including salads. Take your medications regularly,including your insulin injections. Blood glucose monitoring once day Bring your sugar meter and /or a log book or log sheet to every office visit. Stop Glipizide Stay on Metformin and Onglyza Assessment & Plan (05/10/2017 11:47 AM CDT): Lower glucotrol to 2.5 mg daily Assessment & Plan (01/23/2017 10:26 AM CDT): A1c 5.7 without lows. Continue same medications. Hyperlipidemia 01/23/2017 Assessment & Plan (12/31/2023 5:56 PM CDT): - chronic, controlled with most recent LDL 77 - continue lovastatin 10 mg nightly - continue ASA 81 mg daily Assessment & Plan (08/30/2022 1:04 PM CRYPTOLOGIC SUPPORT SPECIALIST): Chronic and stable. Labs reviewed and within normal limits. Continue current medication. Repeat labs 09/2022 Assessment & Plan (04/19/2022 2:08 PM CDT): Chronic and stable. Labs reviewed and within normal limits. Continue current medication. Assessment & Plan (05/10/2017 11:48 AM CDT): Goal of treatment , LDL cholesterol less than 100 ( less than 70 in patients with history of heart attacks and / or strokes ) NonHDL cholesterol goal less than 130 ( less than 100 in patients with history of heart attacks and / or strokes ) Continue statin therapy Assessment & Plan (01/23/2017 10:27 AM CDT): Will check labs. Resolved Problems Problem Noted Date Diagnosed Date Resolved Date Hypertension associated with diabetes 01/23/2017 04/19/2022 Assessment & Plan (04/12/2022 11:08 AM CDT): Controlled on current medications, no changes. Assessment & Plan (09/01/2021 10:48 AM CRYPTOLOGIC SUPPORT SPECIALIST): Controlled on current medications, no changes. Assessment & Plan (11/25/2020 10:15 AM CDT): Goal blood pressure is less than 140/85 Low salt diet was discussed andd recommended The importance of daily aerobic exercise was also emphasized. Continue current meds, including ALISHA-I or ARB, e.g. losartan Assessment & Plan (05/25/2020 11:50 AM CRYPTOLOGIC SUPPORT SPECIALIST): Goal blood pressure is less than 140/85 Low salt diet was discussed andd recommended The importance of daily aerobic exercise was also emphasized. Continue current meds, including ALISHA-I or ARB, e.g. Check microalbumin Assessment & Plan (03/25/2019 10:37 AM CDT): Goal blood pressure is less than 140/85 Low salt diet recommended Daily aerobic exercise Continue current meds, including ALISHA-I or ARB Check microalbumin Assessment & Plan (12/24/2018 2:07 PM CDT): Controlled on current medications. Assessment & Plan (09/19/2018 2:55 PM CDT): Controlled on current medications. Assessment & Plan (06/20/2018 11:37 AM CRYPTOLOGIC SUPPORT SPECIALIST): Goal blood pressure is less than 140/85 Low salt diet recommended Daily aerobic exercise Continue current meds, including ALISHA-I or ARB Assessment & Plan (03/13/2018 11:27 AM CDT): Controlled on current medications. Assessment & Plan (11/08/2017 10:23 AM CDT): Goal blood pressure is less than 140/85 Low salt diet recommended Daily aerobic exercise Assessment & Plan (05/10/2017 11:48 AM CDT): Goal blood pressure is less than 140/85 Low salt diet recommended Daily aerobic exercise Continue current meds, including ALISHA-I or ARB Assessment & Plan (01/23/2017 10:26 AM CDT): Controlled on current medications. Immunizations Immunization Administration Dates Next Due Influenza, Quadrivalent, Spl it, Preservative Free, Intramuscular 05/11/2020 Influenza, Trivalent, IM (MDV) 04/22/2017,2015,05/26/2011 Influenza, Unspecified 08/19/2024(Deferr ed: Other - Patient received flu shot at [facility]),05/26/2011 PPD TEST 10/17/2011 Vsnap Sars-Cov-2 Bivalent V accination (12+ YRS) 04/07/2022 Pneumococcal Polysaccharide PPV23 03/03/2011 Tdap 01/29/2022,05/26/2011 ZOSTER Recombinant 12/13/2021 Social History Tobacco Use Types Packs/Day Years Used Date Smoking Tobacco: Never Smokeless Tobacco: Never Tobacco Cessation:Counseling Given: Not Answered Alcohol Use Standard Drinks/Week Comments No 0 (1 standard drink = 0.6 oz pur e alcohol) PHQ-2 Answer Date Recorded PHQ-2 Total Score (If total score is 3 or more points, staff should administer the PHQ-9) 0 08/19/2024 Sex and Gender Information Value Date Recorded Sex Assigned at Not on file Legal Sex Male 2:47 PM CRYPTOLOGIC SUPPORT SPECIALIST Gender Identity Not on file Sexual Orientation Not on file Last Filed Vital Signs Vital Sign Reading Time Taken Comments Blood Pressure 132/56 08/19/2024 9:05 AM CRYPTOLOGIC SUPPORT SPECIALIST Pulse 72 08/19/2024 9:05 AM CRYPTOLOGIC SUPPORT SPECIALIST Temperature 36.6 C (97.8 F) 08/19/2024 9:05 AM CRYPTOLOGIC SUPPORT SPECIALIST Respiratory Rate 17 06/27/2024 10:16 AM CRYPTOLOGIC SUPPORT SPECIALIST Oxygen Saturation 97% 08/19/2024 9:05 AM CRYPTOLOGIC SUPPORT SPECIALIST Inhaled Oxygen Concentration - - Weight 80.8 kg (178 lb 3.2 oz) 08/19/2024 9:05 A M CRYPTOLOGIC SUPPORT SPECIALIST Height 172.7 cm (5' 8 ) 08/19/2024 9:05 AM CRYPTOLOGIC SUPPORT SPECIALIST Body Mass Index 27.1 08/19/2024 9:05 AM CRYPTOLOGIC SUPPORT SPECIALIST Plan of Treatment Not on file Procedures Procedure Name Priority Date/Time Associated Diagnosis Comments POCT GLUCOSE Routine 06/27/2024 10:17 AM CRYPTOLOGIC SUPPORT SPECIALIST Type 2 diabetes mellitus with hyperglycemia, without long-term current use of insulin (HCC) POCT HEMOGLOBIN A1C Routine 06/27/2024 1 0:17 AM CRYPTOLOGIC SUPPORT SPECIALIST Type 2 diabetes mellitus with hyperglycemia, without long-term current use of insulin (HCC) ALBUMIN CREATININE RATIO, URINE Routine 06/27/2024 10:00 AM CRYPTOLOGIC SUPPORT SPECIALIST Type 2 diabetes mellitus with hyperglycemia, without long-term current use of insulin (HCC) HM DIABETES EYE EXAM Routine 04/16/2024 9:07 AM CDT COMPREHENSIVE METABOLIC PANEL Routine 09/20/2023 8:15 AM CDT LIPID PANEL Routine 09/20/2023 8:15 AM CDT HEPATITIS C ANTIBODY Routine 12/07/2022 12:02 PM CDT Type 2 diabetes mellitus with hyperglycemia, without long-term current use of insulin (HCC) from Last 3 Months or Most Recently Relevant to Health Maintenance Results * (ABNORMAL) POCT hemoglobin A1c (06/27/2024 10:17 AM CRYPTOLOGIC SUPPORT SPECIALIST) Hemoglobin A1C, POC 6.9 4.0 - 5.6 % Comment:None Capillary blood 06/27/2024 1 0:17 AM CRYPTOLOGIC SUPPORT SPECIALIST us Belem Nova MD POINT OF CARE TEST ORDERABLES Fi nal Result * (ABNORMAL) POCT glucose (06/27/2024 10:17 AM CRYPTOLOGIC SUPPORT SPECIALIST) Glucose Blood, POC 198 mg/dL Comment:None Blood 06/27/2024 10:1 7 AM CRYPTOLOGIC SUPPORT SPECIALIST us Belem Nova MD POINT OF CARE TEST ORDERABLES Fi nal Result * Albumin Creatinine Ratio, Urine (06/27/2024 10:00 AM CRYPTOLOGIC SUPPORT SPECIALIST) Albumin Ur <12.0 mg/L Comment: Interpretive Data No reference range established. Current interpretive data was last revised 2018. Creatinine Ur 103.3 mg/dL [facility] Comment: Interpretive Data No reference range established. Current interpretive data was last revised 2018. Albumin Creatinine Ratio, Ur <12 1 - 29 mg/g [facility] Urine 06/27/2024 10:0 0 AM CRYPTOLOGIC SUPPORT SPECIALIST 06/27/2024 2:41 PM CRYPTOLOGIC SUPPORT SPECIALIST Belem Nova MD LAB URINE ORDERABLES Final Resul t [facility] [id number] Department [place] [address] * DIABETES EYE EXAM (04/16/2024 9:07 AM CDT) Historical Provider HEALTH MAINTENANCE Final Result * Lipid panel (09/20/2023 8:15 AM CDT) SCRIBED Cholesterol, Total 137 <200 - NA EXTERNAL LAB SCRIBED HDL 50 >40 - NA EXTERNAL LAB SCRIBED LDL 77 <100 - NA EXTERNAL LAB SCRIBED Triglycerides 50 <150 - NA EXTERNAL LAB Blood 09/20/2023 8:15 AM CDT Historical Provider LAB BLOOD ORDERABLES Edit ed Result - Final EXTERNAL LAB * (ABNORMAL) Comprehensive metabolic panel (09/20/2023 8:15 AM CDT) SCRIBED Sodium 139 136 - 145 mmol/L EXTERNAL LAB SCRIBED Potassium 4.2 3.5 - 5.3 mmol/L EXTERNAL LAB SCRIBED Chloride 102 98 - 110 mmol/L EXTERNAL LAB SCRIBED Carbon Dioxide 26 21 - 33 mmol/L EXTERNAL LAB SCRIBED Urea Nitrogen (BUN) 23 7 - 25 mg/dl EXTERNAL LAB SCRIBED Creatinine 1.5(A) 0.7 - 1.3 mg/dl EXTERNAL LAB SCRIBED Glucose 136(A) 65 - 99 mg/dl EXTERNAL LAB SCRIBED Calcium 9.1 8.6 - 10.3 mg/dl EXTERNAL LAB SCRIBED Bilirubin 0.6 0.2 - 1.2 mg/dl EXTERNAL LAB SCRIBED Plasma Protein 6.9 6.0 - 8.3 g/dl EXTERNAL LAB SCRIBED Albumin 4.0 3.5 - 5.5 g/dl EXTERNAL LAB SCRIBED Alkaline Phosphatase 54 34 - 136 Units/L EXTERNAL LAB SCRIBED Alanine Transaminase (ALT) 14 4 - 55 Units/L EXTERNAL LAB SCRIBED Aspartate Transaminase (AST) 15 4 - 40 Units/L EXTERNAL LAB SCRIBED eGFR in 55 >60 - NA EXTERNAL LAB SCRIBED eGFR in NonAfrican Nepalese 45 >60 - NA EXTERNAL LAB Blood 09/20/2023 8:15 AM CDT Historical Provider LAB BLOOD ORDERABLES Edit ed Result - Final EXTERNAL LAB * Hepatitis C antibody (12/07/2022 12:02 PM CDT) Hep C Ab Nonreactive Nonreactive [facility] Comment: Interpretive Data Nonreactive: Antibodies to HCV not detected. Does NOT exclude the possibility of recent exposure to HCV. Equivocal: Equivocal for HCV antibodies. Supplemental molecular testing will be automatically performed to determine infection status in accordance with current CDC screening recommendations. Reactive: Positive for HCV antibodies. This may represent current or past HCV infection. Supplemental molecular testing will be automatically performed to determine current infection status in accordance with current CDC screening recommendations. Interpretive data was last revised on 2019. Blood 12/07/2022 12:0 2 PM CDT 12/07/2022 6:07 PM CDT Kacy Blackman MD LAB MICROBIOLOGY - GENERAL O RDERABLES Edited Result - Final [facility] [id number] Department [place] [address] from Last 3 Months or Most Recently Relevant to Health Maintenance Insurance [employer] Care Teams Copy Chaser Relationship Specialty Start Date End Date Desmond Grubbs MD [address] [facility] [address] [place] [address] PCP - General Family Medicine 08/19/24 [place] [address] [place] [address] Nurse Practitioner Endocrinology Diabetes & Metabolism 12/15/23
--- OUTSIDE RECORDS SUMMARY | 2024-09-18 08:32 | XMS_ITS | Encounter Summary ---
Author Organization [facility] Address [address] [place] [address] Phone Care Team Providers Care Residential Program Coordinator Name Role Phone Kenyon Cardoso DO Unavailable [phone] Belem Nova MD Unavailable Provider, Unknown Primary Care Provider Unavaila Kahlil Bell MD Primary Care Provider Kacy Blackman MD Primary Care Provider Unavailable Encounter Details Date Type Department Care Team (Late st Contact Info) Description 04/07/2021 [facility] 1 [place] [address] Kahlil Casas MD [address] [place] [address] [address] [place] [address] Encounter for screening for COVID-19 [...] Associated Diagnosis Comments SARS-COV-2 BY MOLECULAR Routine 04/07/2021 8:41 AM CDT Encounter for screening for COVID-19 documented in this encounter Results * SARS-COV-2 BY MOLECULAR (04/07/2021 8:41 AM CDT) SARSCOV2 NOT DETECTED (Referen ce Range for this test is Not Detected ) [facility] THERMOFISHER FAST DX 04/08/2021 6:[address] [facility] Comment:This test was perfor med by a RT-PCR method. Other No Phlebotomy Charged / Unknown 04/07/2021 8:41 AM CDT 04/07/2021 10:[address] [facility] - 04/08/2021 6:36 AM CDT Authorized Fact Sheets about this test for providers and patients are available at: https://www.fda.gov/medical-devices/rkrmhcuty-roorriesyw-cmukixa-devices/emergen cy-us e-authorizations us Kahlil Casas MD MICROBIOLOGY - GENERAL ORDERAB LES Final Result [facility] [address] [place] [address], documented in this encounter Visit Diagnoses Diagnosis Encounter for screening for COVID-19 documented in this encounter Additional Health Concerns Infection Onset Date Last Indicated Resolved Time COVID - 19 03/31/2021 05/18/2022 05/28/2022 12:1 6 AM ADMITTED ATTORNEYS COVID - 19 07/06/2022 08/31/2022 09/01/2022 11:3 5 AM ADMITTED ATTORNEYS COVID - 19 Confirmed 08/31/2022 08/31/2022 023 12:18 AM CDT documented as of this encounter Care Teams Residential Program Coordinator Relationship Specialty Start Date End Date Provider, Unknown UNKNOWN PCP - General 03/31/21 05/17/22 Kahlil Casas MD [address] [place] [address] [address] [place] [address] PCP - General Family Medicine 05/18/22 10/25/22 Kacy Blackman MD [address] [facility] [place] [address] PCP - General Family Medicine 10/26/22 Kenyon Cardoso DO Gastroenterology 11/24/15 [place] [address] [place] [address] Endocrinology 11/30/20 documented as of this encounter
--- OUTSIDE RECORDS SUMMARY | 2024-09-18 08:32 | XMS_ITS | Encounter Summary ---
Author Organization [facility] Address [address] [place] [address] Phone Care Team Providers Care Associate Professor Of Education Name Role Phone Kenyon Cardoso DO Unavailable [phone] Belem Nova MD Unavailable Kacy Blackman MD Primary Care Provider Unavailable Encounter Details Date Type Department Care Team (Late st Contact Info) Description 08/28/2024 Lab Requisition [facility] Laboratory Services 1 [place] [address] Desmond Grubbs MD [address] [place] [address] [address] Type 1 diabetes mellitus without complications (HCC); Hyperlipidemia, unspecified; Mild intellectual disabilities; Gastro-esophageal reflux disease without esophagitis Social History Tobacco Use Types Packs/Day Years Used Date Smoking Tobacco: Former Cigarettes 1 12 2 - 2013 Smokeless Tobacco: Never Comments:2013 Alcohol [...] Procedure Name Priority Date/Time Associated Diagnosis Comments HEPATIC FUNCTION PANEL Routine 08/28/2024 7:31 AM SYSTEMS ANALYST Type 1 diabetes mellitus without complications (HCC) Hyperlipidemia, unspecified Mild intellectual disabilities Gastro-esophageal reflux disease without esophagitis documented in this encounter Results * HEPATIC FUNCTION PANEL (08/28/2024 7:31 AM SYSTEMS ANALYST) T BILI 0.7 0.2 - 1.2 mg/dL 08/28/2024 8:45 AM SYSTEMS ANALYST [facility] BILIRUBIN,DIRECT 0.2 0.0 - 0.5 mg/dL 08/28/2024 8:45 AM SYSTEMS ANALYST [facility] ALKALINE PHOSPHATASE 62 40 - 150 U/L 08/28/2024 8:[address] [facility] SGOT (AST) 24 6 - 42 U/L 08/28/2024 8:[address] [facility] SGPT (ALT) 18 6 - 55 U/L 08/28/2024 8:[address] [facility] TOTAL PROTEIN 7.8 6.0 - 8.0 g/dL 08/28/2024 8:[address] [facility] ALBUMIN 4.0 3.5 - 5.0 g/dL 08/28/2024 8:[address] [facility] Blood Venipuncture / Unknown 08/28/2024 7:31 AM SYSTEMS ANALYST 08/28/2024 8:07 AM SYSTEMS ANALYST us Desmond Grubbs MD CHEMISTRY ORDERABLES Final Res ult [facility] [address] [place] [address] documented in this encounter Visit Diagnoses Diagnosis Type 1 diabetes mellitus without complications (HCC) Type I (juvenile type) diabetes mellitus without mention of complication, not stated as uncontrolled Hyperlipidemia, unspecified Mild intellectual disabilities Gastro-esophageal reflux disease without esophagitis Esophageal reflux documented in this encounter Care Teams Associate Professor Of Education Relationship Specialty [place] [address] [place] [address] PCP - General Family Medicine 10/26/22 Kenyon Cardoso DO Gastroenterology 11/24/15 [place] [address] [place] [address] Endocrinology 11/30/20 documented as of this encounter
--- OUTSIDE RECORDS SUMMARY | 2024-09-18 08:32 | XMS_ITS | Encounter Summary ---
Author Organization [facility] Address [address] [place] [address] Phone Care Team Providers Care Dial Equipment Engineer Name Role Phone Kenyon Cardoso DO Unavailable [phone] Belem Nova MD Unavailable Provider, Unknown Primary Care Provider Unavaila Kahlil Bell MD Primary Care Provider [phone] Kacy Blackman MD Primary Care Provider Unavailable Encounter Details Date Type Department Care Team (Late st Contact Info) Description 02/09/2022 [facility] 1 [place] [address] Kahlil Casas MD [address] [place] [address] [address] [place] [address] Encounter for screening for COVID-19 [...] Associated Diagnosis Comments SARS-COV-2 BY MOLECULAR Routine 02/09/2022 9:36 AM CDT Encounter for screening for COVID-19 documented in this encounter Results * SARS-COV-2 BY MOLECULAR (02/09/2022 9:36 AM CDT) SARSCOV2 NOT DETECTED (Referen ce Range for this test is Not Detected ) [facility] [place] THERMOFISHER FAST DX 02/10/2022 1:01 PM CDT [facility] Comment:This test was perfor med by a RT-PCR method. Other Non-Phlebotomy Collection / Unknown 02/09/2022 9:36 AM CDT 02/09/2022 12:43 PM CDT Narrative [facility] - 02/10/2022 1:01 PM CDT Authorized Fact Sheets about this test for providers and patients are available at: https://www.fda.gov/medical-devices/lvvcfakfc-ixuinudezq-dtfofnz-devices/emergen cy-us e-authorizations us Kahlil Casas MD MICROBIOLOGY - GENERAL ORDERAB LES Final Result [facility] [address] [place] [address], documented in this encounter Visit Diagnoses Diagnosis Encounter for screening for COVID-19 documented in this encounter Additional Health Concerns Infection Onset Date Last Indicated Resolved Time COVID - 19 03/31/2021 05/18/2022 05/28/2022 12:1 6 AM LINING CASER COVID - 19 07/06/2022 08/31/2022 09/01/2022 11:3 5 AM LINING CASER COVID - 19 Confirmed 08/31/2022 08/31/202209/20/ 023 12:18 AM CDT documented as of this encounter Care Teams Dial Equipment Engineer Relationship Specialty Start Date End Date Provider, Unknown UNKNOWN PCP - General 03/31/21 05/17/22 Kahlil Casas MD [address] [place] [address] [address] [place] [address] PCP - General Family Medicine 05/18/22 10/25/22 Kacy Blackman MD [address] [facility] [address] [place] [address] PCP - General Family Medicine 10/26/22 Kenyon Cardoso DO Gastroenterology 11/24/15 [place] [address] [place] [address] Endocrinology 11/30/20 documented as of this encounter
--- OUTSIDE RECORDS SUMMARY | 2024-09-18 08:32 | XMS_ITS | Encounter Summary ---
Author Organization [facility] Address [address] [facility] [place] [address] Care Team Providers Care Associate Professor Of Economics Name Role Phone Unavailable Primary Care Provider Unavailabl e Encounter Details Date Type Department Care Team (Late st Contact Info) Description 01/18/2020 Lab Requisition [facility] MICROBIOLOGY [address] [place] [address] Faith Lai MD [address] [place] [address] Social History Tobacco Use Types Packs/Day Years Used Date Smoking Tobacco: Never Assessed Sex and Gender Information Value Date Recorded Sex Assigned at Not on file Gender Identity Not on file Sexual Orientation Not on file documented as of this encounter Plan of Treatment Not on file documented as of this encounter Procedures Procedure Name Priority Date/Time Associated Diagnosis Comments SARS-COV-2 (COVID-19) IN HOUSE Routine 01/17/2020 12:13 PM CDT documented in this encounter Results * (ABNORMAL) SARS-COV-2 (COVID-19) IN HOUSE (01/17/2020 12:13 PM CDT) COVID-19 PCR Detected( AA) Not detected, Invalid 01/19/2020 4:16 PM CDT [facility] MICROBIOLOGY Microbiology SPECIMEN FROM NASOPHARYNGEAL STRUCTURE / Unknown Collection / Unknown 01/17/2020 12:13 PM CDT 01/18/2020 2:00 PM CDT Narrative [facility] MICROBIOLOGY - 01/19/2020 4:16 PM CDT This Real Time RT-PCR assay was developed and its performance characteristics determined by [facility]. This test has been authorized [...] Lai MD LAB - MICROBIOLOGY O RDERABLES [facility] MICROBIOLOGY [address] [place] [address], [place] [phone] documented in this encounter Visit Diagnoses Not on filedocumented in this encounter Additional Health Concerns Infection Onset Date Last Indicated Resolved Time COVID-19 Under Investigation 01/17/2020 01/17/2020 01/19/2020 4:16 PM CDT COVID-19 Confirmed 01/17/2020 01/17/2020 0 4:34 AM CDT documented as of this encounter
--- OUTSIDE RECORDS SUMMARY | 2024-09-18 08:32 | XMS_ITS | Encounter Summary ---
Author Organization [facility] Address [address] [place] [address] Phone Care Team Providers Care Sales Agent Trading Stamps Name Role Phone Kenyon Cardoso DO Unavailable [phone] Belem Nova MD Unavailable Provider, Unknown Primary Care Provider Unavaila Kahlil Bell MD Primary Care Provider [phone] Kayc Blackman MD Primary Care Provider Unavailable Encounter Details Date Type Department Care Team (Late st Contact Info) Description 03/30/2022 [facility] 1 [place] [address] Kahlil Casas MD [address] [place] [address] [address] [place] [address] Encounter for screening for COVID-19 [...] Associated Diagnosis Comments SARS-COV-2 BY MOLECULAR Routine 03/30/2022 8:20 AM CDT Encounter for screening for COVID-19 documented in this encounter Results * SARS-COV-2 BY MOLECULAR (03/30/2022 8:20 AM CDT) SARSCOV2 NOT DETECTED (Referen ce Range for this test is Not Detected ) [facility] THERMOFISHER FAST DX 03/31/2022 10:23 AM CDT [facility] Comment:This test was perfor med by a RT-PCR method. Other Non-Phlebotomy Collection / Unknown 03/30/2022 8:20 AM CDT 03/30/2022 11:03 AM CDT Narrative [facility] - 03/31/2022 10:23 AM CDT Authorized Fact Sheets about this test for providers and patients are available at: https://www.fda.gov/medical-devices/ayxzeorol-dngfrebrbs-plkusjr-devices/emergen cy-us e-authorizations us Kahlil Casas MD MICROBIOLOGY - GENERAL ORDERAB LES Final Result [facility] [address] [place] [address], documented in this encounter Visit Diagnoses Diagnosis Encounter for screening for COVID-19 documented in this encounter Additional Health Concerns Infection Onset Date Last Indicated Resolved Time COVID - 19 03/31/2021 05/18/2022 05/28/2022 12:1 6 AM SKIVER BLOCKERS COVID - 19 07/06/2022 08/31/2022 09/01/2022 11:3 5 AM SKIVER BLOCKERS COVID - 19 Confirmed 08/31/2022 08/31/202209/20/ 023 12:18 AM CDT documented as of this encounter Care Teams Sales Agent Trading Stamps Relationship Specialty Start Date End Date Provider, Unknown UNKNOWN PCP - General 03/31/21 05/17/22 Kahlil Casas MD [address] [place] [address] [address] [place] [address] PCP - General Family Medicine 05/18/22 10/25/22 Kacy Blackman MD [address] [facility] [address] [place] [address] PCP - General Family Medicine 10/26/22 Kenyon Cardoso DO Gastroenterology 11/24/15 [place] [address] [place] [address] Endocrinology 11/30/20 documented as of this encounter
--- OUTSIDE RECORDS SUMMARY | 2024-09-18 08:32 | XMS_ITS | Encounter Summary ---
Author Organization [facility] Address [address] [place] [address] Phone Care Team Providers Care Slurry Tank Tender Name Role Phone Kenyon Cardoso DO Unavailable [phone] Belem Nova MD Unavailable Provider, Unknown Primary Care Provider Unavaila Kahlil Bell MD Primary Care Provider Kacy Blackman MD Primary Care Provider Unavailable Encounter Details Date Type Department Care Team (Late st Contact Info) Description 02/02/2022 [facility] 1 [place] [address] Kahlil Casas MD [address] [place] [address] [address] [place] [address] Encounter for screening for COVID-19 [...] Associated Diagnosis Comments SARS-COV-2 BY MOLECULAR Routine 02/02/2022 8:32 AM CDT Encounter for screening for COVID-19 documented in this encounter Results * SARS-COV-2 BY MOLECULAR (02/02/2022 8:32 AM CDT) SARSCOV2 NOT DETECTED (Referen ce Range for this test is Not Detected ) [facility] THERMOFISHER FAST DX 02/03/2022 12:23 AM CDT [facility] Comment:This test was perfor med by a RT-PCR method. Other Non-Phlebotomy Collection / Unknown 02/02/2022 8:32 AM CDT 02/02/2022 11:37 AM CDT Narrative [facility] - 02/03/2022 12:23 AM CDT Authorized Fact Sheets about this test for providers and patients are available at: https://www.fda.gov/medical-devices/uwezzvmwq-lvbcjsoxow-ptqjqbz-devices/emergen cy-us e-authorizations us Kahlil Casas MD MICROBIOLOGY - GENERAL ORDERAB LES Final Result [facility] [address] [place] [address], documented in this encounter Visit Diagnoses Diagnosis Encounter for screening for COVID-19 documented in this encounter Additional Health Concerns Infection Onset Date Last Indicated Resolved Time COVID - 19 03/31/2021 05/18/2022 05/28/2022 12:1 6 AM FROG CATCHER COVID - 19 07/06/2022 08/31/2022 09/01/2022 11:3 5 AM FROG CATCHER COVID - 19 Confirmed 08/31/2022 08/31/202209/20/ 023 12:18 AM CDT documented as of this encounter Care Teams Slurry Tank Tender Relationship Specialty Start Date End Date Provider, Unknown UNKNOWN PCP - General 03/31/21 05/17/22 Kahlil Casas MD [address] [place] [address] [address] [place] [address] PCP - General Family Medicine 05/18/22 10/25/22 Kacy Blackman MD [address] [facility] [address] [place] [address] PCP - General Family Medicine 10/26/22 Kenyon Cardoso DO Gastroenterology 11/24/15 [place] [address] [place] [address] Endocrinology 11/30/20 documented as of this encounter
--- OUTSIDE RECORDS SUMMARY | 2024-09-18 08:32 | XMS_ITS | Encounter Summary ---
Author Organization [facility] Address [address] [place] [address] Phone Care Team Providers Care Urban Designer Name Role Phone Kenyon Cardoso DO Unavailable [phone] Belem Nova MD Unavailable Provider, Unknown Primary Care Provider Unavaila Kahlil Bell MD Primary Care Provider [phone] Kacy Blackman MD Primary Care Provider Unavailable Encounter Details Date Type Department Care Team (Late st Contact Info) Description 02/02/2022 [facility] 1 [place] [address] Kahlil Casas MD [address] [place] [address] [address] [place] [address] Encounter for screening for COVID-19 [...] 19 03/31/2021 05/18/2022 05/28/2022 12:1 6 AM PUNCH PRESS FEEDER COVID - 19 07/06/2022 08/31/2022 09/01/2022 11:3 5 AM PUNCH PRESS FEEDER COVID - 19 Confirmed 08/31/2022 08/31/2022 023 12:18 AM CDT documented as of this encounter Care Teams Urban Designer Relationship Specialty Start Date End Date Provider, Unknown UNKNOWN PCP - General 03/31/21 05/17/22 Kahlil Casas MD [address] [place] [address] [place] [address] PCP - General Family Medicine 05/18/22 10/25/22 Kacy Blackman MD [address] [place] [address] [place] [address] PCP - General Family Medicine 10/26/22 Kenyon Cardoso DO Gastroenterology 11/24/15 [place] [address] [place] [address] Endocrinology 11/30/20 documented as of this encounter
--- OUTSIDE RECORDS SUMMARY | 2024-09-18 08:32 | XMS_ITS | Encounter Summary ---
Author Organization [facility] Address [address] [place] [address] Phone Care Team Providers Care Sales Driver Name Role Phone Kenyon Cardoso DO Unavailable [phone] Belem Nova MD Unavailable Provider, Unknown Primary Care Provider Unavaila Kahlil Bell MD Primary Care Provider Kacy Blackman MD Primary Care Provider Unavailable Encounter Details Date Type Department Care Team (Late st Contact Info) Description 04/06/2022 [facility] 1 [place] [address] Kahlil Casas MD [address] [place] [address] [address] [place] [address] Encounter for screening for COVID-19 [...] Associated Diagnosis Comments SARS-COV-2 BY MOLECULAR Routine 04/06/2022 10:09 AM CDT Encounter for screening for COVID-19 documented in this encounter Results * SARS-COV-2 BY MOLECULAR (04/06/2022 10:09 AM CDT) SARSCOV2 NOT DETECTED (Referen ce Range for this test is Not Detected ) [facility] THERMOFISHER FAST DX 04/07/2022 12:09 AM CDT [facility] Comment:This test was perfor med by a RT-PCR method. Other Non-Phlebotomy Collection / Unknown 04/06/2022 10:09 AM CDT 04/06/2022 11:59 AM CDT Narrative [facility] - 04/07/2022 12:09 AM CDT Authorized Fact Sheets about this test for providers and patients are available at: https://www.fda.gov/medical-devices/xdnftsbas-fqqhemdnln-jsssrbd-devices/emergen cy-us e-authorizations us Kahlil Casas MD MICROBIOLOGY - GENERAL ORDERAB LES Final Result [facility] [address] [place] [address], documented in this encounter Visit Diagnoses Diagnosis Encounter for screening for COVID-19 documented in this encounter Additional Health Concerns Infection Onset Date Last Indicated Resolved Time COVID - 19 03/31/2021 05/18/2022 05/28/2022 12:1 6 AM SIDE PULLER COVID - 19 07/06/2022 08/31/2022 09/01/2022 11:3 5 AM SIDE PULLER COVID - 19 Confirmed 08/31/2022 08/31/202209/20/ 023 12:18 AM CDT documented as of this encounter Care Teams Sales Driver Relationship Specialty Start Date End Date Provider, Unknown UNKNOWN PCP - General 03/31/21 05/17/22 Kahlil Casas MD [address] [facility] [address] [place] [address] PCP - General Family Medicine 05/18/22 10/25/22 Kacy Blackman MD [address] [facility] [address] [place] [address] PCP - General Family Medicine 10/26/22 Kenyon Cardoso DO Gastroenterology 11/24/15 [place] [address] [place] [address] Endocrinology 11/30/20 documented as of this encounter
--- OUTSIDE RECORDS SUMMARY | 2024-09-18 08:32 | XMS_ITS | Encounter Summary ---
Author Organization [facility] Address [address] [place] [address] Phone Care Team Providers Care Loan Clerk Name Role Phone Kenyon Cardoso DO Unavailable [phone] Belem Nova MD Unavailable Provider, Unknown Primary Care Provider Unavaila Kahlil Bell MD Primary Care Provider Kacy Blackman MD Primary Care Provider Unavailable Encounter Details Date Type Department Care Team (Late st Contact Info) Description 05/11/2022 Lab Requisition [facility] Laboratory Services 1 [place] [address] Kahlil Casas MD [address] [place] [address] [address] [place] [address] Encounter for screening for COVID-19 [...] Associated Diagnosis Comments SARS-COV-2 BY MOLECULAR Routine 05/11/2022 8:33 AM CDT Encounter for screening for COVID-19 documented in this encounter Results * SARS-COV-2 BY MOLECULAR (05/11/2022 8:33 AM CDT) SARSCOV2 NOT DETECTED (Referen ce Range for this test is Not Detected ) [facility] THERMOFISHER FAST DX 05/12/2022 12:01 AM CDT [facility] Comment:This test was perfor med by a RT-PCR method. Other Non-Phlebotomy Collection / Unknown 05/11/2022 8:33 AM CDT 05/11/2022 12:53 PM CDT Narrative [facility] - 05/12/2022 12:01 AM CDT Authorized Fact Sheets about this test for providers and patients are available at: https://www.fda.gov/medical-devices/smwptaqlc-btlbqbicfj-lomjrkt-devices/emergen cy-us e-authorizations us Kahlil Casas MD MICROBIOLOGY - GENERAL ORDERAB LES Final Result [facility] [address] [place] [address], documented in this encounter Visit Diagnoses Diagnosis Encounter for screening for COVID-19 documented in this encounter Additional Health Concerns Infection Onset Date Last Indicated Resolved Time COVID - 19 03/31/2021 05/18/2022 05/28/2022 12:1 6 AM ENDBAND SIZER COVID - 19 07/06/2022 08/31/2022 09/01/2022 11:3 5 AM ENDBAND SIZER COVID - 19 Confirmed 08/31/2022 08/31/202209/20/ 023 12:18 AM CDT documented as of this encounter Care Teams Loan Clerk Relationship Specialty Start Date End Date Provider, Unknown UNKNOWN PCP - General 03/31/21 05/17/22 Kahlil Casas MD [address] [place] [address] [address] [place] [address] PCP - General Family Medicine 05/18/22 10/25/22 Kacy Blackman MD 4 [facility] [address] [place] [address] PCP - General Family Medicine 10/26/22 Kenyon Cardoso DO Gastroenterology 11/24/15 [place] [address] [place] [address] Endocrinology 11/30/20 documented as of this encounter
--- OUTSIDE RECORDS SUMMARY | 2024-09-18 08:32 | XMS_ITS | Clinical Summary ---
Author Organization [facility] [address] [place] [id number] Care Team Providers Care Thermometer Production Worker Name Role Phone KaydenJuanAbbirachid Gr NP Unavailable Desmond Grubbs MD Primary Care Provider + Allergies No known active allergies Medications diphenhydrAMINE (diphenhydrAMINE) 25 mg capsule take 2 capsule by oral route every 4 - 6 hours as needed 0 0 6 Active Lactobacillus acidophilus (PROBIOTIC ORAL) Take by mouth licensed massage therapist before breakfast Active clotrimazole 1 % cream [...] 06/14/2023 Assessment & Plan (06/27/2024 10:58 AM ANIMAL HOSPITAL CLERK): Chronic, stable. Continue current regimen including losartan. Update microalbumin Assessment & Plan (12/15/2023 9:37 AM CDT): Chronic problem. Controlled on current Losartan-HCTZ 100-25mg daily, metoprolol XL 100mg daily, amlodipine 10mg daily Assessment & Plan (06/14/2023 9:38 AM ANIMAL HOSPITAL CLERK): Chronic problem. Controlled on current Losartan-HCTZ 100-25mg daily, metoprolol XL 100mg daily, amlodipine 10mg daily Medicare annual wellness visit, subsequent 06/09 Assessment & Plan (06/09/2023 1:21 PM ANIMAL HOSPITAL CLERK): Annual Medicare wellness exam completed today. All [...] Cardiology Assessment & Plan (06/09/2023 1:21 PM ANIMAL HOSPITAL CLERK): Chronic and stable. Will continue all current medications. Will continue to follow-up with cardiology as instructed Assessment & Plan (12/07/2022 11:52 AM CDT): Chronic and stable. Will continue all current medications. Will continue to follow-up with cardiology as instructed Assessment & Plan (08/30/2022 1:06 PM ANIMAL HOSPITAL CLERK): Incidental finding on EKG. ?longstanding vs new onset. Patient currently on metoprolol, will continue. CHADs2 score 4. Will recommend starting Eliquis 2.5mg BID given renal function. Risks/benefits and alternatives discussed. Can discuss with medical [id number] if agrees to start medication. Patient has cardiology eval scheduled in 2 weeks. Will reviewed notes for recommendation Essential hypertension 04/19/2022 Assessment & Plan (12/31/2023 5:57 PM CDT): - chronic, stable at goal of < 140/90 - continue amlodipine 10 mg daily, losartan- HCTZ 100/25 mg daily, plus metoprolol XL 100 mg daily Assessment & Plan (06/09/2023 1:22 PM ANIMAL HOSPITAL CLERK): Chronic and stable. At Goal <130/80. Continue current medication. Will Continue to monitor Assessment & Plan (12/07/2022 11:53 AM CDT): Chronic and stable. At Goal <130/80. Continue current medication. Will Continue to monitor Assessment & Plan (08/30/2022 1:04 PM ANIMAL HOSPITAL CLERK): Chronic and stable. At Goal <130/80. Continue [...] NSAIDs Assessment & Plan (06/14/2023 9:38 AM ANIMAL HOSPITAL CLERK): Chronic, stable problem. Remains CKD 3a. Last creat/GFR: 03/22/23 GFR=49, CR=1.4. Aware to avoid NSAIDs & stay well hydrated. Assessment & Plan (06/09/2023 1:22 PM ANIMAL HOSPITAL CLERK): Chronic and stable. Reviewed lab results for [...] 11/14/2018 Hyperlipidemia associated with type 2 diabetes m tito 11/08/2017 Assessment & Plan (06/27/2024 10:57 AM ANIMAL HOSPITAL CLERK): Chronic, stable. Continue statin therapy with lovastatin Assessment & Plan (12/15/2023 9:37 AM CDT): Chronic problem. Controlled on current Lovastatin 10mg. Last lipid panel: 06/22/23 LDL=77, TG=61. Assessment & Plan (06/14/2023 9:37 AM ANIMAL HOSPITAL CLERK): Chronic problem. Controlled on current Lovastatin 10mg. Last lipid panel: 03/22/23 LDL=76, TG=60. Assessment & Plan (06/09/2023 1:22 PM ANIMAL HOSPITAL CLERK): Chronic and stable. Continue current medication. Will continue to monitor Assessment & Plan (12/07/2022 11:53 AM CDT): Chronic and stable. Continue current medication. Will continue to monitor Assessment & Plan (04/12/2022 11:08 AM CDT): Chronic problem. On statin therapy, no changes. Assessment & Plan (09/01/2021 10:48 AM ANIMAL HOSPITAL CLERK): Chronic problem. On statin therapy, no changes. [...] Mevacor Assessment & Plan (05/25/2020 11:50 AM ANIMAL HOSPITAL CLERK): Goal of treatment , LDL cholesterol less [...] medications. Assessment & Plan (06/20/2018 11:37 AM ANIMAL HOSPITAL CLERK): Goal of treatment , LDL cholesterol less [...] 01/23/2017 Assessment & Plan (06/27/2024 10:57 AM ANIMAL HOSPITAL CLERK): Chronic, stable. Continue current regimen including metformin, [...] infection. Assessment & Plan (06/14/2023 10:03 AM ANIMAL HOSPITAL CLERK): Chronic problem. A1c stable at 6.6%. Current [...] infection. Assessment & Plan (06/09/2023 1:24 PM ANIMAL HOSPITAL CLERK): Dm type 2 with (chronic nephropathy) Recent [...] Discussed with patient and note sent to [facility] Next A1C -12/2022 Most recent Microalbumin - Due ordered. Dilated retinal eye exam - ?Up to date. Referral placed BP at goal <130/80 on ACEI - Continue Vaccines - PCV, Flu, COVID current on all Assessment & Plan (08/30/2022 1:03 PM ANIMAL HOSPITAL CLERK): Dm type 2 with (nephropathy) Recent A1C 6.7 06/2022. No Neuropathy on foot exam Continue low carb diet. Discussed with patient and note sent to [facility] Next A1C -09/2022 Most recent Microalbumin - [...] Discussed with patient and note sent to [facility] Next A1C - 3 months Most recent [...] today. Assessment & Plan (09/01/2021 11:08 AM ANIMAL HOSPITAL CLERK): Chronic problem, trending low normal in the [...] sticks. Assessment & Plan (05/25/2020 11:49 AM ANIMAL HOSPITAL CLERK): Hba1c was Lab Results Component Value Date [...] times. Assessment & Plan (06/20/2018 11:37 AM ANIMAL HOSPITAL CLERK): Hba1c was Lab Results Component Value Date [...] goal hba1c is under 7.0 to prevent termite treater diabetes complications ( eye , kidney and [...] daily Assessment & Plan (08/30/2022 1:04 PM ANIMAL HOSPITAL CLERK): Chronic and stable. Labs reviewed and within [...] changes. Assessment & Plan (09/01/2021 10:48 AM ANIMAL HOSPITAL CLERK): Controlled on current medications, no changes. Assessment & Plan (11/25/2020 10:15 AM CDT): Goal blood pressure is less than 140/85 Low salt diet was discussed andd recommended The importance of daily aerobic exercise was also emphasized. Continue current meds, including ALISHA-I or ARB, e.g. losartan Assessment & Plan (05/25/2020 11:50 AM ANIMAL HOSPITAL CLERK): Goal blood pressure is less than 140/85 [...] medications. Assessment & Plan (06/20/2018 11:37 AM ANIMAL HOSPITAL CLERK): Goal blood pressure is less than 140/85 [...] 10:26 AM CDT): Controlled on current medications. Encounters Date Type Department Care Team Description 08/19/2024 9:00 AM ANIMAL HOSPITAL CLERK Office Visit [facility] Medical [facility] Primary Care at [address] [phone] Desmond Grubbs MD Need for hepatitis B [...] with esophagitis without hemorrhage 07/30/2024 ACO Quality [facility] Accountable Care Organization [address] [place] [address] Ju Soto 07/25/2024 Telephone [facility] Primary Care at [address] [phone] Quita Zapien NP Medical Records Request 06/27/2024 11:38 AM ANIMAL HOSPITAL CLERK - 06/27/2024 11:59 PM ANIMAL HOSPITAL CLERK Hospital Encounter [address] [address] Type 2 diabetes mellitus with hyperglycemia, without long-term current use of insulin (HCC) Discharge Disposition: Discharge to home or self care 06/27/2024 10:45 AM ANIMAL HOSPITAL CLERK Office Visit [facility] [id number] [place] [address] [address] [address] Belem Nova MD Type 2 diabetes mellitus with hyperglycemia, without long-term current use of insulin (HCC) (Primary Dx); Hyperlipidemia associated with type 2 diabetes mellitus (HCC); Hypertension associated with type 2 diabetes mellitus (HCC) from Last 3 Months Immunizations Immunization Administration Dates Next Due Influenza, Quadrivalent, Spl it, Preservative Free, Intramuscular 05/11/2020 Influenza, Trivalent, IM (MDV) 04/22/2017,2015,05/26/2011 Influenza, Unspecified 08/19/2024(Deferr ed: Other - Patient received flu shot at nursing home),05/26/2011 PPD TEST 10/17/2011 LimeTray Sars-Cov-2 Bivalent V accination (12+ YRS) 04/07/2022 Pneumococcal Polysaccharide PPV23 03/03/2011 Tdap 01/29/2022,05/26/2011 ZOSTER Recombinant 12/13/2021 Surgical History Surgery Date Site/Laterality Comments SKIN CANCER EXCISION top of head and back Medical History Medical History Date Comments Hypertension Hypertension Hx Other Medical mental retardat ion Hyperlipidemia Hyperlipidemia Social History Tobacco Use Types Packs/Day Years [...] on file Legal Sex Male 2:47 PM ANIMAL HOSPITAL CLERK Gender Identity Not on file Sexual Orientation Not on file Obstetrics History Last Filed Vital Signs Vital Sign Reading Time Taken Comments Blood Pressure 132/56 08/19/2024 9:05 AM ANIMAL HOSPITAL CLERK Pulse 72 08/19/2024 9:05 AM ANIMAL HOSPITAL CLERK Temperature 36.6 C (97.8 F) 08/19/2024 9:05 AM ANIMAL HOSPITAL CLERK Respiratory Rate 17 06/27/2024 10:16 AM ANIMAL HOSPITAL CLERK Oxygen Saturation 97% 08/19/2024 9:05 AM ANIMAL HOSPITAL CLERK Inhaled Oxygen Concentration - - Weight 80.8 kg (178 lb 3.2 oz) 08/19/2024 9:05 A M ANIMAL HOSPITAL CLERK Height 172.7 cm (5' 8 ) 08/19/2024 9:05 AM ANIMAL HOSPITAL CLERK Body Mass Index 27.1 08/19/2024 9:05 AM ANIMAL HOSPITAL CLERK Plan of Treatment Health Maintenance Due Date Last Done Comments Hepatitis B Screening 1963 Covid-19 Vaccine ( season) 2024 04/07/2022, 05/14/2021, 09/10/2020, Additional history exists Influenza Vaccine (#1) 2024 , 04/22/2017, 04/20/2016, Additional history exists Well Visit 65+ 06/09/2024 06/09/2023 Lipid Panel 09/19/2024 09/20/2023, 06/0 09/2021, 05/25/2020, Additional history exists eGFR 09/19/2024 09/20/2023, 06/1 10/2022, 08/30/2022, Additional history exists Foot Exam 12/14/2024 12/15/2023, 08/11, 04/12/2022, Additional history exists Hemoglobin A1C 12/26/2024 06/27/2024, 06/0 01/2024, 09/20/2023, Additional history exists Zoster Vaccine (2 of 2) 12/27/2024 12/13/2021 Post poned from 02/07/2022 (Patient declined, but will receive in the future) Dilated Eye Exam 04/16/2025 04/16/2024, 05/2023, 03/07/2017 Albumin Creatinine Ratio, Urine 06/27/2025 06/27/2024, 12/07/2022, 05/25/2020, Additional history exists Fall Risk Assessment 06/27/2025 06/27/2024, 06/09/2023, 04/19/2022 Depression Screening 08/19/2025 08/19/2024, 06/27/2024, 06/09/2023, Additional history exists DTaP/Tdap/Td Vaccine (3 - Td or Tdap) 01/30/2032 01/29/2022, 05/26/2011 Pneumococcal vaccine 65+ Completed 06/09/2022, 02/08 Hepatitis C Screening Completed 12/07/2022 Abdominal Aortic Aneurysm (AAA) Screen Discontinued Procedures Procedure Name Priority Date/Time Associated Diagnosis Comments POCT GLUCOSE Routine 06/27/2024 10:17 AM ANIMAL HOSPITAL CLERK Type 2 diabetes mellitus with hyperglycemia, without long-term current use of insulin (HCC) POCT HEMOGLOBIN A1C Routine 06/27/2024 1 0:17 AM ANIMAL HOSPITAL CLERK Type 2 diabetes mellitus with hyperglycemia, without long-term current use of insulin (HCC) ALBUMIN CREATININE RATIO, URINE Routine 06/27/2024 10:00 AM ANIMAL HOSPITAL CLERK Type 2 diabetes mellitus with hyperglycemia, without [...] (ABNORMAL) POCT hemoglobin A1c (06/27/2024 10:17 AM ANIMAL HOSPITAL CLERK) Hemoglobin A1C, POC 6.9 4.0 - 5.6 % Comment:None Capillary blood 06/27/2024 1 0:17 AM ANIMAL HOSPITAL CLERK us Belem Nova MD POINT OF CARE TEST ORDERABLES Fi nal Result * (ABNORMAL) POCT glucose (06/27/2024 10:17 AM ANIMAL HOSPITAL CLERK) Glucose Blood, POC 198 mg/dL Comment:None Blood 06/27/2024 10:1 7 AM ANIMAL HOSPITAL CLERK us Belem Nova MD POINT OF CARE TEST ORDERABLES Fi nal Result * Albumin Creatinine Ratio, Urine (06/27/2024 10:00 AM ANIMAL HOSPITAL CLERK) Albumin Ur <12.0 mg/L Comment: Interpretive Data No reference range established. Current interpretive data was last revised 2018. Creatinine Ur 103.3 mg/dL [facility] Comment: Interpretive Data No reference range established. Current interpretive data was last revised 2018. Albumin Creatinine Ratio, Ur <12 1 - 29 mg/g [facility] Urine 06/27/2024 10:0 0 AM ANIMAL HOSPITAL CLERK 06/27/2024 2:41 PM ANIMAL HOSPITAL CLERK Belem Nova MD LAB URINE ORDERABLES Final Resul t [facility] [id number] [place] [address] * HM DIABETES EYE EXAM (04/16/2024 9:07 AM CDT) Historical Juan [facility] Final Result * Lipid panel [...] NA EXTERNAL LAB SCRIBED eGFR in NonAfrican Venezuelan 45 >60 - NA EXTERNAL LAB Blood [...] O RDERABLES Edited Result - Final [facility] [id number] [address] [place] [address] from Last 3 Months or Most Recently Relevant to Health Maintenance Insurance [employer] [facility] MEDICARE Address: [address] [address] [place] [address] Care Teams Thermometer Production Worker Relationship Specialty Start Date End Date Desmond Grubbs MD [address] [address] PCP - General Family Medicine 08/19/24 [place] [address] [place] [address] Nurse Practitioner Endocrinology Diabetes & Metabolism 12/15/23
--- OUTSIDE RECORDS SUMMARY | 2024-09-18 08:32 | XMS_ITS | Encounter Summary ---
Author Organization [facility] Address [address] [place] [address] Phone Care Team Providers Care Instructional Material Director Name Role Phone Kenyon Cardoso DO Unavailable [phone] Belem Nova MD Unavailable Provider, Unknown Primary Care Provider Unavaila Kahlil Bell MD Primary Care Provider [phone] Kacy Blackman MD Primary Care Provider Unavailable Encounter Details Date Type Department Care Team (Late st Contact Info) Description 05/04/2022 Lab Requisition [facility] Laboratory Services 1 [place] [address] Kahlil Casas MD [address] [place] [address] [address] [place] [address] Encounter for screening for COVID-19 [...] Associated Diagnosis Comments SARS-COV-2 BY MOLECULAR Routine 05/04/2022 9:35 AM CDT Encounter for screening for COVID-19 documented in this encounter Results * SARS-COV-2 BY MOLECULAR (05/04/2022 9:35 AM CDT) SARSCOV2 NOT DETECTED (Referen ce Range for this test is Not Detected ) [facility] THERMOFISHER FAST DX 05/05/2022 12:22 AM CDT [facility] Comment:This test was perfor med by a RT-PCR method. Other Non-Phlebotomy Collection / Unknown 05/04/2022 9:35 AM CDT 05/04/2022 10:46 AM CDT Narrative [facility] - 05/05/2022 12:22 AM CDT Authorized Fact Sheets about this test for providers and patients are available at: https://www.fda.gov/medical-devices/wsgdzehjy-mmwirjdqhu-kkfwriu-devices/emergen cy-us e-authorizations us Kahlil Casas MD MICROBIOLOGY - GENERAL ORDERAB LES Final Result [facility] [address] [place] [address], documented in this encounter Visit Diagnoses Diagnosis Encounter for screening for COVID-19 documented in this encounter Additional Health Concerns Infection Onset Date Last Indicated Resolved Time COVID - 19 03/31/2021 05/18/2022 05/28/2022 12:1 6 AM CRIME SCENE EXAMINER COVID - 19 07/06/2022 08/31/2022 09/01/2022 11:3 5 AM CRIME SCENE EXAMINER COVID - 19 Confirmed 08/31/2022 08/31/2022 023 12:18 AM CDT documented as of this encounter Care Teams Instructional Material Director Relationship Specialty Start Date End Date Provider, Unknown UNKNOWN PCP - General 03/31/21 05/17/22 Kahlil Casas MD [address] [place] [address] [address] [place] [address] PCP - General Family Medicine 05/18/22 10/25/22 Kacy Blackman MD [address] [facility] [address] [place] [address] PCP - General Family Medicine 10/26/22 Kenyon Cardoso DO Gastroenterology 11/24/15 [place] [address] [place] [address] Endocrinology 11/30/20 documented as of this encounter
--- OUTSIDE RECORDS SUMMARY | 2024-09-18 08:32 | XMS_ITS | Encounter Summary ---
Author Organization [facility] Address [address] [place] [address] Phone Care Team Providers Care Bat Boy/Girl Name Role Phone Kenyon Cardoso DO Unavailable [phone] Belem Nova MD Unavailable Provider, Unknown Primary Care Provider Unavaila Kahlil Bell MD Primary Care Provider Kacy Blackman MD Primary Care Provider Unavailable Encounter Details Date Type Department Care Team (Late st Contact Info) Description 03/02/2022 Lab Requisition [facility] Laboratory Services 1 [place] [address] Kahlil Casas MD [address] [place] [address] [address] [place] [address] Encounter for screening for COVID-19 [...] Associated Diagnosis Comments SARS-COV-2 BY MOLECULAR Routine 03/02/2022 7:57 AM CDT Encounter for screening for COVID-19 documented in this encounter Results * SARS-COV-2 BY MOLECULAR (03/02/2022 7:57 AM CDT) SARSCOV2 NOT DETECTED (Referen ce Range for this test is Not Detected ) [facility] THERMOFISHER FAST DX 03/03/2022 8:39 AM CDT [facility] Comment:This test was perfor med by a RT-PCR method. Other Non-Phlebotomy Collection / Unknown 03/02/2022 7:57 AM CDT 03/02/2022 11:47 AM CDT Narrative [facility] - 03/03/2022 8:39 AM CDT Authorized Fact Sheets about this test for providers and patients are available at: https://www.fda.gov/medical-devices/djqxemxgy-gwffscbekb-eggarsy-devices/emergen cy-us e-authorizations us Kahlil Casas MD MICROBIOLOGY - GENERAL ORDERAB LES Final Result [facility] [address] [place] [address], documented in this encounter Visit Diagnoses Diagnosis Encounter for screening for COVID-19 documented in this encounter Additional Health Concerns Infection Onset Date Last Indicated Resolved Time COVID - 19 03/31/2021 05/18/2022 05/28/2022 12:1 6 AM SOFTWARE DEVELOPER MANAGER COVID - 19 07/06/2022 08/31/2022 09/01/2022 11:3 5 AM SOFTWARE DEVELOPER MANAGER COVID - 19 Confirmed 08/31/2022 08/31/202209/20/ 023 12:18 AM CDT documented as of this encounter Care Teams Bat Boy/Girl Relationship Specialty Start Date End Date Provider, Unknown UNKNOWN PCP - General 03/31/21 05/17/22 Kahlil Casas MD [address] [place] [address] [address] [place] [address] PCP - General Family Medicine 05/18/22 10/25/22 Kacy Blackman MD [address] [facility] [address] [place] [address] PCP - General Family Medicine 10/26/22 Kenyon Cardoso DO Gastroenterology 11/24/15 [place] [address] [place] [address] Endocrinology 11/30/20 documented as of this encounter
--- OUTSIDE RECORDS SUMMARY | 2024-09-18 08:32 | XMS_ITS | Encounter Summary ---
[facility] Address [address] [place] [address] Phone Care Team Providers Care Labor Relations Specialist Name Role Phone Kacy Blackman MD Primary Care Provider + [phone] Abbi Monique NP Unavailable [phone] Quita Zapien NP Primary Care Provider + [phone] Desmond Grubbs MD Primary Care Provider + Encounter Details Date Type Department Care Team (Late st Contact Info) Description 11/09/2022 Orders Only [facility] [address] [place] [address] Scanning, Provider Social History Tobacco [...] on file Legal Sex Male 2:47 PM CONTINUOUS CRUSHER OPERATOR Gender Identity Not on file Sexual Orientation Not on file documented as of this encounter Plan of Treatment Not on file documented as of this encounter Procedures Procedure Name Priority Date/Time Associated Diagnosis Comments CARDIOLOGY DOCUMENT SCAN 11/09/2022 documented in this encounter Results * CARDIOLOGY DOCUMENT SCAN (11/09/2022) Anatomical Region Laterality Modality Other us Provider Scanning CV CARDIAC SERVICES PROCEDURES Final Result documented in this encounter Visit Diagnoses Not on filedocumented in this encounter Care Teams Labor Relations Specialist Relationship Specialty Start Date End Date Kacy Blackman MD PCP - General Family Practice 04/19/22 12/28/23 Quita Zapien NP [address] [facility] [address] [place] [address] PCP - General Cabin Furnishings Installer 12/29/23 08/18/24 Desmond Grubbs MD [address] [facility] [address] [place] [address] PCP - General Family Medicine 08/19/24 [place] [address] [place] [address] Nurse Practitioner Endocrinology Diabetes & Metabolism 12/15/23 documented as of this encounter
--- OUTSIDE RECORDS SUMMARY | 2024-09-18 08:32 | XMS_ITS | Encounter Summary ---
Author Organization [facility] Address [address] [place] [address] Phone Care Team Providers Care Electro Mechanical Technician Name Role Phone Kenyon Cardoso DO Unavailable [phone] Belem Nova MD Unavailable Provider, Unknown Primary Care Provider Unavaila Kahlil Bell MD Primary Care Provider [phone] Kacy Blackman MD Primary Care Provider Unavailable Encounter Details Date Type Department Care Team (Late st Contact Info) Description 03/16/2022 [facility] 1 [place] [address] Kahlil Casas MD [address] [place] [address] [address] [place] [address] Encounter for screening for COVID-19 [...] Associated Diagnosis Comments SARS-COV-2 BY MOLECULAR Routine 03/16/2022 8:08 AM CDT Encounter for screening for COVID-19 documented in this encounter Results * SARS-COV-2 BY MOLECULAR (03/16/2022 8:08 AM CDT) SARSCOV2 NOT DETECTED (Referen ce Range for this test is Not Detected ) [facility] THERMOFISHER FAST DX 03/17/2022 8:42 AM CDT [facility] Comment:This test was perfor med by a RT-PCR method. Other COVID 19 Home Health/ Custodial Facility Collection / Unknown 03/16/2022 8:08 AM CDT 03/16/2022 1:25 PM CDT Narrative [facility] - 03/17/2022 8:42 AM CDT Authorized Fact Sheets about this test for providers and patients are available at: https://www.fda.gov/medical-devices/cqiwaeheb-xijplkyeqv-pimrauu-devices/emergen cy-us e-authorizations us Kahlil Casas MD MICROBIOLOGY - GENERAL ORDERAB LES Final Result [facility] [address] [place] [address], documented in this encounter Visit Diagnoses Diagnosis Encounter for screening for COVID-19 documented in this encounter Additional Health Concerns Infection Onset Date Last Indicated Resolved Time COVID - 19 03/31/2021 05/18/2022 05/28/2022 12:1 6 AM FABRIC COATING SUPERVISOR COVID - 19 07/06/2022 08/31/2022 09/01/2022 11:3 5 AM FABRIC COATING SUPERVISOR COVID - 19 Confirmed 08/31/2022 08/31/2022 023 12:18 AM CDT documented as of this encounter Care Teams Electro Mechanical Technician Relationship Specialty Start Date End Date Provider, Unknown UNKNOWN PCP - General 03/31/21 05/17/22 Kahlil Casas MD [address] [place] [address] [address] [place] [address] PCP - General Family Medicine 05/18/22 10/25/22 Kacy Blackman MD [address] [place] [address] [address] [place] [address] PCP - General Family Medicine 10/26/22 Kenyon Cardoso DO Gastroenterology 11/24/15 [place] [address] [place] [address] Endocrinology 11/30/20 documented as of this encounter
--- OUTSIDE RECORDS SUMMARY | 2024-09-18 08:32 | XMS_ITS | Encounter Summary ---
Author Organization [facility] Address [address] [place] [address] Phone Care Team Providers Care Counter Control Operator Name Role Phone Kenyon Cardoso DO Unavailable [phone] Belem Nova MD Unavailable Provider, Unknown Primary Care Provider Unavaila Kahlil Bell MD Primary Care Provider Kacy Blackman MD Primary Care Provider Unavailable Encounter Details Date Type Department Care Team (Late st Contact Info) Description 04/21/2021 Lab Requisition [facility] Laboratory Services 1 [place] [address] Kahlil Casas MD [address] [place] [address] [address] [place] [address] Social History Tobacco Use Types [...] Associated Diagnosis Comments SARS-COV-2 BY MOLECULAR Routine 04/21/2021 8:54 AM CDT documented in this encounter Results * SARS-COV-2 BY MOLECULAR (04/21/2021 8:54 AM CDT) SARSCOV2 NOT DETECTED (Referen ce Range for this test is Not Detected ) [facility] THERMOFISHER FAST DX 04/22/2021 10:46 AM CDT [facility] Comment:This test was perfor med by a RT-PCR method. Other Non-Phlebotomy Collection / Unknown 04/21/2021 8:54 AM CDT 04/21/2021 10:34 AM CDT Narrative [facility] - 04/22/2021 10:46 AM CDT Authorized Fact Sheets about this test for providers and patients are available at: https://www.fda.gov/medical-devices/bykgxvypc-khyzdqryuh-gveivaf-devices/emergen cy-us e-authorizations us Kahlil Casas MD MICROBIOLOGY - GENERAL ORDERAB LES Final Result [facility] [address] [place] [address], documented in this encounter Visit Diagnoses Not on filedocumented in this encounter Additional Health Concerns Infection Onset Date Last Indicated Resolved Time COVID - 19 03/31/2021 05/18/2022 05/28/2022 12:1 6 AM SPECIALTY MOLDER COVID - 19 07/06/2022 08/31/2022 09/01/2022 11:3 5 AM SPECIALTY MOLDER COVID - 19 Confirmed 08/31/2022 08/31/2022 023 12:18 AM CDT documented as of this encounter Care Teams Counter Control Operator Relationship Specialty Start Date End Date Provider, Unknown UNKNOWN PCP - General 03/31/21 05/17/22 Kahlil Casas MD [address] [facility] [address] [place] [address] PCP - General Family Medicine 05/18/22 10/25/22 Kacy Blackman MD [address] [facility] [address] [place] [address] PCP - General Family Medicine 10/26/22 Kenyon Cardoso DO Gastroenterology 11/24/15 [place] [address] [place] [address] Endocrinology 11/30/20 documented as of this encounter
--- OUTSIDE RECORDS SUMMARY | 2024-09-18 08:32 | XMS_ITS | Encounter Summary ---
Author Organization [facility] Address [address] [place] [address] Phone Care Team Providers Care Machine Leather Trimmer Name Role Phone Kenyon Cardoso DO Unavailable [phone] Belem Nova MD Unavailable Kahlil Casas MD Primary Care Provider Kacy Blackman MD Primary Care Provider Unavailable Encounter Details Date Type Department Care Team (Late st Contact Info) Description 07/20/2022 Lab Requisition [facility] Laboratory Services 1 [place] [address] Kahlil Casas MD [address] [place] [address] [address] [place] [address] Encounter for screening for COVID-19 [...] Associated Diagnosis Comments SARS-COV-2 BY MOLECULAR Routine 07/20/2022 12:39 PM INFORMATION SERVICES VICE PRESIDENT Encounter for screening for COVID-19 documented in this encounter Results * SARS-COV-2 BY MOLECULAR (07/20/2022 12:39 PM INFORMATION SERVICES VICE PRESIDENT) SARSCOV2 NOT DETECTED (Referen ce Range for this test is Not Detected ) [facility] THERMOFISHER FAST DX 07/20/2022 10:53 PM INFORMATION SERVICES VICE PRESIDENT [facility] Comment:This test was perfor med by a RT-PCR method. Other Non-Phlebotomy Collection / Unknown 07/20/2022 12:39 PM INFORMATION SERVICES VICE PRESIDENT 07/20/2022 1:56 PM INFORMATION SERVICES VICE PRESIDENT Narrative [facility] - 07/20/2022 10:53 PM INFORMATION SERVICES VICE PRESIDENT Authorized Fact Sheets about this test for providers and patients are available at: https://www.fda.gov/medical-devices/kltvztsrb-ciobastygs-irmidcb-devices/emergen -us e-authorizations us Kahlil Casas MD MICROBIOLOGY - GENERAL ORDERAB LES Final Result [facility] [address] [place] [address], documented in this encounter Visit Diagnoses Diagnosis Encounter for screening for COVID-19 documented in this encounter Additional Health Concerns Infection Onset Date Last Indicated Resolved Time COVID - 19 07/06/2022 08/31/2022 09/01/2022 11:3 5 AM INFORMATION SERVICES VICE PRESIDENT COVID - 19 Confirmed 08/31/2022 08/31/202209/20/ 023 12:18 AM CDT documented as of this encounter Care Teams Machine Leather Trimmer Relationship Specialty Start Date End Date Kahlil Casas MD [address] [place] [address] [place] [address] PCP - General Family Medicine 05/18/22 10/25/22 Kacy Blackman MD [address] [place] [address] [place] [address] PCP - General Family Medicine 10/26/22 Kenyon Cardoso DO Gastroenterology 11/24/15 [place] [address] [place] [address] Endocrinology 11/30/20 documented as of this encounter
--- OUTSIDE RECORDS SUMMARY | 2024-09-18 08:32 | XMS_ITS | Encounter Summary ---
Author Organization [facility] Address [address] [place] [address] Phone Care Team Providers Care Enterprise Resource Planning Consultant Name Role Phone Kenyon Cardoso DO Unavailable [phone] Belem Nova MD Unavailable Provider, Unknown Primary Care Provider Unavaila Kahlil Bell MD Primary Care Provider Kacy Blackman MD Primary Care Provider Unavailable Encounter Details Date Type Department Care Team (Late st Contact Info) Description 04/27/2022 Lab Requisition [facility] Laboratory Services 1 [place] [address] Kahlil Casas MD [address] [place] [address] [address] [place] [address] Encounter for screening for COVID-19 [...] Associated Diagnosis Comments SARS-COV-2 BY MOLECULAR Routine 04/27/2022 10:08 AM CDT Encounter for screening for COVID-19 documented in this encounter Results * SARS-COV-2 BY MOLECULAR (04/27/2022 10:08 AM CDT) SARSCOV2 NOT DETECTED (Referen ce Range for this test is Not Detected ) [facility] THERMOFISHER FAST DX 04/27/2022 11:59 PM CDT [facility] Comment:This test was perfor med by a RT-PCR method. Other Non-Phlebotomy Collection / Unknown 04/27/2022 10:08 AM CDT 04/27/2022 11:16 AM CDT Narrative [facility] - 04/27/2022 11:59 PM CDT Authorized Fact Sheets about this test for providers and patients are available at: https://www.fda.gov/medical-devices/lukushcob-kgoylzelmq-lyigmtl-devices/emergen cy-us e-authorizations us Kahlil Casas MD MICROBIOLOGY - GENERAL ORDERAB LES Final Result [facility] [address] [place] [address], documented in this encounter Visit Diagnoses Diagnosis Encounter for screening for COVID-19 documented in this encounter Additional Health Concerns Infection Onset Date Last Indicated Resolved Time COVID - 19 03/31/2021 05/18/2022 05/28/2022 12:1 6 AM ENERGY OPERATIONS VICE PRESIDENT COVID - 19 07/06/2022 08/31/2022 09/01/2022 11:3 5 AM ENERGY OPERATIONS VICE PRESIDENT COVID - 19 Confirmed 08/31/2022 08/31/2022 023 12:18 AM CDT documented as of this encounter Care Teams Enterprise Resource Planning Consultant Relationship Specialty Start Date End Date Provider, Unknown UNKNOWN PCP - General 03/31/21 05/17/22 Kahlil Casas MD [address] [facility] [address] [place] [address] PCP - General Family Medicine 05/18/22 10/25/22 Kacy Blackman MD [address] [facility] [address] [place] [address] PCP - General Family Medicine 10/26/22 Kenyon Cardoso DO Gastroenterology 11/24/15 [place] [address] [place] [address] Endocrinology 11/30/20 documented as of this encounter
--- OUTSIDE RECORDS SUMMARY | 2024-09-18 08:32 | XMS_ITS | Encounter Summary ---
Author Organization [facility] Address [address] [place] [address] Phone Care Team Providers Care Launching Pad Mechanic Name Role Phone Kenyon Cardoso DO Unavailable [phone] Belem Nova MD Unavailable Provider, Unknown Primary Care Provider Unavaila Kahlil Bell MD Primary Care Provider [phone] Kacy Blackman MD Primary Care Provider Unavailable Encounter Details Date Type Department Care Team (Late st Contact Info) Description 02/23/2022 [facility] 1 [place] [address] Kahlil Casas MD [address] [place] [address] [address] [place] [address] Encounter for screening for COVID-19 [...] Associated Diagnosis Comments SARS-COV-2 BY MOLECULAR Routine 02/23/2022 8:36 AM CDT Encounter for screening for COVID-19 documented in this encounter Results * SARS-COV-2 BY MOLECULAR (02/23/2022 8:36 AM CDT) SARSCOV2 NOT DETECTED (Referen ce Range for this test is Not Detected ) [facility] THERMOFISHER FAST DX 02/24/2022 11:58 AM CDT [facility] Comment:This test was perfor med by a RT-PCR method. Other Non-Phlebotomy Collection / Unknown 02/23/2022 8:36 AM CDT 02/23/2022 12:44 PM CDT Narrative [facility] - 02/24/2022 11:58 AM CDT Authorized Fact Sheets about this test for providers and patients are available at: https://www.fda.gov/medical-devices/vgwkbjqxe-wtirsptplw-omhrxoi-devices/emergen cy-us e-authorizations us Kahlil Casas MD MICROBIOLOGY - GENERAL ORDERAB LES Final Result [facility] [address] [place] [address], documented in this encounter Visit Diagnoses Diagnosis Encounter for screening for COVID-19 documented in this encounter Additional Health Concerns Infection Onset Date Last Indicated Resolved Time COVID - 19 03/31/2021 05/18/2022 05/28/2022 12:1 6 AM CINDER PITMAN COVID - 19 07/06/2022 08/31/2022 09/01/2022 11:3 5 AM CINDER PITMAN COVID - 19 Confirmed 08/31/2022 08/31/202209/20/ 023 12:18 AM CDT documented as of this encounter Care Teams Launching Pad Mechanic Relationship Specialty Start Date End Date Provider, Unknown UNKNOWN PCP - General 03/31/21 05/17/22 Kahlil Casas MD [address] [place] [address] [address] [place] [address] PCP - General Family Medicine 05/18/22 10/25/22 Kacy Blackman MD [address] [facility] [address] [place] [address] PCP - General Family Medicine 10/26/22 Kenyon Cardoso DO Gastroenterology 11/24/15 [place] [address] [place] [address] Endocrinology 11/30/20 documented as of this encounter
--- OUTSIDE RECORDS SUMMARY | 2024-09-18 08:32 | XMS_ITS | Encounter Summary ---
Author Organization [facility] Address [address] [place] [address] Phone Care Team Providers Care Rental Car Porter Name Role Phone Kenyon Cardoso DO Unavailable [phone] Belem Nova MD Unavailable Kahlil Casas MD Primary Care Provider Kacy Blackman MD Primary Care Provider Unavailable Encounter Details Date Type Department Care Team (Late st Contact Info) Description 07/27/2022 Lab Requisition [facility] Laboratory Services 1 [place] [address] Kahlil Casas MD [address] [place] [address] [address] [place] [address] Encounter for screening for COVID-19 [...] Associated Diagnosis Comments SARS-COV-2 BY MOLECULAR Routine 07/27/2022 8:18 AM IRONER HAND Encounter for screening for COVID-19 documented in this encounter Results * SARS-COV-2 BY MOLECULAR (07/27/2022 8:18 AM IRONER HAND) SARSCOV2 NOT DETECTED (Referen ce Range for this test is Not Detected ) [facility] THERMOFISHER FAST DX 07/27/2022 8:36 PM IRONER HAND [facility] Comment:This test was perfor med by a RT-PCR method. Other Non-Phlebotomy Collection / Unknown 07/27/2022 8:18 AM IRONER HAND 07/27/2022 9:52 AM IRONER HAND Narrative [facility] - 07/27/2022 8:36 PM IRONER HAND Authorized Fact Sheets about this test for providers and patients are available at: https://www.fda.gov/medical-devices/nemuifdzd-bczvzpbzvd-fngcfrl-devices/emergen -us e-authorizations us Kahlil Csaas MD MICROBIOLOGY - GENERAL ORDERAB LES Final Result [facility] [address] [place] [address], documented in this encounter Visit Diagnoses Diagnosis Encounter for screening for COVID-19 documented in this encounter Additional Health Concerns Infection Onset Date Last Indicated Resolved Time COVID - 19 07/06/2022 08/31/2022 09/01/2022 11:3 5 AM IRONER HAND COVID - 19 Confirmed 08/31/2022 08/31/202209/20/ 023 12:18 AM CDT documented as of this encounter Care Teams Rental Car Porter Relationship Specialty Start Date End Date Kahlil Casas MD [address] [place] [address] [place] [address] PCP - General Family Medicine 05/18/22 10/25/22 Kacy Blackman MD [address] [place] [address] [place] [address] PCP - General Family Medicine 10/26/22 Kenyon Cardoso DO Gastroenterology 11/24/15 [place] [address] [place] [address] Endocrinology 11/30/20 documented as of this encounter
--- OUTSIDE RECORDS SUMMARY | 2024-09-18 08:32 | XMS_ITS | Encounter Summary ---
Author Organization [facility] Address [address] [place] [address] Phone Care Team Providers Care Marketing Planning Manager Name Role Phone Kenyon Cardoso DO Unavailable [phone] Belem Nova MD Unavailable Kacy Blackman MD Primary Care Provider Unavailable Encounter Details Date Type Department Care Team (Late st Contact Info) Description 09/11/2024 Lab Requisition [facility] Laboratory Services 1 [place] [address] Desmond Grubbs MD [address] [place] [address] Type 1 diabetes mellitus with ketoacidosis without coma (HCC); Calculus of lower urinary tract, unspecified; Mild intellectual disabilities; Hyperlipidemia, unspecified; Encounter for screening for malignant neoplasm of prostate; Essential (primary) hypertension Social History Tobacco Use Types Packs/Day Years [...] Comments HEMOGLOBIN A1C W/ ESTIMATED GLUCOSE Routine 09/11/2024 6:48 AM TOY DESIGNER Type 1 diabetes mellitus with ketoacidosis without coma (HCC) Calculus of lower urinary tract, unspecified Mild intellectual disabilities Hyperlipidemia, unspecified Encounter for screening for malignant neoplasm of prostate Essential (primary) hypertension CBC WITH AUTO DIFFERENTIAL Routine 09/11/2024 6:48 AM TOY DESIGNER Type 1 diabetes mellitus with ketoacidosis without coma (HCC) Calculus of lower urinary tract, unspecified Mild intellectual disabilities Hyperlipidemia, unspecified Encounter for screening for malignant neoplasm of prostate Essential (primary) hypertension THYROID STIMULATING HORMONE (TSH) Routine 09/11/2024 6:48 AM TOY DESIGNER Type 1 diabetes mellitus with ketoacidosis without coma (HCC) Calculus of lower urinary tract, unspecified Mild intellectual disabilities Hyperlipidemia, unspecified Encounter for screening for malignant neoplasm of prostate Essential (primary) hypertension PSA SCREEN Routine 09/11/2024 6:48 AM TOY DESIGNER Type 1 diabetes mellitus with ketoacidosis without coma (HCC) Calculus of lower urinary tract, unspecified Mild intellectual disabilities Hyperlipidemia, unspecified Encounter for screening for malignant neoplasm of prostate Essential (primary) hypertension CMP (COMPREHENSIVE METABOLIC PANEL) Routine 09/11/2024 6:48 AM TOY DESIGNER Type 1 diabetes mellitus with ketoacidosis without coma (HCC) Calculus of lower urinary tract, unspecified Mild intellectual disabilities Hyperlipidemia, unspecified Encounter for screening for malignant neoplasm of prostate Essential (primary) hypertension COMPLETE BLOOD COUNT (CBC) WITH DIFF Routine 09/11/2024 6:48 AM TOY DESIGNER Type 1 diabetes mellitus with ketoacidosis without coma (HCC) Calculus of lower urinary tract, unspecified Mild intellectual disabilities Hyperlipidemia, unspecified Encounter for screening for malignant neoplasm of prostate Essential (primary) hypertension documented in this encounter Results * CBC WITH AUTO DIFFERENTIAL (09/11/2024 6:48 AM TOY DESIGNER) WBC 5.99 4.00 - 12.00 10(3)/mcL 09/11/2024 8:02 AM [facility] RBC 4.48 4.40 - 5.80 10(6)/mcL 09/11/2024 8:02 AM [facility] HEMOGLOBIN (HGB) 13.9 13.0 - 16.5 g/dL 09/11/2024 8:02 AM [facility] HEMATOCRIT (HCT) 41.3 38.0 - 50.0 % 09/11/2024 8:02 AM [facility] MCV 92.2 82.0 - 96.0 fL 09/11/2024 8:02 AM [facility] MCH 31.0 26.0 - 32.0 pg 09/11/2024 8:02 AM [facility] MCHC 33.7 31.0 - 36.0 g/dL 09/11/2024 8:02 AM [facility] PLATELET COUNT 279 140 - 440 10(3)/[facility] 09/11/2024 8:02 AM [facility] RDW 14.1 11.8 - 15.5 % 09/11/2024 8:02 AM [facility] MPV 10.4 8.0 - 12.6 fL 09/11/2024 8:02 AM [facility] NEUTROPHILS 62.5 40.0 - 68.0 % 09/11/2024 8:02 AM [facility] LYMPHOCYTES 23.0 19.0 - 49.0 % 09/11/2024 8:02 AM [facility] MONOCYTES 10.0 3.0 - 13.0 % 09/11/2024 8:02 AM [facility] EOSINOPHILS 3.8 0.0 - 8.0 % 09/11/2024 8:02 AM [facility] BASOPHILS 0.7 0.0 - 1.0 % 09/11/2024 8:02 AM [facility] ABSOLUTE NEUTROPHILS 3.74 1.40 - 5.30 10(3)/mcL 09/11/2024 8:02 AM TOY DESIGNER [facility] ABSOLUTE LYMPHOCYTES 1.38 0.90 - 3.30 10(3)/mcL 09/11/2024 8:02 AM TOY DESIGNER [facility] ABSOLUTE MONOCYTES 0.60 0.10 - 0.90 10(3)/mcL 09/11/2024 8:02 AM TOY DESIGNER [facility] ABSOLUTE EOSINOPHIL 0.23 0.00 - 0.50 10(3)/[facility] 09/11/2024 8:02 AM TOY DESIGNER [facility] ABSOLUTE BASOPHILS 0.04 0.00 - 0.10 10(3)/[facility] 09/11/2024 8:02 AM TOY DESIGNER [facility] NRBC PER 100 WBC 0 09/12/19 8:02 AM TOY DESIGNER [facility] Blood Venipuncture / Unknown 09/11/2024 6:48 AM TOY DESIGNER 09/11/2024 7:39 AM TOY DESIGNER us Desmond Grubbs MD HEMATOLOGY ORDERABLES Final Re sult Performing Organization Address City/[facility]/ZIP Co de Phone Number [facility] [address] [place] [address] * THYROID STIMULATING HORMONE (TSH) (09/11/2024 6:48 AM TOY DESIGNER) [facility] TSH 3.669 0.300 - 5.000 mIU/L 09/11/2024 8:43 AM TOY DESIGNER [facility] Blood Venipuncture / Unknown 09/11/2024 6:48 AM TOY DESIGNER 09/11/2024 7:39 AM TOY DESIGNER us Desmond Grubbs MD CHEMISTRY ORDERABLES Final Res ult Performing Organization Address City/[facility]/ZIP Co de Phone Number [facility] [address] [place] [address] * PSA SCREEN (09/11/2024 6:48 AM TOY DESIGNER) Pathologist [facility] PSA SCREEN, TOTAL 1.77 <4.00 ng/mL 09/11/2024 8:33 AM TOY DESIGNER [facility] Blood Venipuncture / Unknown 09/11/2024 6:48 AM TOY DESIGNER 09/11/2024 7:39 AM TOY DESIGNER Narrative [facility] - 09/11/2024 8:33 AM TOY DESIGNER The ALINITY Total PSA assay is a Chemiluminescent Microparticle Immunoassay (CMIA) for the quantitative determination of total PSA (both free PSA and PSA complexed to [id number]) in human serum. Total PSA values obtained with different assay methods, including Lau PSA assays, cannot be used interchangeably. Desmond Grubbs MD CHEMISTRY ORDERABLES Final Res ult Performing Organization Address City/[facility] Co de Phone Number [facility] [address] [place] [address] * (ABNORMAL) HEMOGLOBIN A1C W/ ESTIMATED GLUCOSE (09/11/2024 6:48 AM TOY DESIGNER) HGB-A1C 6.3(H) 4.0 - 6.0 % 09/11/2024 8:19 AM TOY DESIGNER [facility] Est Average Glucose 134.1 mg/dL 09/11/2024 8:19 AM [facility] Blood Venipuncture / Unknown 09/11/2024 6:48 AM TOY DESIGNER 09/11/2024 7:39 AM TOY DESIGNER Narrative [facility] - 09/11/2024 8:19 AM TOY DESIGNER HEMOGLOBIN A1C: DIABETIC PATIENTS: WELL-CONTROLLED: 6.2 - 7.0 INTERMEDIATE WELL-CONTROLLED: 7.0 - 9.0 POORLY-CONTROLLED: >9.0 Specimens containing greater than 5% of Hemoglobin F may result in lower than expected % HbA1C results. Desmond Grubbs MD CHEMISTRY ORDERABLES Final Res ult Performing Organization Address [facility] Co de Phone Number [facility] [address] [place] [address] * (ABNORMAL) CMP (COMPREHENSIVE METABOLIC PANEL) (09/11/2024 6:48 AM [facility]) SODIUM 138 136 - 145 mmol/L 09/11/2024 8:18 AM [facility] POTASSIUM 4.0 3.5 - 5.1 mmol/L 09/11/2024 8:18 AM [facility] CHLORIDE 105 98 - 107 mmol/L 09/11/2024 8:18 AM [facility] CO2, VENOUS 25 22 - 30 mmol/L 09/11/2024 8:18 AM [facility] ANION GAP 12.0 <18.0 mmol/L 09/11/2024 8:18 AM [facility] GLUCOSE 150(H) 70 - 99 mg/dL 09/11/2024 8:18 AM [facility] BUN 23 8 - 26 mg/dL 09/11/2024 8:18 AM [facility] CREATININE, BLOOD 1.30 0.70 - 1.30 mg/dL 09/11/2024 8:18 AM [facility] BUN/CREATININE RATIO 18 12 - 20 ratio 09/11/2024 8:18 AM [facility] TOTAL PROTEIN 7.7 6.0 - 8.0 g/dL 09/11/2024 8:18 AM [facility] ALBUMIN 4.0 3.5 - 5.0 g/dL 09/11/2024 8:18 AM [facility] A/G RATIO 1.1 1.0 - 2.2 09/11/2024 8:18 AM [facility] CALCIUM 9.4 8.7 - 10.5 mg/dL 09/11/2024 8:18 AM [facility] T BILI 0.7 0.2 - 1.2 mg/dL 09/11/2024 8:18 AM [facility] SGOT (AST) 23 <43 U/L 09/11/2024 8:18 AM [facility] SGPT (ALT) 15 <56 U/L 09/11/2024 8:18 AM TOY DESIGNER [facility] ALKALINE PHOSPHATASE 51 40 - 150 U/L 09/11/2024 8:18 AM TOY DESIGNER [facility] GFR, ESTIMATED 56(L) >=60 09/11/2024 8:18 AM TOY DESIGNER [facility] Comment: Creatinine Clearance is the preferred criteria for selecting drug dose adjustments in renally impaired patients. The GFR is provided as additional pertinent clinical information. GFR is reported in mL/min/1.73 sq m. Calculation based on the Chronic Kidney Disease Epidemiology Collaboration (CKD- EPI) equation refit without adjustment for race. GFR, EST. >60 >=60 025 8:18 AM TOY DESIGNER [facility] GFR, EST. NONAFRICAN 53(L) >=60 09/11/2024 8:18 AM TOY DESIGNER [facility] Blood Venipuncture / Unknown 09/11/2024 6:48 AM TOY DESIGNER 09/11/2024 7:39 AM TOY DESIGNER us Desmond Grubbs MD CHEMISTRY ORDERABLES Final Res ult [facility] [address] [place] [address] documented in this encounter Visit Diagnoses Diagnosis Type 1 diabetes mellitus with ketoacidosis without coma (HCC) Calculus of lower urinary tract, unspecified Mild intellectual disabilities Hyperlipidemia, unspecified Encounter for screening for malignant neoplasm of prostate Special screening for malignant neoplasm of prostate Essential (primary) hypertension Unspecified essential hypertension documented in this encounter Care Teams Marketing Planning Manager Relationship Specialty [place] [address] [place] [address] PCP - General Family Medicine 10/26/22 Kenyon Cardoso DO Gastroenterology 11/24/15 [place] [address] [place] [address] Endocrinology 11/30/20 documented as of this encounter
--- OUTSIDE RECORDS SUMMARY | 2024-09-18 08:32 | XMS_ITS | Encounter Summary ---
Author Organization [facility] Address [address] [place] [address] Phone Care Team Providers Care Cooling Tower Technician Name Role Phone Kenyon Cardoso DO Unavailable [phone] Belem Nova MD Unavailable Kahlil Casas MD Primary Care Provider Kacy Blackman MD Primary Care Provider Unavailable Encounter Details Date Type Department Care Team (Late st Contact Info) Description 07/13/2022 Lab Requisition [facility] Laboratory Services [address] [place] [address] Kahlil Casas MD [address] [place] [address] [address] [place] [address] Encounter for screening for COVID-19 [...] Associated Diagnosis Comments SARS-COV-2 BY MOLECULAR Routine 07/13/2022 12:10 PM BATCH MAKER Encounter for screening for COVID-19 documented in this encounter Results * SARS-COV-2 BY MOLECULAR (07/13/2022 12:10 PM BATCH MAKER) SARSCOV2 NOT DETECTED (Referen ce Range for this test is Not Detected ) [facility] THERMOFISHER FAST DX 07/14/2022 12:24 AM BATCH MAKER [facility] Comment:This test was perfor med by a RT-PCR method. Other No Phlebotomy Charged / Unknown 07/13/2022 12:10 PM BATCH MAKER 07/13/2022 8:26 PM BATCH MAKER Narrative [facility] - 07/14/2022 12:24 AM BATCH MAKER Authorized Fact Sheets about this test for providers and patients are available at: https://www.fda.gov/medical-devices/xxwogrgvl-ooohdlfcwd-qwuoclj-devices/emergen -us e-authorizations us Kahlil Casas MD MICROBIOLOGY - GENERAL ORDERAB LES Final Result [facility] [address] [place] [address], documented in this encounter Visit Diagnoses Diagnosis Encounter for screening for COVID-19 documented in this encounter Additional Health Concerns Infection Onset Date Last Indicated Resolved Time COVID - 19 07/06/2022 08/31/2022 09/01/2022 11:3 5 AM BATCH MAKER COVID - 19 Confirmed 08/31/2022 08/31/202209/20/ 023 12:18 AM CDT documented as of this encounter Care Teams Cooling Tower Technician Relationship Specialty Start Date End Date Kahlil Casas MD [address] [place] [address] [place] [address] PCP - General Family Medicine 05/18/22 10/25/22 Kacy Blackman MD [address] [place] [address] [place] [address] PCP - General Family Medicine 10/26/22 Kenyon Cardoso DO Gastroenterology 11/24/15 [place] [address] [place] [address] Endocrinology 11/30/20 documented as of this encounter
--- OUTSIDE RECORDS SUMMARY | 2024-09-18 08:32 | XMS_ITS | Encounter Summary ---
Author Organization [facility] Address [address] [place] [address] Phone Care Team Providers Care Fitness Instructor Name Role Phone Faith Lai MD Primary Care Provider Kenyon Cardoso DO Unavailable [phone] Belem Nova MD Unavailable Provider, Unknown Primary Care Provider Unavaila Kahlil Bell MD Primary Care Provider Kacy Blackman MD Primary Care Provider Unavailable Reason for Visit * Reason Comments Medication Refill Encounter Details Date Type Department Care Team (Late st Contact Info) Description 03/07/2020 Refill [facility] - Primary Care - [place] [address] [place] [id number] Faith Lai MD [address] [place], [place] [id number] Medication Refill Social History Tobacco Use Types Packs/Day Years Used Date Smoking Tobacco: Former Cigarettes 1 12 Smokeless Tobacco: Never Comments:2013 Alcohol Use Standard [...] documented as of this encounter Visit Diagnoses Not on filedocumented in this encounter Additional Health Concerns Infection Onset Date Last Indicated Resolved Time COVID - 19 03/31/2021 05/18/2022 05/28/2022 12:1 6 AM ASSOCIATE FACULTY COVID - 19 07/06/2022 08/31/2022 09/01/2022 11:3 5 AM ASSOCIATE FACULTY COVID - 19 Confirmed 08/31/2022 08/31/2022 023 12:18 AM CDT documented as of this encounter Care Teams Fitness Instructor Relationship Specialty Start Date End Date Faith Lai MD PCP - General Family Medicine 09/08/15 12/02/20 Provider, Unknown UNKNOWN PCP - General 03/31/21 05/17/22 Kahlil Casas MD [address] [place] [address] [place] [address] PCP - General Family Medicine 05/18/22 10/25/22 Kacy Blackman MD [address] [place] [address] [place] [address] PCP - General Family Medicine 10/26/22 Kenyon Cardoso DO Gastroenterology 11/24/15 [place] [address] [place] [address] Endocrinology 11/30/20 documented as of this encounter
--- OUTSIDE RECORDS SUMMARY | 2024-09-18 08:32 | XMS_ITS | Encounter Summary ---
Author Organization [facility] Address [address] [place] [address] Phone Care Team Providers Care Gymnastic Coach Name Role Phone Kenyon Cardoso DO Unavailable [phone] Belem Nova MD Unavailable Kahlil Casas MD Primary Care Provider [phone] Kacy Blackman MD Primary Care Provider Unavailable Reason for Visit * Auth/Cert Specialty Diagnoses / Procedures Referred By Ramiro johnson Referred To Contact Diagnoses HISTORY OF ADENOMATOUS COLONIC POLYPS Procedures COLONOSCOPY Shona Smallwood MD [address] [place] [address] Phone: tel: fax: Referral ID Status Reason Start Date Expiration Date Visits Re quested Visits Authorized [id number] 1 1 Encounter Details Date Type Department Care Team (Late st Contact Info) Description 05/18/2022 Lab Requisition [facility] Laboratory Services 1 [place] [id number] Kahlil Casas MD [address] [facility] [address] [place] [address] Encounter for screening for COVID-19 Social History Tobacco Use Types Packs/Day Years Used Date Smoking Tobacco: Former Cigarettes 1 12 2 002 - 2013 Smokeless Tobacco: Never Comments:2014 Alcohol Use Standard [...] 19 03/31/2021 05/18/2022 05/28/2022 12:1 6 AM RECORDING CLERK COVID - 19 07/06/2022 08/31/2022 09/01/2022 11:3 5 AM RECORDING CLERK COVID - 19 Confirmed 08/31/2022 08/31/2022 023 12:18 AM CDT documented as of this encounter Care Teams Gymnastic Coach Relationship Specialty Start Date End Date Kahlil Casas MD [address] [place] [address] [place] [address] PCP - General Family Medicine 05/18/22 10/25/22 Kacy Blackman MD [address] [place] [address] [place] [address] PCP - General Family Medicine 10/26/22 Kenyon Cardoso DO Gastroenterology 11/24/15 [place] [address] [place] [address] Endocrinology 11/30/20 documented as of this encounter
--- OUTSIDE RECORDS SUMMARY | 2024-09-18 08:33 | XMS_ITS | Encounter Summary ---
Author Organization [facility] Address [address] [place] [address] Phone Care Team Providers Care Shell Coremaker Name Role Phone Kenyon Cardoso DO Unavailable [phone] Belem Nova MD Unavailable Provider, Unknown Primary Care Provider Unavaila Kahlil Bell MD Primary Care Provider [phone] Kacy Blackman MD Primary Care Provider Unavailable Encounter Details Date Type Department Care Team (Late st Contact Info) Description 11/24/2021 Lab Requisition [facility] Services 1 [place] [address] Kahlil Casas MD [address] [place] [address] [address] [place] [address] Encounter for screening for COVID-19 [...] Associated Diagnosis Comments SARS-COV-2 BY MOLECULAR Routine 11/24/2021 9:24 AM CDT Encounter for screening for COVID-19 documented in this encounter Results * SARS-COV-2 BY MOLECULAR (11/24/2021 9:24 AM CDT) SARSCOV2 NOT DETECTED (Referen ce Range for this test is Not Detected ) [facility] THERMOFISHER FAST DX 11/25/2021 6:32 PM CDT [facility] Comment:This test was perfor med by a RT-PCR method. Other Non-Phlebotomy Collection / Unknown 11/24/2021 9:24 AM CDT 11/24/2021 11:06 AM CDT Narrative [facility] - 11/25/2021 6:32 PM CDT Authorized Fact Sheets about this test for providers and patients are available at: https://www.fda.gov/medical-devices/pdcafviof-kkhzuyfzvy-zantkol-devices/emergen cy-us e-authorizations us Kahlil Casas MD MICROBIOLOGY - GENERAL ORDERAB LES Final Result [facility] [address] [place] [address], documented in this encounter Visit Diagnoses Diagnosis Encounter for screening for COVID-19 documented in this encounter Additional Health Concerns Infection Onset Date Last Indicated Resolved Time COVID - 19 03/31/2021 05/18/2022 05/28/2022 12:1 6 AM CARPET INSTALLER HELPER COVID - 19 07/06/2022 08/31/2022 09/01/2022 11:3 5 AM CARPET INSTALLER HELPER COVID - 19 Confirmed 08/31/2022 08/31/202209/20/ 023 12:18 AM CDT documented as of this encounter Care Teams Shell Coremaker Relationship Specialty Start Date End Date Provider, Unknown UNKNOWN PCP - General 03/31/21 05/17/22 Kahlil Casas MD [address] [place] [address] [address] [place] [address] PCP - General Family Medicine 05/18/22 10/25/22 Kacy Blackman MD [address] [facility] [address] [place] [address] PCP - General Family Medicine 10/26/22 Kenyon Cardoso DO Gastroenterology 11/24/15 [place] [address] [place] [address] Endocrinology 11/30/20 documented as of this encounter
--- OUTSIDE RECORDS SUMMARY | 2024-09-18 08:33 | XMS_ITS | Encounter Summary ---
Author Organization [facility] Address [address] [place] [address] Phone Care Team Providers Care Patient Appointment Coordinator Name Role Phone Kenyon Cardoso DO Unavailable [phone] Belem Nova MD Unavailable Provider, Unknown Primary Care Provider Unavaila Kahlil Bell MD Primary Care Provider Kacy Blackman MD Primary Care Provider Unavailable Encounter Details Date Type Department Care Team (Late st Contact Info) Description 12/08/2021 [facility] 1 [place] [address] Kahlil Casas MD [address] [place] [address] [address] [place] [address] Encounter for screening for COVID-19 [...] Associated Diagnosis Comments SARS-COV-2 BY MOLECULAR Routine 12/08/2021 9:07 AM CDT Encounter for screening for COVID-19 documented in this encounter Results * SARS-COV-2 BY MOLECULAR (12/08/2021 9:07 AM CDT) SARSCOV2 NOT DETECTED (Referen ce Range for this test is Not Detected ) [facility] THERMOFISHER FAST DX 12/09/2021 10:25 AM CDT [facility] Comment:This test was perfor med by a RT-PCR method. Other Non-Phlebotomy Collection / Unknown 12/08/2021 9:07 AM CDT 12/08/2021 12:01 PM CDT Narrative [facility] - 12/09/2021 10:25 AM CDT Authorized Fact Sheets about this test for providers and patients are available at: https://www.fda.gov/medical-devices/hmsgbpxtn-tfbthyaglc-onvbblo-devices/emergen cy-us e-authorizations us Kahlil Casas MD MICROBIOLOGY - GENERAL ORDERAB LES Final Result [facility] [address] [place] [address], documented in this encounter Visit Diagnoses Diagnosis Encounter for screening for COVID-19 documented in this encounter Additional Health Concerns Infection Onset Date Last Indicated Resolved Time COVID - 19 03/31/2021 05/18/2022 05/28/2022 12:1 6 AM VP GENETIC COVID - 19 07/06/2022 08/31/2022 09/01/2022 11:3 5 AM VP GENETIC COVID - 19 Confirmed 08/31/2022 08/31/2022 023 12:18 AM CDT documented as of this encounter Care Teams Patient Appointment Coordinator Relationship Specialty Start Date End Date Provider, Unknown UNKNOWN PCP - General 03/31/21 05/17/22 Kahlil Casas MD [address] [place] [address] [address] [place] [address] PCP - General Family Medicine 05/18/22 10/25/22 Kacy Blackman MD [address] [facility] [address] [place] [address] PCP - General Family Medicine 10/26/22 Kenyon Cardoso DO Gastroenterology 11/24/15 [place] [address] [place] [address] Endocrinology 11/30/20 documented as of this encounter
--- OUTSIDE RECORDS SUMMARY | 2024-09-18 08:33 | XMS_ITS | Encounter Summary ---
Author Organization [facility] Address [address] [place] [address] Phone Care Team Providers Care Peanut Sorter Name Role Phone Kenyon Cardoso DO Unavailable [phone] Belem Nova MD Unavailable Provider, Unknown Primary Care Provider Unavaila Kahlil Bell MD Primary Care Provider Kacy Blackman MD Primary Care Provider Unavailable Encounter Details Date Type Department Care Team (Late st Contact Info) Description 01/19/2022 [facility] 1 [place] [address] Kahlil Casas MD [address] [place] [address] [address] [place] [address] Encounter for screening for COVID-19 [...] Associated Diagnosis Comments SARS-COV-2 BY MOLECULAR Routine 01/19/2022 8:19 AM CDT Encounter for screening for COVID-19 documented in this encounter Results * SARS-COV-2 BY MOLECULAR (01/19/2022 8:19 AM CDT) SARSCOV2 NOT DETECTED (Referen ce Range for this test is Not Detected ) [facility] FAST DX 01/20/2022 10:49 AM CDT [facility] Comment:This test was perfor med by a RT-PCR method. Other Non-Phlebotomy Collection / Unknown 01/19/2022 8:19 AM CDT 01/19/2022 9:44 AM CDT Narrative [facility] - 01/20/2022 10:49 AM CDT Authorized Fact Sheets about this test for providers and patients are available at: https://www.fda.gov/medical-devices/nmmuelpus-yvwnfjlosm-axmtijn-devices/emergen cy-us e-authorizations us Kahlil Casas MD MICROBIOLOGY - GENERAL ORDERAB LES Final Result [facility] [address] [place] [address], documented in this encounter Visit Diagnoses Diagnosis Encounter for screening for COVID-19 documented in this encounter Additional Health Concerns Infection Onset Date Last Indicated Resolved Time COVID - 19 03/31/2021 05/18/2022 05/28/2022 12:1 6 AM BENEFITS CLERK COVID - 19 07/06/2022 08/31/2022 09/01/2022 11:3 5 AM BENEFITS CLERK COVID - 19 Confirmed 08/31/2022 08/31/2022 023 12:18 AM CDT documented as of this encounter Care Teams Peanut Sorter Relationship Specialty Start Date End Date Provider, Unknown UNKNOWN PCP - General 03/31/21 05/17/22 Kahlil Casas MD [address] [place] [address] [address] [place] [address] PCP - General Family Medicine 05/18/22 10/25/22 Kacy Blackman MD [address] [facility] [address] [place] [address] PCP - General Family Medicine 10/26/22 Kenyon Cardoso DO Gastroenterology 11/24/15 [place] [address] [place] [address] Endocrinology 11/30/20 documented as of this encounter
--- OUTSIDE RECORDS SUMMARY | 2024-09-18 08:33 | XMS_ITS | Encounter Summary ---
Author Organization [facility] Address [address] [place] [address] Phone Care Team Providers Care Front Desk Name Role Phone Kenyon Cardoso DO Unavailable [phone] Belem Nova MD Unavailable Provider, Unknown Primary Care Provider Unavaila Kahlil Bell MD Primary Care Provider [phone] Kacy Blackman MD Primary Care Provider Unavailable Encounter Details Date Type Department Care Team (Late st Contact Info) Description 01/05/2022 [facility] 1 [place] [address] Kahlil Casas MD [address] [place] [address] [address] [place] [address] Encounter for screening for [...] Associated Diagnosis Comments SARS-COV-2 BY MOLECULAR Routine 01/05/2022 8:32 AM CDT Encounter for screening for COVID-19 documented in this encounter Results * SARS-COV-2 BY MOLECULAR (01/05/2022 8:32 AM CDT) SARSCOV2 NOT DETECTED (Referen ce Range for this test is Not Detected ) [facility]MOF[facility] FAST DX 01/05/2022 11:45 PM CDT [facility] Comment:This test was perfor med by a RT-PCR method. Other Non-Phlebotomy Collection / Unknown 01/05/2022 8:32 AM CDT 01/05/2022 9:19 AM CDT Narrative [facility] - 01/05/2022 11:45 PM CDT Authorized Fact Sheets about this test for providers and patients are available at: https://www.fda.gov/medical-devices/csfgmtxqj-yzfruqtaxx-pcjznad-devices/emergen cy-us e-authorizations us Kahlil Casas MD MICROBIOLOGY - GENERAL ORDERAB LES Final Result [facility] [address] [place] [address], documented in this encounter Visit Diagnoses Diagnosis Encounter for screening for COVID-19 documented in this encounter Additional Health Concerns Infection Onset Date Last Indicated Resolved Time COVID - 19 03/31/2021 05/18/2022 05/28/2022 12:1 6 AM INTELLIGENCE SPECIALIST COVID - 19 07/06/2022 08/31/2022 09/01/2022 11:3 5 AM INTELLIGENCE SPECIALIST COVID - 19 Confirmed 08/31/2022 08/31/202209/20/ 023 12:18 AM CDT documented as of this encounter Care Teams Front Desk Relationship Specialty Start Date End Date Provider, Unknown UNKNOWN PCP - General 03/31/21 05/17/22 Kahlil Casas MD [address] [place] [address] [address] [place] [address] PCP - General Family Medicine 05/18/22 10/25/22 Kacy Blackman MD [address] [facility] [address] [place] [address] PCP - General Family Medicine 10/26/22 Kenyon Cardoso DO Gastroenterology 11/24/15 [place] [address] [place] [address] Endocrinology 11/30/20 documented as of this encounter
--- OUTSIDE RECORDS SUMMARY | 2024-09-18 08:33 | XMS_ITS | Encounter Summary ---
Author Organization [facility] Address [address] [place] [address] Phone Care Team Providers Care Sliver Chopper Name Role Phone Kenyon Cardoso DO Unavailable [phone] Belem Nova MD Unavailable Provider, Unknown Primary Care Provider Unavaila Kahlil Bell MD Primary Care Provider Kacy Blackman MD Primary Care Provider Unavailable Encounter Details Date Type Department Care Team (Late st Contact Info) Description 12/22/2021 [facility] 1 [place] [address] Kahlil Casas MD [address] [place] [address] [address] [place] [address] Encounter for screening for COVID-19 [...] Associated Diagnosis Comments SARS-COV-2 BY MOLECULAR Routine 12/22/2021 8:43 AM CDT Encounter for screening for COVID-19 documented in this encounter Results * SARS-COV-2 BY MOLECULAR (12/22/2021 8:43 AM CDT) SARSCOV2 NOT DETECTED (Referen ce Range for this test is Not Detected ) [facility]ERMOF[facility] FAST DX 12/23/2021 8:31 AM CDT [facility] Comment:This test was perfor med by a RT-PCR method. Other Non-Phlebotomy Collection / Unknown 12/22/2021 8:43 AM CDT 12/22/2021 9:28 AM CDT Narrative [facility] - 12/23/2021 8:31 AM CDT Authorized Fact Sheets about this test for providers and patients are available at: https://www.fda.gov/medical-devices/gnkvhtjwm-jgdmuwixjj-wtjpzcr-devices/emergen cy-us e-authorizations us Kahlil Casas MD MICROBIOLOGY - GENERAL ORDERAB LES Final Result [facility] [address] [place] [address], documented in this encounter Visit Diagnoses Diagnosis Encounter for screening for COVID-19 documented in this encounter Additional Health Concerns Infection Onset Date Last Indicated Resolved Time COVID - 19 03/31/2021 05/18/2022 05/28/2022 12:1 6 AM RETAIL TEAM MEMBER COVID - 19 07/06/2022 08/31/2022 09/01/2022 11:3 5 AM RETAIL TEAM MEMBER COVID - 19 Confirmed 08/31/2022 08/31/2022 023 12:18 AM CDT documented as of this encounter Care Teams Sliver Chopper Relationship Specialty Start Date End Date Provider, Unknown UNKNOWN PCP - General 03/31/21 05/17/22 Kahlil Casas MD [address] [place] [address] [address] [place] [address] PCP - General Family Medicine 05/18/22 10/25/22 Kacy Blackman MD [address] [facility] [address] [place] [address] PCP - General Family Medicine 10/26/22 Kenyon Cardoso DO Gastroenterology 11/24/15 [place] [address] [place] [address] Endocrinology 11/30/20 documented as of this encounter
--- OUTSIDE RECORDS SUMMARY | 2024-09-18 08:33 | XMS_ITS | Encounter Summary ---
Author Organization [facility] Address [address] [place] [address] Phone Care Team Providers Care Security Intern Name Role Phone Kenyon Cardoso DO Unavailable [phone] Belem Nova MD Unavailable Provider, Unknown Primary Care Provider Unavaila Kahlil Bell MD Primary Care Provider Kacy Blackman MD Primary Care Provider Unavailable Encounter Details Date Type Department Care Team (Late st Contact Info) Description 12/01/2021 [facility] 1 [place] [address] Kahlil Casas MD [address] [place] [address] [address] [place] [address] Encounter for screening for COVID-19 [...] Associated Diagnosis Comments SARS-COV-2 BY MOLECULAR Routine 12/01/2021 8:54 AM CDT Encounter for screening for COVID-19 documented in this encounter Results * SARS-COV-2 BY MOLECULAR (12/01/2021 8:54 AM CDT) SARSCOV2 NOT DETECTED (Referen ce Range for this test is Not Detected ) [facility] FAST DX 12/02/2021 12:49 AM CDT [facility] Comment:This test was perfor med by a RT-PCR method. Other Venipuncture / Unknown 12/01/2021 8:54 AM CDT 12/01/2021 1:10 PM CDT Narrative [facility] - 12/02/2021 12:49 AM CDT Authorized Fact Sheets about this test for providers and patients are available at: https://www.fda.gov/medical-devices/olmhzbxxg-hmfigxrdvm-myxvsmq-devices/emergen -us e-authorizations us Kahlil Casas MD MICROBIOLOGY - GENERAL ORDERAB LES Final Result [facility] [address] [place] [address], documented in this encounter Visit Diagnoses Diagnosis Encounter for screening for COVID-19 documented in this encounter Additional Health Concerns Infection Onset Date Last Indicated Resolved Time COVID - 19 03/31/2021 05/18/2022 05/28/2022 12:1 6 AM INSPECTOR PACKER COVID - 19 07/06/2022 08/31/2022 09/01/2022 11:3 5 AM INSPECTOR PACKER COVID - 19 Confirmed 08/31/2022 08/31/2022 023 12:18 AM CDT documented as of this encounter Care Teams Security Intern Relationship Specialty Start Date End Date Provider, Unknown UNKNOWN PCP - General 03/31/21 05/17/22 Kahlil Casas MD [address] [facility] [address] [place] [address] PCP - General Family Medicine 05/18/22 10/25/22 Kacy Blackman MD [address] [facility] [place] [address] PCP - General Family Medicine 10/26/22 Kenyon Cardoso DO Gastroenterology 11/24/15 [place] [address] [place] [address] Endocrinology 11/30/20 documented as of this encounter
--- OUTSIDE RECORDS SUMMARY | 2024-09-18 08:33 | XMS_ITS | Encounter Summary ---
Author Organization [facility] Address [address] [place] [address] Phone Care Team Providers Care Independent Insurance Adjuster Name Role Phone Kenyon Cardoso DO Unavailable [phone] Belem Nova MD Unavailable Provider, Unknown Primary Care Provider Unavaila Kahlil Bell MD Primary Care Provider Kacy Blackman MD Primary Care Provider Unavailable Encounter Details Date Type Department Care Team (Late st Contact Info) Description 01/26/2022 [facility] 1 [place] [address] Kahlil Casas MD [address] [place] [address] [address] [place] [address] Encounter for screening for COVID-19 [...] Associated Diagnosis Comments SARS-COV-2 BY MOLECULAR Routine 01/26/2022 8:26 AM CDT Encounter for screening for COVID-19 documented in this encounter Results * SARS-COV-2 BY MOLECULAR (01/26/2022 8:26 AM CDT) SARSCOV2 NOT DETECTED (Referen ce Range for this test is Not Detected ) [facility] THERMOFISHER FAST DX 01/27/2022 7:37 AM CDT [facility] Comment:This test was perfor med by a RT-PCR method. Other Non-Phlebotomy Collection / Unknown 01/26/2022 8:26 AM CDT 01/26/2022 1:37 PM CDT Narrative [facility] - 01/27/2022 7:37 AM CDT Authorized Fact Sheets about this test for providers and patients are available at: https://www.fda.gov/medical-devices/uowcszhrp-betbeiksis-tvtjjbk-devices/emergen cy-us e-authorizations us Kahlil Casas MD MICROBIOLOGY - GENERAL ORDERAB LES Final Result [facility] [address] [place] [address], documented in this encounter Visit Diagnoses Diagnosis Encounter for screening for COVID-19 documented in this encounter Additional Health Concerns Infection Onset Date Last Indicated Resolved Time COVID - 19 03/31/2021 05/18/2022 05/28/2022 12:1 6 AM WOOD AND HARDWARE OUTFITTER COVID - 19 07/06/2022 08/31/2022 09/01/2022 11:3 5 AM WOOD AND HARDWARE OUTFITTER COVID - 19 Confirmed 08/31/2022 08/31/202209/20/ 023 12:18 AM CDT documented as of this encounter Care Teams Independent Insurance Adjuster Relationship Specialty Start Date End Date Provider, Unknown UNKNOWN PCP - General 03/31/21 05/17/22 Kahlil Casas MD [address] [place] [address] [address] [place] [address] PCP - General Family Medicine 05/18/22 10/25/22 Kacy Blackman MD 4 [facility] [address] [place] [address] PCP - General Family Medicine 10/26/22 Kenyon Cardoso DO Gastroenterology 11/24/15 [place] [address] [place] [address] Endocrinology 11/30/20 documented as of this encounter
--- OUTSIDE RECORDS SUMMARY | 2024-09-18 08:33 | XMS_ITS | Encounter Summary ---
Author Organization [facility] Address [address] [place] [address] Phone Care Team Providers Care Child Care Associate Name Role Phone Kenyon Cardoso DO Unavailable [phone] Belem Nova MD Unavailable Provider, Unknown Primary Care Provider Unavaila Kahlil Bell MD Primary Care Provider Kacy Blackman MD Primary Care Provider Unavailable Encounter Details Date Type Department Care Team (Late st Contact Info) Description 11/03/2021 [facility] 1 [place] [address] Kahlil Casas MD [address] [place] [address] [address] [place] [address] Encounter for screening for [...] Associated Diagnosis Comments SARS-COV-2 BY MOLECULAR Routine 11/03/2021 9:37 AM CDT Encounter for screening for COVID-19 documented in this encounter Results * SARS-COV-2 BY MOLECULAR (11/03/2021 9:37 AM CDT) SARSCOV2 NOT DETECTED (Referen ce Range for this test is Not Detected ) [facility] THERMOFISHER FAST DX 11/04/2021 11:37 AM CDT [facility] Comment:This test was perfor med by a RT-PCR method. Other Non-Phlebotomy Collection / Unknown 11/03/2021 9:37 AM CDT 11/03/2021 2:25 PM CDT Narrative [facility] - 11/04/2021 11:37 AM CDT Authorized Fact Sheets about this test for providers and patients are available at: https://www.fda.gov/medical-devices/xomsctuyf-geentpwzpk-srkjkxc-devices/emergen cy-us e-authorizations us Kahlil Casas MD MICROBIOLOGY - GENERAL ORDERAB LES Final Result [facility] [address] [place] [address], documented in this encounter Visit Diagnoses Diagnosis Encounter for screening for COVID-19 documented in this encounter Additional Health Concerns Infection Onset Date Last Indicated Resolved Time COVID - 19 03/31/2021 05/18/2022 05/28/2022 12:1 6 AM VESSEL CREW 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 COVID - 19 07/06/2022 08/31/2022 09/01/2022 11:3 5 AM VESSEL CREW MEMBER COVID - 19 Confirmed 08/31/2022 08/31/202209/20/ 023 12:18 AM CDT documented as of this encounter Care Teams Child Care Associate Relationship Specialty Start Date End Date Provider, Unknown UNKNOWN PCP - General 03/31/21 05/17/22 Kahlil Casas MD [address] [place] [address] [address] [place] [address] PCP - General Family Medicine 05/18/22 10/25/22 Kacy Blackman MD [address] [facility] [address] [place] [address] PCP - General Family Medicine 10/26/22 Kenyon Cardoso DO Gastroenterology 11/24/15 [place] [address] [place] [address] Endocrinology 11/30/20 documented as of this encounter
--- OUTSIDE RECORDS SUMMARY | 2024-09-18 08:33 | XMS_ITS | Encounter Summary ---
Author Organization [facility] Address [address] [place] [address] Phone Care Team Providers Care Cosmetics Presser Name Role Phone Kacy Blackman MD Primary Care Provider [phone] Abbi Monique NP Unavailable [phone] Quita Zapien NP Primary Care Provider [phone] Desmond Grubbs MD Primary Care Provider + Encounter Details Date Type Department Care Team (Late st Contact Info) Description 02/23/2023 Orders Only [facility] [address] [place] [address] Scanning, Provider Social History Tobacco [...] on file 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 Gender Identity Not on file Sexual Orientation Not on file documented as of this encounter Plan of Treatment Not on file documented as of this encounter Procedures Procedure Name Priority Date/Time Associated Diagnosis Comments SCAN - LABS 02/23/2023 documented in this encounter Results * SCAN - LABS (02/23/2023) us Provider Scanning Final Result documented in this encounter Visit Diagnoses Not on filedocumented in this encounter Care Teams Cosmetics Presser Relationship Specialty Start Date End Date Kacy Blackman MD PCP - General Family Practice 04/19/22 12/28/23 Quita Zapien NP [address] [facility] [address] [place] [address] PCP - General Buddhist Monk 12/29/23 08/18/24 Desmond Grubbs MD [address] [facility] [address] [place] [address] PCP - General Family Medicine 08/19/24 [place] [address] [place] [address] Nurse Practitioner Endocrinology Diabetes & Metabolism 12/15/23 documented as of this encounter
--- OUTSIDE RECORDS SUMMARY | 2024-09-18 08:33 | XMS_ITS | Encounter Summary ---
Author Organization [facility] Address [address] [place] [address] Care Team Providers Care Marketing Finance Specialist Name Role Phone Kacy Blackman MD Primary Care Provider + [phone] Abbi Monique DIRECTOR OF DEMENTIA OPERATIONS Unavailable [phone] Quita Zapien NP Primary Care Provider + [phone] Desmond Grubbs MD Primary Care Provider + Encounter Details Date Type Department Care Team (Late st Contact Info) Description 09/20/2023 Orders Only [facility] [address] [place] [id number] Scanning, Provider Social History Tobacco Use Types Packs/Day Years Used Date Smoking Tobacco: Never Smokeless Tobacco: Never Alcohol Use Standard Drinks/Week Comments No 0 (1 standard drink = 0.6 oz pur e alcohol) PHQ-2 Answer Date Recorded PHQ-2 Total Score (If total score is 3 or more points, staff should administer the PHQ-9) 0 06/09/2023 Sex and Gender Information Value Date Recorded Sex Assigned at Not on file 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 Gender Identity Not on file Sexual Orientation Not on file documented as of this encounter Plan of Treatment Not on file documented as of this encounter Procedures Procedure Name Priority Date/Time Associated Diagnosis Comments SCAN - RADIOLOGY/IMAGING 09/20/2023 documented in this encounter Results * SCAN - RADIOLOGY/IMAGING (09/20/2023) Anatomical Region Laterality Modality Other us Provider Scanning Final Result documented in this encounter Visit Diagnoses Not on filedocumented in this encounter Care Teams Marketing Finance Specialist Relationship Specialty Start Date End Date Kacy Blackman MD PCP - General Family Practice 04/19/22 12/28/23 Quita Zapien NP [address] [facility] [address] [place] [address] PCP - General Tension Worker 12/29/23 08/18/24 Desmond Grubbs MD [address] [facility] [address] [place] [address] PCP - General Family Medicine 08/19/24 [place] [address] [place] [address] Nurse Practitioner Endocrinology Diabetes & Metabolism 12/15/23 documented as of this encounter
--- OUTSIDE RECORDS SUMMARY | 2024-09-18 08:33 | XMS_ITS | Encounter Summary ---
Author Organization [facility] Address [address] [place] [address] Phone Care Team Providers Care Sagger Filler Name Role Phone Kenyon Cardoso DO Unavailable [phone] Belem Nova MD Unavailable Provider, Unknown Primary Care Provider Unavaila Kahlil Bell MD Primary Care Provider Kacy Blackman MD Primary Care Provider Unavailable Encounter Details Date Type Department Care Team (Late st Contact Info) Description 01/12/2022 [facility] 1 [place] [address] Kahlil Casas MD [address] [place] [address] [address] [place] [address] Encounter for screening for COVID-19 [...] Associated Diagnosis Comments SARS-COV-2 BY MOLECULAR Routine 01/12/2022 8:24 AM CDT Encounter for screening for COVID-19 documented in this encounter Results * SARS-COV-2 BY MOLECULAR (01/12/2022 8:24 AM CDT) SARSCOV2 NOT DETECTED (Referen ce Range for this test is Not Detected ) [facility] THERMOFISHER FAST DX 01/13/2022 5:59 AM CDT [facility] Comment:This test was perfor med by a RT-PCR method. Other Non-Phlebotomy Collection / Unknown 01/12/2022 8:24 AM CDT 01/12/2022 11:07 AM CDT [facility]ative [facility] 01/13/20[facility] 5:59 AM CDT Authorized Fact Sheets about this test for providers and patients are available at: https://www.fda.gov/medical-devices/kxzsbfowk-uzoxdopfhg-qbubtbo-devices/emergen cy-us e-authorizations us Kahlil Casas MD MICROBIOLOGY - GENERAL ORDERAB LES Final Result [facility] [address] [place] [address], documented in this encounter Visit Diagnoses Diagnosis Encounter for screening for COVID-19 documented in this encounter Additional Health Concerns Infection Onset Date Last Indicated Resolved Time COVID - 19 03/31/2021 05/18/2022 05/28/2022 12:1 6 AM COMMUNICATIONS WRITER COVID - 19 07/06/2022 08/31/2022 09/01/2022 11:3 5 AM COMMUNICATIONS WRITER COVID - 19 Confirmed 08/31/2022 08/31/202209/20/ 023 12:18 AM CDT documented as of this encounter Care Teams Sagger Filler Relationship Specialty Start Date End Date Provider, Unknown UNKNOWN PCP - General 03/31/21 05/17/22 Kahlil Casas MD [address] [place] [address] [address] [place] [address] PCP - General Family Medicine 05/18/22 10/25/22 Kacy Blackman MD [address] [facility] [address] [place] [address] PCP - General Family Medicine 10/26/22 Kenyon Cardoso DO Gastroenterology 11/24/15 [place] [address] [place] [address] Endocrinology 11/30/20 documented as of this encounter
--- OUTSIDE RECORDS SUMMARY | 2024-09-18 08:33 | XMS_ITS | Encounter Summary ---
Author Organization [facility] Address [address] [place] [address] Phone Care Team Providers Care Rail Crew Member Name Role Phone Kenyon Cardoso DO Unavailable [phone] Belem Nova MD Unavailable Provider, Unknown Primary Care Provider Unavaila Kahlil Bell MD Primary Care Provider Kacy Blackman MD Primary Care Provider Unavailable Encounter Details Date Type Department Care Team (Late st Contact Info) Description 12/29/2021 [facility] [address] [place] [address] Kahlil Casas MD [address] [place] [address] [address] [place] [address] Encounter for screening for COVID-19 [...] Associated Diagnosis Comments SARS-COV-2 BY MOLECULAR Routine 12/29/2021 8:29 AM CDT Encounter for screening for COVID-19 documented in this encounter Results * SARS-COV-2 BY MOLECULAR (12/29/2021 8:29 AM CDT) SARSCOV2 NOT DETECTED (Referen ce Range for this test is Not Detected ) [facility] THERMOFISHER FAST DX 12/30/2021 6:17 AM CDT [facility] Comment:This test was perfor med by a RT-PCR method. Other Non-Phlebotomy Collection / Unknown 12/29/2021 8:29 AM CDT 12/29/2021 9:34 AM CDT Narrative [facility] - 12/30/2021 6:17 AM CDT Authorized Fact Sheets about this test for providers and patients are available at: https://www.fda.gov/medical-devices/cvadlynmr-tqbinelugl-ywcwpqr-devices/emergen cy-us e-authorizations us Kahlil Casas MD MICROBIOLOGY - GENERAL ORDERAB LES Final Result [facility] [address] [place] [address], documented in this encounter Visit Diagnoses Diagnosis Encounter for screening for COVID-19 documented in this encounter Additional Health Concerns Infection Onset Date Last Indicated Resolved Time COVID - 19 03/31/2021 05/18/2022 05/28/2022 12:1 6 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 COVID - 19 07/06/2022 08/31/2022 09/01/2022 11:3 5 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 COVID - 19 Confirmed 08/31/2022 08/31/202209/20/ 023 12:18 AM CDT documented as of this encounter Care Teams Rail Crew Member Relationship Specialty Start Date End Date Provider, Unknown UNKNOWN PCP - General 03/31/21 05/17/22 Kahlil Casas MD [address] [place] [address] [address] [place] [address] PCP - General Family Medicine 05/18/22 10/25/22 Kacy Blackman MD [address] [facility] [place] [address] [place] [address] PCP - General Family Medicine 10/26/22 Kenyon Cardoso DO Gastroenterology 11/24/15 [place] [address] [place] [address] Endocrinology 11/30/20 documented as of this encounter
--- OUTSIDE RECORDS SUMMARY | 2024-09-18 08:33 | XMS_ITS | Encounter Summary ---
Author Organization [facility] Address [address] [place] [address] Phone Care Team Providers Care Injection Specialist Name Role Phone Kenyon Cardoso DO Unavailable [phone] Belem Nova MD Unavailable Provider, Unknown Primary Care Provider Unavaila Kahlil Bell MD Primary Care Provider [phone] Kacy Blackman MD Primary Care Provider Unavailable Encounter Details Date Type Department Care Team (Late st Contact Info) Description 11/17/[address] [facility] [address] [place] [address] Kahlil Casas MD [address] [place] [address] [address] [place] [address] Encounter for screening for COVID-19 [...] Associated Diagnosis Comments SARS-COV-2 BY MOLECULAR Routine 11/17/2021 9:19 AM CDT Encounter for screening for COVID-19 documented in this encounter Results * SARS-COV-2 BY MOLECULAR (11/17/2021 9:19 AM CDT) SARSCOV2 NOT DETECTED (Referen ce Range for this test is Not Detected ) [facility] THERMOFISHER FAST DX 11/18/2021 10:12 AM CDT [facility] Comment:This test was perfor med by a RT-PCR method. Other Non-Phlebotomy Collection / Unknown 11/17/2021 9:19 AM CDT 11/17/2021 11:56 AM CDT Narrative [facility] - 11/18/2021 10:12 AM CDT Authorized Fact Sheets about this test for providers and patients are available at: https://www.fda.gov/medical-devices/sgzvyxlir-dqhoxosdbz-zjlujgt-devices/emergen cy-us e-authorizations us Kahlil Casas MD MICROBIOLOGY - GENERAL ORDERAB LES Final Result [facility] [address] [place] [address], documented in this encounter Visit Diagnoses Diagnosis Encounter for screening for COVID-19 documented in this encounter Additional Health Concerns Infection Onset Date Last Indicated Resolved Time COVID - 19 03/31/2021 05/18/2022 05/28/2022 12:1 6 AM RIVETING MACHINE OPERATOR TAPE CONTROL COVID - 19 07/06/2022 08/31/2022 09/01/2022 11:3 5 AM RIVETING MACHINE OPERATOR TAPE CONTROL COVID - 19 Confirmed 08/31/2022 08/31/2022 023 12:18 AM CDT documented as of this encounter Care Teams Injection Specialist Relationship Specialty Start Date End Date Provider, Unknown UNKNOWN PCP - General 03/31/21 05/17/22 Kahlil Casas MD [address] [place] [address] [address] [place] [address] PCP - General Family Medicine 05/18/22 10/25/22 Kacy Blackman MD [address] [facility] [address] [place] [address] PCP - General Family Medicine 10/26/22 Kenyon Cardoso DO Gastroenterology 11/24/15 [place] [address] [place] [address] Endocrinology 11/30/20 documented as of this encounter
--- OUTSIDE RECORDS SUMMARY | 2024-09-18 08:33 | XMS_ITS | Encounter Summary ---
Author Organization [facility] Address [address] [place] [address] Phone Care Team Providers Care Manufacturing Clerk Name Role Phone Kenyon Cardoso DO Unavailable [phone] Belem Nova MD Unavailable Provider, Unknown Primary Care Provider Unavaila Kahlil Bell MD Primary Care Provider [phone] Kacy Blackman MD Primary Care Provider Unavailable Encounter Details Date Type Department Care Team (Late st Contact Info) Description 12/15/2021 [facility] [address] [place] [address] Kahlil Casas MD [address] [place] [address] [address] [place] [address] Encounter for screening for COVID-19 [...] Associated Diagnosis Comments SARS-COV-2 BY MOLECULAR Routine 12/15/2021 9:07 AM CDT Encounter for screening for COVID-19 documented in this encounter Results * SARS-COV-2 BY MOLECULAR (12/15/2021 9:07 AM CDT) SARSCOV2 NOT DETECTED (Referen ce Range for this test is Not Detected ) [facility] THERMOFISHER FAST DX 12/16/2021 6:49 AM CDT [facility] Comment:This test was perfor med by a RT-PCR method. Other Non-Phlebotomy Collection / Unknown 12/15/2021 9:07 AM CDT 12/15/2021 12:00 PM CDT Narrative [facility] - 12/16/2021 6:49 AM CDT Authorized Fact Sheets about this test for providers and patients are available at: https://www.fda.gov/medical-devices/rsxlpmwyr-prrnagcnvm-yyccgmw-devices/emergen cy-us e-authorizations us Kahlil Casas MD MICROBIOLOGY - GENERAL ORDERAB LES Final Result [facility] [address] [place] [address], documented in this encounter Visit Diagnoses Diagnosis Encounter for screening for COVID-19 documented in this encounter Additional Health Concerns Infection Onset Date Last Indicated Resolved Time COVID - 19 03/31/2021 05/18/2022 05/28/2022 12:1 6 AM PRESS TENDER SMOKE 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 COVID - 19 07/06/2022 08/31/2022 09/01/2022 11:3 5 AM PRESS TENDER SMOKE SIGNAL COVID - 19 Confirmed 08/31/2022 08/31/202209/20/ 023 12:18 AM CDT documented as of this encounter Care Teams Manufacturing Clerk Relationship Specialty Start Date End Date Provider, Unknown UNKNOWN PCP - General 03/31/21 05/17/22 Kahlil Casas MD [address] [place] [address] [address] [place] [address] PCP - General Family Medicine 05/18/22 10/25/22 Kacy Blackman MD [address] [facility] [address] [place] [address] PCP - General Family Medicine 10/26/22 Kenyon Cardoso DO Gastroenterology 11/24/15 [place] [address] [place] [address] Endocrinology 11/30/20 documented as of this encounter
== END 2024-09-18 08:15 | disposition home or self-care (01) ==
LOC: ANHBWCAUD 08:17
PROVIDERS: PCP Family Medicine; Visit Provider Family Medicine
DX: H90.3 Sensorineural hearing loss, bilateral (principal); H61.23 Impacted cerumen, bilateral; H93.8X2 Other specified disorders of left ear
CPT/HCPCS: 92557; 92567